=== PATIENT | female | born 1940 | race Caucasian/White ===

== ENCOUNTER 2017-01-09 13:32 | Emergency (ER) | payer OTHER ==
[~2017-01-09] VITALS: Ht 160 cm; Wt 56.5 kg
[~2017-01-09 13:32] MED LIST: BACT400T PO; CEPH500; HUMALOGP; LANTUSP SQ; LEVO50TA51 PO
[2017-01-09 13:43] VITALS: BP 153/86; PULSE 107; RESP 16; TEMP 98.3; O2SAT 96
[2017-01-09] MEDS ORDERED: LANTUS2P SQ (14:16)
[2017-01-09] MEDS ORDERED: NOVORP2 SQ (14:16)
[2017-01-09] MEDS ORDERED: LEVO50TA4 PO (14:16)
[2017-01-09] MEDS ORDERED: LIDOCAINE HCL 1% 50 ML VIAL INFIL ONE (15:00)
--- NOTE | 2017-01-09 15:06 | PD ---
HPI Chief Complaint: Eye Problems/Injury Time Seen by Provider: 14:50 Travel History International Travel<30 days: No Contact w/Intl Traveler<30days: No Traveled to known affect area: No History of Present Illness HPI 76-year-old female presents to the emergency room for evaluation of a stye to her right eye and an abscess to her right buttocks. Both started about the same time 4 days ago. She has been applying warm compresses to both without significant relief in symptoms. She reports the eye is more painful than the buttocks. She denies any spontaneous drainage from either. Denies problems with visual acuity. Denies fever, chills, nausea, and vomiting. PFSH Past Medical History High Cholesterol: Yes Diabetes: Yes Patient Takes Glucophage: No Diminished Hearing: No Gastrointestinal Disorders: Yes (IRRITABLE BOWEL SYNDROME) Hypertension: Yes Thyroid Disease: Yes Influenza Vaccination: No ?: Not Menopausal: Yes Past Surgical History Eye Surgery: Yes (LEFT EYE ANEURYSM;CATARACTS) Gynecologic Surgery: Yes (HYSTERECTOMY) Hysterectomy: Yes Tonsillectomy: Yes Other Surgery: Yes (SINUS) Social History Alcohol Use: No Tobacco Use: No Substance Use: No Allergies-Medications (Allergen,Severity, Reaction): Coded Allergies: procaine (Unverified Allergy, Severe, Anaphylaxis, 01/09/17) Reported Meds & Prescriptions Reported Meds & Active Scripts Active Clindamycin (Clindamycin HCl) 300 Mg Cap 300 Mg PO Q8HR 10 Days Reported Novolin R Inj (Insulin Human Regular) 1,000 Unit/10 Ml Vial 5 Units SQ TIDAC Max dose at bedtime:( )units; sugars less than 70,(0) units; sugars 150-199,(5)unit; sugars 200-249,(10)units; sugars 250-299,(15) units; sugars 300-349,(20)units; sugars greater than 349,(25)units Lantus Inj (Insulin Glargine) 1,000 Unit/10 Ml Vial 19 Units SQ DAILY Levothyroxine (Levothyroxine Sodium) 50 Mcg Tab 50 Mcg PO DAILY Review of Systems Except as stated in HPI: all other systems reviewed are Neg Physical Exam Narrative GENERAL: Well-nourished, well-developed female in no acute distress. Afebrile. Ambulatory. SKIN: Focused skin assessment warm/dry. There is an indurated area in the right upper lid and right buttocks which measure about 1 and 5 cm in diameter, respectively. Both are fluctuant with pointing but without drainage. There is a zone of inflammation around it but no lymphangitis. HEAD: Normocephalic. EYES: No scleral icterus. No injection or drainage. There is a large chalazion in the right upper, medial eyelid with surrounding erythema. NECK: Supple, trachea midline. No JVD or lymphadenopathy. CARDIOVASCULAR: Regular rate and rhythm without murmurs, gallops, or rubs. RESPIRATORY: Breath sounds equal bilaterally. No accessory muscle use. PSYCHIATRIC: No delusional thought processes. No hallucinations. Data Data Last Documented VS Vital Signs Date Time Temp Pulse Resp B/P Pulse Ox O2 Delivery O2 Flow Rate FiO2 01/09/17 13:43 98.3 107 16 153/86 96 Room Air Orders Lidocaine 1% Inj (50 Ml) (Xylocaine 1% I (01/09/17 15:00) MDM Medical Decision Making Medical Screen Exam Complete: Yes Emergency Medical Condition: Yes Medical Record Reviewed: Yes Differential Diagnosis Stye, chalazion, abscess, cellulitis Narrative Course 76-year-old female presents to the emergency room for evaluation of 2 separate complaints. First complaint is a stye to her right upper lid started 4 days ago. Second complaint is abscess to her right buttocks that started 4 days ago. Vital signs stable. Physical exam reveals a stye without spontaneous drainage of the right upper lid. No associated preseptal cellulitis. Patient initially reported that she had changes in visual acuity but when asked to read the eye chart, she refused stating her vision was fine. There is no injection or drainage from the eye. There is also a 5 cm abscess to the right buttocks without lymphangitis. Abscess was drained, see procedure note for details. Patient was encouraged to apply warm compresses to the eye for 20 minutes at a time, 5 times daily and follow-up with an dust control engineer in one week's symptoms persist for incision and drainage. She will be discharged with prescription for clindamycin. Told to return for worsening symptoms. She understands and agrees to plan. Procedures Procedure Narrative INCISION AND DRAINAGE OF ABSCESS: The area was prepped and was sterilely draped. A subcutaneous wheal of 1% lidocaine with a total number 3 mL was used to anesthetize the area properly. A number 11 scalpel was used to make a1 cm incision across the area of the abscess. The abscess was drained, complex loculations were broken down, and irrigated with normal saline. Cultures were obtained. Quarter inch iodoform packing was placed in the wound. Sterile dressing applied. Patient advised to have packing removed in two days. Diagnosis Primary Impression: Hordeolum externum of right upper eyelid Additional Impression: Abscess Referrals: Dehydration Unit Operator Primary Care Physician Patient Instructions: Abscess (ED), General Instructions, Stye (ED) Additional Instructions: Rest and drink plenty of fluids. Clindamycin as directed, until gone. Follow up with a primary care physician. Return to emergency room for worsening symptoms, as discussed. Scripts Clindamycin 300 Mg [id number] Mg PO Q8HR 10 Days Ref 0 Prov:Konrad De Santiago MD 01/09/17 Disposition: 01 DISCHARGE HOME Condition: Stable Kim Sykes Jan 09, 2017 15:06
[2017-01-09] MEDS ORDERED: CLIN1CAP6 PO (15:38)
== END 2017-01-09 16:21 | disposition home or self-care (01) ==
LOC: PHEFT 13:32
DX: H00.011 Hordeolum externum right upper eyelid (principal); L02.31 Cutaneous abscess of buttock; B95.62 Methicillin resistant Staphylococcus aureus infection as the cause of diseases classified elsewhere; E11.9 Type 2 diabetes mellitus without complications; I10 Essential (primary) hypertension; E07.9 Disorder of thyroid, unspecified; E78.00 Pure hypercholesterolemia, unspecified; Z79.4 Long term (current) use of insulin; Z87.19 Personal history of other diseases of the digestive system
CPT/HCPCS: 10060; 86403; 87070; 87186; 87205

== ENCOUNTER 2017-01-13 11:45 | Inpatient (IN) | payer OTHER, MEDICARE ==
[~2017-01-13] VITALS: Ht 162.6 cm; Wt 59.1 kg
[~2017-01-13 11:45] MED LIST changes: -BACT400T PO; -CEPH500; +CLIN1CAP6 PO; -HUMALOGP; +LANTUS2P SQ; -LANTUSP SQ; +LEVO50TA4 PO; -LEVO50TA51 PO; +NOVORP2 SQ
[2017-01-13] MEDS ORDERED: INSULIN NovoLIN REGULAR SUPPLEMENTAL SCALE ONE (13:05)
[2017-01-13 13:26] LABS: AUTOMATED NEUTROPHIL # 11.2 TH/MM3 (1.8-7.7); BASOPHIL % 0.3 % (0.0-2.0); EOSINOPHIL % 0.3 % (0.0-4.0); HEMO FLAGS DIFF FINAL; LYMPH % 5.7 % (9.0-44.0); LYMPHOCYTE # 0.7 TH/MM3 (1.0-4.8); MEAN CELL VOLUME 91.3 FL (80.0-100.0); MEAN CORPUSCULAR HGB CONC 32.9 % (32.0-36.0); MONO % 2.8 % (0.0-8.0); NEUT % 90.9 % (16.0-70.0); PLATELET COUNT 237 TH/MM3 (150-450); RED BLOOD COUNT 4.05 MIL/MM3 (4.00-5.30); RED CELL DISTRIBUTION WIDTH 12.8 % (11.6-17.2); WHITE BLOOD COUNT 12.2 TH/MM3 (4.0-11.0)
[2017-01-13 13:33] LABS: URINE COLOR YELLOW (YELLW/STRAW)
[2017-01-13 13:34] LABS: BLOOD, URINE TRACE (NEG); GLUCOSE,URINE NEG (NEG); KETONE, URINE 40 mg/dL (NEG); NITRITE,URINE NEG (NEG); PH, URINE 5.5 (5.0-8.5); RBC, URINE 0-3 /hpf (0-3); SQUAMOUS EPITHELIAL CELL URINE 0-5 /hpf (0-5); WBC, URINE 0-2 /hpf (0-5)
[2017-01-13 13:35] LABS: COMMENT (UR) CULT NOT INDICATED; CULTURE IF INDICATED CULT NOT INDICATED
[2017-01-13 13:39] LABS: BLOOD UREA NITROGEN 26 MG/DL (7-18); GLOMERULAR FILTRATION RATE 36 ML/MIN (>89)
[2017-01-13 13:40] LABS: ALKALINE PHOSPHATASE 144 U/L (45-117); ALT (GPT) 18 U/L (10-53); ANION GAP 16 MEQ/L (5-15); AST (GOT) 18 U/L (15-37); CHLORIDE 89 MEQ/L (98-107); CREATINE KINASE 115 U/L (26-192); POTASSIUM 5.1 MEQ/L (3.5-5.1); SODIUM (NA) 127 MEQ/L (136-145); TOTAL BILIRUBIN ADULT 0.8 MG/DL (0.2-1.0)
[2017-01-13] MEDS: SODIUM CHLOR 0.9% 1000 ML INJ 1,000 ML IV SCH (14:05)
--- NOTE | 2017-01-13 14:06 | PD ---
HPI Chief Complaint: nausea and diarrhea Time Seen by Provider: 13:55 Travel History International Travel<30 days: No Contact w/Intl Traveler<30days: No Traveled to known affect area: No History of Present Illness HPI 76-year-old female patient with history diabetes, recently seen for buttocks abscess, placed on antibiotics for several days and presents back to the ER today for nausea, multiple episodes of diarrhea daily, and not feeling well, chest pains, headaches, shoulder discomfort. She denies any vomiting, fevers, or other symptoms. She states that her symptoms seem to worsen every time she takes antibiotic. Modifying Factors: None Associated Signs & Symptoms: Nausea, diarrhea, chest discomfort, chills, neck and shoulder discomfort. Risk Factors: On antibiotics for several days PFSH Past Medical History High Cholesterol: Yes Diabetes: Yes Diminished Hearing: No Gastrointestinal Disorders: Yes (IRRITABLE BOWEL SYNDROME) Hypertension: Yes Thyroid Disease: Yes Menopausal: Yes Past Surgical History Eye Surgery: Yes (LEFT EYE ANEURYSM;CATARACTS) Gynecologic Surgery: Yes (HYSTERECTOMY) Hysterectomy: Yes Tonsillectomy: Yes Other Surgery: Yes (SINUS) Social History Alcohol Use: No Tobacco Use: No Substance Use: No Allergies-Medications (Allergen,Severity, Reaction): Coded Allergies: procaine (Unverified Allergy, Severe, Anaphylaxis, 01/09/17) Reported Meds & Prescriptions Reported Meds & Active Scripts Active Clindamycin (Clindamycin HCl) 300 Mg Cap 300 Mg PO Q8HR 10 Days Reported Novolin R Inj (Insulin Human Regular) 1,000 Unit/10 Ml Vial 5 Units SQ TIDAC Max dose at bedtime:( )units; sugars less than 70,(0) units; sugars 150-199,(5)unit; sugars 200-249,(10)units; sugars 250-299,(15) units; sugars 300-349,(20)units; sugars greater than 349,(25)units Lantus Inj (Insulin Glargine) 1,000 Unit/10 Ml Vial 19 Units SQ DAILY Levothyroxine (Levothyroxine Sodium) 50 Mcg Tab 50 Mcg PO DAILY Review of Systems Except as stated in HPI: all other systems reviewed are Neg Physical Exam Narrative GENERAL: Well-developed elderly white female patient currently in moderate distress. Awake and oriented 3. SKIN: Focused skin assessment warm/dry. HEAD: Atraumatic. Normocephalic. EYES: Pupils equal and round. No scleral icterus. No injection or drainage. ENT: No nasal bleeding or discharge. Mucous membranes pink and moist. NECK: Trachea midline. No JVD. CARDIOVASCULAR: Regular rate and rhythm. No murmur appreciated. RESPIRATORY: No accessory muscle use. Clear to auscultation. Breath sounds equal bilaterally. GASTROINTESTINAL: Abdomen soft, non-tender, nondistended. Hepatic and splenic margins not palpable. BACK: No CVA tenderness. No rash. No point tenderness on palpation of the spine. Buttocks abscess area appears to be self draining and the induration is 3 cm with no underlying fluctuance. MUSCULOSKELETAL: No obvious deformities. No clubbing. No cyanosis. No edema. NEUROLOGICAL: Awake and alert. No obvious cranial nerve deficits. Motor grossly within normal limits. Normal speech. PSYCHIATRIC: Appropriate mood and affect; insight and judgment normal. Data Data Orders Orders Insulin Human Reg Supp Scale (Novolin R (01/13/17 13:05) Complete Blood Count With Diff (01/13/17 11:50) Creatine Kinase (Cpk) (01/13/17 11:50) Comprehensive Metabolic Panel (01/13/17 11:50) Troponin I (01/13/17 11:50) Urinalysis - C+S If Indicated (01/13/17 11:50) Lactic Acid (01/13/17 11:50) Blood Culture (01/13/17 11:50) Blood Culture (01/13/17 12:10) Beta Hydroxybutyrate (Acetone) (01/13/17 11:50) Admit Order (Ed Use Only) (01/13/17 13:55) Labs Laboratory Tests Test 01/13/17 11:50 White Blood Count 12.2 TH/MM3 Red Blood Count 4.05 MIL/MM3 Hemoglobin 12.2 GM/DL Hematocrit 37.0 % Mean Corpuscular Volume 91.3 FL Mean Corpuscular Hemoglobin 30.0 PG Mean Corpuscular Hemoglobin Concent 32.9 % Red Cell Distribution Width 12.8 % Platelet Count 237 TH/MM3 Mean Platelet Volume 9.8 FL Neutrophils (%) (Auto) 90.9 % Lymphocytes (%) (Auto) 5.7 % Monocytes (%) (Auto) 2.8 % Eosinophils (%) (Auto) 0.3 % Basophils (%) (Auto) 0.3 % Neutrophils # (Auto) 11.2 TH/MM3 Lymphocytes # (Auto) 0.7 TH/MM3 Monocytes # (Auto) 0.3 TH/MM3 Eosinophils # (Auto) 0.0 TH/MM3 Basophils # (Auto) 0.0 TH/MM3 CBC Comment DIFF FINAL Differential Comment Urine Color YELLOW Urine Turbidity CLEAR Urine pH 5.5 Urine Specific [place] 1.028 Urine Protein NEG mg/dL Urine Glucose (UA) NEG mg/dL Urine Ketones 40 mg/dL Urine Occult Blood TRACE Urine Nitrite NEG Urine Bilirubin NEGATIVE Urine Leukocyte Esterase NEGATIVE Urine RBC 0-3 /hpf Urine WBC 0-2 /hpf Urine Squamous Epithelial Cells 0-5 /hpf Microscopic Urinalysis Comment CULT NOT INDICATED Blood Urea Nitrogen 26 MG/DL Creatinine 1.40 MG/DL Random Glucose 869 MG/DL Total Protein 6.9 GM/DL Albumin 3.5 GM/DL Calcium Level 9.1 MG/DL Alkaline Phosphatase 144 U/L Aspartate Amino Transf (AST/SGOT) 18 U/L Alanine Aminotransferase (ALT/SGPT) 18 U/L Total Bilirubin 0.8 MG/DL Sodium Level 127 MEQ/L Potassium Level 5.1 MEQ/L Chloride Level 89 MEQ/L Carbon Dioxide Level 22.0 MEQ/L Anion Gap 16 MEQ/L Estimat Glomerular Filtration Rate 36 ML/MIN Lactic Acid Level 2.5 mmol/L Total Creatine Kinase 115 U/L Troponin I LESS THAN 0.02 NG/ML B-Hydroxybutyrate 3.21 MMOL/L MDM Medical Decision Making Medical Screen Exam Complete: Yes Emergency Medical Condition: Yes Medical Record Reviewed: Yes Interpretation(s) EKG shows sinus tachycardia of 112 bpm with no signs of acute ST-T changes. Laboratory Tests Test 01/13/17 11:50 White Blood Count 12.2 TH/MM3 (4.0-11.0) Neutrophils (%) (Auto) 90.9 % (16.0-70.0) Lymphocytes (%) (Auto) 5.7 % (9.0-44.0) Neutrophils # (Auto) 11.2 TH/MM3 (1.8-7.7) Lymphocytes # (Auto) 0.7 TH/MM3 (1.0-4.8) Urine Ketones 40 mg/dL (NEG) Urine Occult Blood TRACE (NEG) Blood Urea Nitrogen 26 MG/DL (7-18) Creatinine 1.40 MG/DL (0.50-1.00) Random Glucose 869 MG/DL (74-106) Alkaline Phosphatase 144 U/L (45-117) Sodium Level 127 MEQ/L (136-145) Chloride Level 89 MEQ/L (98-107) Anion Gap 16 MEQ/L (5-15) Estimat Glomerular Filtration Rate 36 ML/MIN (>89) Lactic Acid Level 2.5 mmol/L (0.4-2.0) Troponin I LESS THAN 0.02 NG/ML B-Hydroxybutyrate 3.21 MMOL/L (0.00-0.39) Differential Diagnosis Sepsis versus C. difficile diarrhea versus dehydration versus metabolic issues Narrative Course Lab work shows significant dehydration and severe hyperglycemia and hyponatremia. IV fluids and insulin was given in the ER. Her ketones are also elevated and I think that this signifies underlying dehydration. Patient states she has been trying to drink lots of fluids. My plan at this point would be to admit her for further treatment. Case was discussed with Dr. Ryder for admission. Diagnosis Primary Impression: Diarrhea Additional Impressions: Hyperglycemia due to type 2 diabetes mellitus Hyponatremia Admitting Information Admitting Physician Requests: Admit Brittney Feng MD Jan 13, 2017 14:06
[2017-01-13] MEDS ORDERED: NALOXONE HCL 0.4 MG/ML AMP IV PRN (14:15)
[2017-01-13] MEDS ORDERED: ACETAMINOPHEN 325 MG TAB PO PRN (14:15)
[2017-01-13] MEDS ORDERED: LACTULOSE SYRUP 20 GM/30 ML CUP PO PRN (14:15)
[2017-01-13] MEDS ORDERED: SODIUM CHLORIDE 0.9% FLUSH 10 ML FLUSH IV FLUSH PRN (14:15)
[2017-01-13] MEDS ORDERED: INSULIN DETEMIR 100 UNITS/ML VIAL SQ ONE (14:15)
[2017-01-13] MEDS ORDERED: GLUCAGON 1 MG/ML VIAL OTHER PRN (14:15)
[2017-01-13] MEDS ORDERED: DEXTROSE 50% IN WATER 50 ML VIAL(D50) IV PRN (14:15)
--- NOTE | 2017-01-13 14:29 | RADRPT ---
EXAM DATE/TIME: 01/13/2017 12:25 [facility] COMPARISON: No previous studies available for comparison. INDICATIONS : Short of breath. MEDICAL HISTORY : None. SURGICAL HISTORY : None. ENCOUNTER: Initial ACUITY: 1 day PAIN SCORE: 6/10 LOCATION: Bilateral chest FINDINGS: A single view of the chest demonstrates the lungs to be symmetrically aerated without evidence of mas s, infiltrate or effusion. There is slight interstitial prominence and cardiomegaly. The cardiomedias tinal contours are unremarkable. Osseous structures are intact. CONCLUSION: Cardiomegaly with slight interstitial prominence, could be interstitial edema. Nomi Vargas MD on January 13, 2017 at 12:35 Board Certified Radiologist. This report was verified electronically.
[2017-01-13 14:45] VITALS: BP 136/73
[2017-01-13] MEDS ORDERED: CALCIUM CARBONATE 500 MG CHEWABLE TAB CHEW PRN (14:45)
--- NOTE | 2017-01-13 14:47 | HHI.HP ---
[facility] Service [facility] Primary Care Physician Unknown Admission Diagnosis dehydration/hyperglycemia/hyponatremia/diarrhea Diagnoses: (1) Diabetic ketoacidosis Diagnosis: Principal (2) Hyponatremia Diagnosis: Principal (3) Diarrhea Diagnosis: Principal (4) Lactic acid acidosis Diagnosis: Principal (5) Acute renal failure superimposed on stage 2 chronic kidney disease Diagnosis: Principal Chief Complaint: Distant feel right, tense Travel History International Travel<30 Days: No Contact w/Intl Traveler <30 Da: No Traveled to Known Affected Are: No History of Present Illness Written by Brandyn Young, acting as scribe for Dr. Ryder on 01/13/17 at 14 :35. 76-year-old female with known history of diabetes, hypertension, hyperlipidemia, hypothyroidism, recent history of gluteal abscess who presented to hospital because she just didn't feel well. She cannot explain exactly her symptoms other than she does not feel good. However the patient was here in the ER 4 days ago and had incision and drainage done to a right gluteal abscess and was started on clindamycin. Patient states that she was doing well and the next day she felt fantastic. She states that every time that she took the medication, she got heartburn. She thought that she may have been either given the wrong medication or overmedicated. The patient started having weird sensation in which she described as a tense feeling in her upper body. She has some mild abdominal cramping this morning. She had 3 bowel movements today which were soft in nature. Her bowel movements were normal yesterday. The patient indicates that she did not take her insulin this morning and she went to [facility] and got a smoothie, after that she remembered about her insulin so she went home and took it, by that time she was not feeling that well so she came to the hospital for evaluation. Patient indicates that she has not checked her sugar because she has been out of test strips. After further assessment the patient she appears to be rather noncompliant with her medications. Patient had workup done in emergency department and found to have uncontrolled diabetes with anion gap, lactic acidosis, hyponatremia. For those reasons is recommended that the patient be observed in the hospital Review of Systems Gastrointestinal: COMPLAINS OF: Abdominal pain, Diarrhea Except as stated in HPI: all other systems reviewed are Neg Past Family Social History Past Medical History Hypertension Hyperlipidemia Diabetes Hypothyroidism Past Surgical History Hysterectomy Cataract surgery Tonsillectomy Reported Medications Reported Meds & Active Scripts Active Clindamycin (Clindamycin HCl) 300 Mg Cap 300 Mg PO Q8HR 10 Days Reported Novolin R Inj (Insulin Human Regular) 1,000 Unit/10 Ml Vial 5 Units SQ TIDAC Max dose at bedtime:( )units; sugars less than 70,(0) units; sugars 150-199,(5)unit; sugars 200-249,(10)units; sugars 250-299,(15) units; sugars 300-349,(20)units; sugars greater than 349,(25)units Lantus Inj (Insulin Glargine) 1,000 Unit/10 Ml Vial 19 Units SQ DAILY Levothyroxine (Levothyroxine Sodium) 50 Mcg Tab 50 Mcg PO DAILY Allergies: Coded Allergies: procaine (Unverified Allergy, Severe, Anaphylaxis, 01/13/17) Family History Reviewed and significant for heart disease and diabetes. Mother from myocardial infarction, she did have diabetes. Social History Patient denies any tobacco, alcohol or illicit drugs Physical Exam Physical Exam GENERAL: Well-developed, well-nourished, in no acute distress. alert and orientated HEENT: Head is normocephalic without any lesions or masses noted. Facial features are symmetric. Eyes: Pupils equal round reactive to light. Extraocular muscles are intact. Conjunctivae were clear. Oropharyngeal: Pharynx without any erythema edema. Tongue is midline without deviation. Buccal mucosa is moist without any masses or lesions NECK: Supple without any masses. Trachea midline no deviation. No JVD, no bruits are appreciated CARDIAC: Regular rhythm, regular rate. S1/S2 are heard. No murmurs gallops or rubs. LUNGS: Clear to auscultation bilaterally. No wheeze, rhonchi or rales. No use of accessory muscles on inspiration or expiration. ABDOMEN: Soft, nontender. Nondistended. Bowel sounds heard in all 4 quadrants. No organomegaly or masses. Negative rebound, negative guarding EXTREMITIES: No edema, pulses are equal bilaterally. No cyanosis or clubbing NEUROLOGY: Mood and affect appear appropriate. Cranial nerves II through XII grossly intact. Muscle strength 5/5 in upper and lower extremities bilaterally. Deep tendon reflexes are 2+ in upper and lower extremities bilaterally. RIGHT GLUTEUS: Patient has approximately 5 mm incision with a wet eschar wound noted with erythema. No exudates were able to be expressed. Laboratory Laboratory Tests Test 01/13/17 11:50 01/13/17 14:20 White Blood Count 12.2 Red Blood Count 4.05 Hemoglobin 12.2 Hematocrit 37.0 Mean Corpuscular Volume 91.3 Mean Corpuscular Hemoglobin 30.0 Mean Corpuscular Hemoglobin Concent 32.9 Red Cell Distribution Width 12.8 Platelet Count 237 Mean Platelet Volume 9.8 Neutrophils (%) (Auto) 90.9 Lymphocytes (%) (Auto) 5.7 Monocytes (%) (Auto) 2.8 Eosinophils (%) (Auto) 0.3 Basophils (%) (Auto) 0.3 Neutrophils # (Auto) 11.2 Lymphocytes # (Auto) 0.7 Monocytes # (Auto) 0.3 Eosinophils # (Auto) 0.0 Basophils # (Auto) 0.0 CBC Comment DIFF FINAL Differential Comment Urine Color YELLOW Urine Turbidity CLEAR Urine pH 5.5 Urine Specific [place] 1.028 Urine Protein NEG Urine Glucose (UA) NEG Urine Ketones 40 Urine Occult Blood TRACE Urine Nitrite NEG Urine Bilirubin NEGATIVE Urine Leukocyte Esterase NEGATIVE Urine RBC 0-3 Urine WBC 0-2 Urine Squamous Epithelial Cells 0-5 Microscopic Urinalysis Comment CULT NOT INDICATED Blood Urea Nitrogen 26 Creatinine 1.40 Random Glucose 869 Total Protein 6.9 Albumin 3.5 Calcium Level 9.1 Alkaline Phosphatase 144 Aspartate Amino Transf (AST/SGOT) 18 Alanine Aminotransferase (ALT/SGPT) 18 Total Bilirubin 0.8 Sodium Level 127 Potassium Level 5.1 Chloride Level 89 Carbon Dioxide Level 22.0 Anion Gap 16 Estimat Glomerular Filtration Rate 36 Lactic Acid Level 2.5 Total Creatine Kinase 115 Troponin I LESS THAN 0.02 B-Hydroxybutyrate 3.21 Date/Time Source Procedure Growth Status 01/13/17 12:10 Blood Peripheral Aerobic Blood Culture Pending Received 01/13/17 12:10 Blood Peripheral Anaerobic Blood Culture Pending Received 01/13/17 14:25 Wound Buttock Gram Stain Pending Received 01/13/17 14:25 Wound Buttock Wound Culture Pending Received Result Diagram: 01/13/17 1150 01/13/17 1150 Caprini VTE Risk Assessment Caprini VTE Risk Assessment: Mod/High Risk (score >= 2) Caprini Risk Assessment Model Point Value = 1 Point Value = 2 Point Value = 3 Point Value = 5 Age 41-60 Minor surgery BMI > 25 kg/m2 Swollen legs Varicose veins or History of unexplained or recurrent spontaneous Oral contraceptives or hormone replacement Sepsis (< 1 month) Serious lung disease, including pneumonia (< 1 month) Abnormal pulmonary function Acute myocardial infarction Congestive heart failure (< 1 month) History of inflammatory bowel disease Medical patient at bed rest Age 61-74 Arthroscopic surgery Major open surgery (> 45 min) Laparoscopic surgery (> 45 min) Malignancy Confined to bed (> 72 hours) Immobilizing plaster cast Central venous access Age >= 75 History of VTE Family history of VTE Factor V Leiden Prothrombin [id number] Lupus anticoagulant Anticardiolipin antibodies Elevated serum homocysteine Heparin-induced thrombocytopenia Other congenital or acquired thrombophilia Stroke (< 1 month) Elective arthroplasty Hip, pelvis, or leg fracture Acute spinal cord injury (< 1 month) Prophylaxis Regimen Total Risk Factor Score Risk Level Prophylaxis Regimen 0-1 Low Early ambulation 2 Moderate Order ONE of the following: *Sequential Compression Device (SCD) *Heparin 5000 units SQ BID 3-4 Higher Order ONE of the following medications: *Heparin 5000 units SQ TID *Enoxaparin/Lovenox 40 mg SQ daily (WT < 150 kg, CrCl > 30 mL/min) *Enoxaparin/Lovenox 30 mg SQ daily (WT < 150 kg, CrCl > 10-29 mL/min) *Enoxaparin/Lovenox 30 mg SQ BID (WT < 150 kg, CrCl > 30 mL/min) AND/OR *Sequential Compression Device (SCD) 5 or more Highest Order ONE of the following medications: *Heparin 5000 units SQ TID (Preferred with Epidurals) *Enoxaparin/Lovenox 40 mg SQ daily (WT < 150 kg, CrCl > 30 mL/min) *Enoxaparin/Lovenox 30 mg SQ daily (WT < 150 kg, CrCl > 10-29 mL/min) *Enoxaparin/Lovenox 30 mg SQ BID (WT < 150 kg, CrCl > 30 mL/min) AND *Sequential Compression Device (SCD) Assessment and Plan Assessment and Plan Diabetic ketoacidosis with anion gap Patient did not take her insulin this morning and had a smoothie and has been not that compliant with her medications and monitoring her diabetes Request diabetic/dietary education Start sliding scale insulin every hour and adjust for control of diabetes Obtain hemoglobin A1c Monitor BMP until anion gap has closed Pseudohyponatremia secondary to glucose, corrected sodium 141 Acute renal failure superimposed on chronic kidney disease stage II Likely secondary to diabetic ketoacidosis Continue IV fluids Monitor renal functions Stool/diarrhea with mild lactic acidosis Recent clindamycin use Check stool for C. difficile Right gluteal abscess, healing well Hold clindamycin at this time due to possible C. difficile infection Vancomycin has been started DVT prevention Subcutaneous Lovenox Addendum to Inpatient Note Additional Information This note was transcribed by [email or web address]. I, Dr. Cece Ryder personally performed the history, physical exam, and medical decision making; and confirmed the accuracy of the information in the transcribed note. Authenticated by Dr. Cece Ryder on 01/13/17 at 14:49. Problem Qualifiers (1) Diabetic ketoacidosis: Qualified Codes: E13.10 - Other specified diabetes mellitus with ketoacidosis without coma (2) Diarrhea: Qualified Codes: R19.7 - Diarrhea, unspecified Brandyn Young Jan 13, 2017 14:47 Cece Ryder MD Jan 13, 2017 14:49
[2017-01-13] MEDS ORDERED: NOVOLOGP2 SQ (15:43)
[2017-01-13 16:00] VITALS: BP 142/82; PULSE 105; RESP 16; TEMP 98.1; O2SAT 97
[2017-01-13] MEDS: VANCOMYCIN INJ 1,000 MG in SODIUM CHLOR 0.9% 250 ML INJ 250 ML IV SCH (16:22)
[2017-01-13] MEDS: ENOXAPARIN SODIUM 40 MG/0.4 ML SYRINGE SQ SCH (16:23)
[2017-01-13] MEDS: INSULIN ASPART SUPPLEMENTAL SCALE SQ SCH ×2 (17:17→21:41)
[2017-01-13 17:39] LABS: FREE T3 1.77 PG/ML (2.18-3.98); FREE T4 1.66 NG/DL (0.76-1.46)
[2017-01-13 20:29] VITALS: BP 106/60; PULSE 101; RESP 20; TEMP 98; O2SAT 96
--- NOTE | 2017-01-13 20:29 | EKG ---
Date Performed: 01/13/2017 Time Performed: 11:54:04 PTAGE: 76 years EKG: SINUS TACHYCARDIA MINIMAL NONSPECIFIC ST DEPRESSION ABNORMAL RHYTHM ECG NO PREVIOUS TRACING DOCTOR: Daryl Rivera Interpretating Date/Time 01/13/2017 20:27:07
[2017-01-13] MEDS: SODIUM CHLORIDE 0.9% FLUSH 10 ML FLUSH IV FLUSH SCH (21:20)
[2017-01-14] VITALS (7 sets, daily range): BP systolic 110–155; BP diastolic 68–95; PULSE 80–94; RESP 16–20; TEMP 97.7–99; O2SAT 96–98
[2017-01-14] MEDS: SODIUM CHLOR 0.9% 1000 ML INJ 1,000 ML IV SCH ×4 (01:49→23:30)
[2017-01-14] MEDS: VANCOMYCIN INJ 1,000 MG in SODIUM CHLOR 0.9% 250 ML INJ 250 ML IV SCH ×2 (02:19→15:51)
[2017-01-14 05:32] LABS: POTASSIUM 4.2 MEQ/L (3.5-5.1)
[2017-01-14] MEDS: LEVOTHYROXINE SODIUM 50 MCG TAB PO SCH (05:32)
[2017-01-14 05:37] LABS: BICARBONATE 27.9 MEQ/L (21.0-32.0)
[2017-01-14] MEDS ORDERED: INSULIN DETEMIR 100 UNITS/ML VIAL SQ SCH ×2 (08:00→09:00)
[2017-01-14] MEDS: SODIUM CHLORIDE 0.9% FLUSH 10 ML FLUSH IV FLUSH SCH ×2 (09:00→20:29)
--- NOTE | 2017-01-14 09:12 | HHI.PR ---
Subjective Remarks The patient states that she feels much better. No further episodes of loose stools. Patient denies any chest pain overnight. Patient states that she did not have chest pain yesterday, but she did have what she calls a cramp in her chest and arms yesterday beginning about 10:30 and lasting until she arrived to the emergency department. The patient also states that she had some periorbital eye spasm in the right eye yesterday and she is concerned that the hordeolum is coming back. Overnight the patient's blood sugar dipped into the 30s. The patient is eating well and no longer feels weak. Of note the patient's daughter called the nurse and informed the nurse that the patient is homeless and currently living out of her car, is "stubborn" and refuses to go to an assisting living facility, and that the daughter has concerns about the patient's capacity at times. Objective Vitals Vital Signs Date Time Temp Pulse Resp B/P (MAP) Pulse Ox O2 Delivery O2 Flow Rate FiO2 01/14/17 08:00 97.9 93 20 138/81 (100) 96 01/14/17 04:38 98.3 80 16 142/78 (99) 98 01/14/17 01:35 93 01/14/17 00:13 98.1 90 18 110/68 (82) 98 01/13/17 20:29 98.0 101 20 106/60 (75) 96 01/13/17 16:00 98.1 105 16 142/82 (102) 97 01/13/17 14:45 104 18 136/73 (94) 98 I/O 01/13/17 01/13/17 01/13/17 01/14/17 01/14/17 01/14/17 06:59 14:59 22:59 06:59 14:59 22:59 Intake Total 985 ml 1872 ml Balance 985 ml 1872 ml Intake IV Total 985 ml 1872 ml # Voids 2 1 Result Diagram: 01/13/17 1150 01/14/17 0445 Objective Remarks GENERAL: Well-nourished, well-developed very pleasant female patient. SKIN: Warm and dry. HEAD: Normocephalic. EYES: No scleral icterus. No injection or drainage. No hordeolum noted. No orbital edema. NECK: Supple, trachea midline. No JVD or lymphadenopathy. CARDIOVASCULAR: Regular rate and rhythm without murmurs, gallops, or rubs. RESPIRATORY: Breath sounds equal bilaterally. No accessory muscle use. GASTROINTESTINAL: Abdomen soft, non-tender, nondistended. EXTREMITIES: No cyanosis, or edema. NEUROLOGICAL: Awake, alert, and oriented x 3. Non-focal. Normal insight and judgment. Capacity appears intact. A/P Problem List: (1) Hyponatremia ICD Code: E87.1 - Hypo-osmolality and hyponatremia Status: Acute (2) Diarrhea ICD Code: R19.7 - Diarrhea, unspecified Status: Resolved (3) Lactic acid acidosis ICD Code: E87.2 - Acidosis Status: Resolved (4) Acute renal failure superimposed on stage 2 chronic kidney disease ICD Code: N17.9 - Acute kidney failure, unspecified; N18.2 - Chronic kidney disease, stage 2 (mild) Status: Resolved (5) Abscess of buttock ICD Code: L02.31 - Cutaneous abscess of buttock (6) MRSA infection ICD Code: A49.02 - Methicillin resistant Staphylococcus aureus infection, unspecified site Status: Acute (7) Elevated troponin I level ICD Code: R74.8 - Abnormal levels of other serum enzymes (8) Uncontrolled type 2 diabetes mellitus with hyperosmolar nonketotic hyperglycemia ICD Code: E11.00 - Type 2 diabetes mellitus with hyperosmolarity without nonketotic hyperglycemic-hyperosmolar coma ([facility]) Status: Resolved (9) Hyperglycemia due to type 2 diabetes mellitus ICD Code: E11.65 - Type 2 diabetes mellitus with hyperglycemia Status: Acute Assessment and Plan -Hyperglycemic, hyperosmolar state without coma, resolved. Overnight she had an episode of hypoglycemia Patient did not take her insulin on day of admission and had a smoothie and has been not that compliant with her medications and monitoring her diabetes Request diabetic/dietary education Change sliding scale to low NovoLog insulin including 3 AM insulin Obtain hemoglobin A1c Decrease Levemir to 10 units subcutaneous before meals Monitor BMP until anion gap has closed Pseudohyponatremia secondary to glucose Acute renal failure superimposed on chronic kidney disease stage II - resolved. Continue IV fluids Monitor renal functions Stool/diarrhea with mild lactic acidosis - no further stools since admission Recent clindamycin use Check stool for C. difficile-if she has another loose stool Continue Lactinex Chest pain, "cramping" in nature, resolved -Mild troponin elevation to 0.2, cardiology has been consulted for opinion Right gluteal abscess, healing well, no further drainage, MRSA positive Hold clindamycin at this time due to possible C. difficile infection Continue Vancomycin Hypothyroidism TSH is within normal limits, the patient reports noncompliance with her Synthroid. Synthroid 50 g daily has been resumed. Social situation - daughter reports that the patient is homeless and living out of her car. Patient appears to have capacity at this time. We'll consult case management for assistance. DVT prevention Subcutaneous Lovenox Problem Qualifiers (1) Diarrhea: Qualified Codes: R19.7 - Diarrhea, unspecified Cece Ryder MD Jan 14, 2017 09:12
[2017-01-14] MEDS ORDERED: GLUCAGON 1 MG/ML VIAL OTHER PRN (09:15)
[2017-01-14] MEDS ORDERED: DEXTROSE 50% IN WATER 50 ML VIAL(D50) IV PRN (09:15)
--- NOTE | 2017-01-14 10:52 | MB ---
cc: MILLIE ZIMMERMAN MD DATE OF CONSULTATION: 01/14/2017 REASON FOR CONSULTATION Atypical chest pain and abnormal troponin. HISTORY OF PRESENT ILLNESS The patient is a very pleasant 76-year-old woman with a history of severe diabetes, hypertension, hyperlipidemia, hypothyroidism, who presented with generally vague symptoms of not feeling well but did include some vague chest and bilateral shoulder discomfort. She was really not able to qualify these symptoms any further. As part of her work-up she had two sets of troponins which were mildly abnormal and thus I was consulted. She says her sugars have been quite bad lately, particularly as she missed a dose of insulin, and on admission her sugar was 869. She is feeling somewhat better without that sense of chest discomfort. She does say intermittently she gets what she calls indigestion. No shortness of breath, lightheadedness, dizziness or syncope. PAST MEDICAL HISTORY As above. MEDICATIONS Current medications: 1. Insulin. 2. IV vancomycin. ALLERGIES PROCAINE. PHYSICAL EXAMINATION VITAL SIGNS: Afebrile. Pulse 93, respiratory rate 20, BP 130/81. Satting 96 on room air. GENERAL: A pleasant well-appearing woman in no distress. NECK: No JVD. LUNGS: Clear to auscultation bilaterally. CARDIOVASCULAR: Regular rate and rhythm. No murmurs appreciated. ABDOMEN: Benign. EXTREMITIES: No edema. LABORATORY DATA Sodium 141, potassium 4.2, chloride 106, bicarb 27.9, BUN 19, creatinine 0.82, glucose 246 down from 869. The third troponin is slightly positive at 0.2. White count 12.2, hematocrit 37.0, platelets 237. IMAGING Chest x-ray showed cardiomegaly. EKG EKG showed sinus tachycardia with diffuse ST changes, nonspecific but could indicate ischemia. IMPRESSION/RECOMMENDATIONS Elevated troponin with vague chest discomfort. Given her elevated troponin and abnormal EKG and significant risk factors, I did offer her a cardiac catheterization but she declines at this time and wishes to pursue noninvasive diagnostics first such as a stress test. I will order the nuclear stress test and if there is significant ischemia I would likely again recommend a cardiac catheterization. Further recommendations will be based on the stress test and her clinical course. Thank you again for the opportunity to participate in this patient's care. MD KEVEN Oliver /10:29 AM /10:41 AM
[2017-01-14] MEDS ORDERED: INSULIN ASPART SUPPLEMENTAL SCALE SQ SCH (11:00)
[2017-01-14] MEDS: INSULIN ASPART SUPPLEMENTAL SCALE SQ SCH ×3 (11:52→20:31)
[2017-01-14 14:46] LABS: C. DIFF EPI 027 PRESUMPTIVE NEGATIVE (NEGATIVE)
[2017-01-14] MEDS: ENOXAPARIN SODIUM 40 MG/0.4 ML SYRINGE SQ SCH (15:50)
[2017-01-14 16:08] LABS: HEMOGLOBIN A1a 1.4 %; HEMOGLOBIN A1b 1.3 %; HEMOGLOBIN Ao 73.3 %; HEMOGLOBIN F 1.9 %; HEMOGLOBIN LA1C 4.3 %; HEMOGLOBIN P3 6.2 %
[2017-01-15] VITALS (7 sets, daily range): BP systolic 122–168; BP diastolic 71–97; PULSE 75–103; RESP 16–20; TEMP 95.8–98.5; O2SAT 93–98
[2017-01-15] MEDS: VANCOMYCIN INJ 1,000 MG in SODIUM CHLOR 0.9% 250 ML INJ 250 ML IV SCH ×2 (02:48→16:20)
[2017-01-15] MEDS: LEVOTHYROXINE SODIUM 50 MCG TAB PO SCH (05:47)
[2017-01-15] MEDS: SODIUM CHLOR 0.9% 1000 ML INJ 1,000 ML IV SCH (05:52)
[2017-01-15] MEDS: INSULIN ASPART SUPPLEMENTAL SCALE SQ SCH ×4 (07:00→20:38)
[2017-01-15] MEDS ORDERED: Vancomycin Consult Pharmacy 1 EA OTHER SCH (08:15)
[2017-01-15] MEDS ORDERED: cloNIDine HCL 0.1 MG TAB PO PRN (08:30)
[2017-01-15] MEDS: SODIUM CHLORIDE 0.9% FLUSH 10 ML FLUSH IV FLUSH SCH ×2 (08:47→20:38)
[2017-01-15] MEDS: INSULIN DETEMIR 100 UNITS/ML VIAL SQ SCH (08:50)
--- NOTE | 2017-01-15 10:08 | HHI.PR ---
Subjective Remarks The patient states that she does not want to have a stress test and that she does not feel that anything is wrong with her heart. She feels that the stress test will cause her to have a heart attack as they make her very anxious. Her blood sugar dipped down into the 50s again last night. The patient states that in the past she has had trouble with her blood sugar dipping down at night. The patient also states that her sister told her yesterday that she seemed confused on the phone. The patient does endorse some mild forgetfulness. The patient states that she lives in a house on [address] in [place]. The patient states that she receives Accu-Cheks from her primary care physician's office and she agrees to go there and pick those up right away after discharge from the hospital. No further soft or loose stools. Objective Vitals Vital Signs Date Time Temp Pulse Resp B/P (MAP) Pulse Ox O2 Delivery O2 Flow Rate FiO2 01/15/17 08:00 97.4 98 16 168/96 (120) 97 01/15/17 04:00 97.6 90 16 142/71 (94) 94 01/15/17 00:00 97.5 93 16 150/92 (111) 97 01/14/17 20:00 97.7 88 16 155/95 (115) 97 01/14/17 20:00 87 01/14/17 16:00 99.0 94 20 144/85 (104) 98 01/14/17 12:00 97.8 94 20 153/87 (109) 98 I/O 01/14/17 01/14/17 01/14/17 01/15/17 01/15/17 01/15/17 07:00 15:00 23:00 07:00 15:00 23:00 Intake Total 1872 ml 450 ml 940 ml 3847 ml Balance 1872 ml 450 ml 940 ml 3847 ml Intake Oral 450 ml 240 ml 240 ml IV Total 1872 ml 700 ml 3607 ml # Voids 1 3 2 2 # Bowel Movements 2 0 0 Result Diagram: 01/13/17 1150 01/14/17 5475 Objective Remarks GENERAL: Well-nourished, well-developed very pleasant female patient. SKIN: Warm and dry. HEAD: Normocephalic. EYES: No scleral icterus. No injection or drainage. No hordeolum noted. No orbital edema. NECK: Supple, trachea midline. No JVD or lymphadenopathy. CARDIOVASCULAR: Regular rate and rhythm without murmurs, gallops, or rubs. RESPIRATORY: Breath sounds equal bilaterally. No accessory muscle use. GASTROINTESTINAL: Abdomen soft, non-tender, nondistended. EXTREMITIES: No cyanosis, or edema. NEUROLOGICAL: Awake, alert, and oriented x 3. Non-focal. Normal insight and judgment. Capacity appears intact. A/P Problem List: (1) Hyponatremia ICD Code: E87.1 - Hypo-osmolality and hyponatremia Status: Resolved (2) Diarrhea ICD Code: R19.7 - Diarrhea, unspecified Status: Resolved (3) Lactic acid acidosis ICD Code: E87.2 - Acidosis Status: Resolved (4) Acute renal failure superimposed on stage 2 chronic kidney disease ICD Code: N17.9 - Acute kidney failure, unspecified; N18.2 - Chronic kidney disease, stage 2 (mild) Status: Resolved (5) Abscess of buttock ICD Code: L02.31 - Cutaneous abscess of buttock (6) MRSA infection ICD Code: A49.02 - Methicillin resistant Staphylococcus aureus infection, unspecified site Status: Acute (7) Elevated troponin I level ICD Code: R74.8 - Abnormal levels of other serum enzymes (8) Uncontrolled type 2 diabetes mellitus with hyperosmolar nonketotic hyperglycemia ICD Code: E11.00 - Type 2 diabetes mellitus with hyperosmolarity without nonketotic hyperglycemic-hyperosmolar coma ([facility]) Status: Resolved (9) Hyperglycemia due to type 2 diabetes mellitus ICD Code: E11.65 - Type 2 diabetes mellitus with hyperglycemia Status: Acute Assessment and Plan -Hyperglycemic, hyperosmolar state without coma, resolved. Overnight she had another episode of hypoglycemia, despite being on much lower dose of insulin and on her home regimen. Patient did not take her insulin on day of admission and had a smoothie and has been not that compliant with her medications and monitoring her diabetes Request diabetic/dietary education Due to the hypoglycemia overnight I will decrease Levemir to 8 units subcutaneous a.m., she tends to run high in the morning it dipped down at night , I will add NovoLog 3 units with breakfast and lunch. Continue sliding scale to low NovoLog insulin including 3 AM insulin hemoglobin A1c is 11.5 Acute renal failure superimposed on chronic kidney disease stage II - resolved. Hep-Lock IV Stool/diarrhea with mild lactic acidosis -resolved Recent clindamycin use C. difficile test was negative Continue Lactinex Chest pain, "cramping" in nature, resolved -Mild troponin elevation to 0.2, cardiology has been consulted for opinion and offered catheter, which patient declined. Recommended nuclear stress test, however patient is declining that. I did classification counselor her that she has significant risk factors and with the elevated troponin may have had a small heart attack and that I would strongly recommend she pursue with cardiac workup however the patient declines. Right gluteal abscess, healing well, no further drainage, MRSA positive Hold clindamycin at this time due to possible C. difficile infection Continue Vancomycin Hypothyroidism TSH is within normal limits, the patient reports noncompliance with her Synthroid. Synthroid 50 g daily has been resumed. Social situation - daughter reports that the patient is homeless and living out of her car. Patient appears to have capacity at this time. We'll consult case management for assistance. Patient tells me that she lives in a house on [address] and [place]. She does state that her sister told her yesterday that she seemed confused. The patient does endorse mild forgetfulness. I will obtain an ST cognitive evaluation. DVT prevention Subcutaneous Lovenox Problem Qualifiers (1) Diarrhea: Qualified Codes: R19.7 - Diarrhea, unspecified Cece Ryder MD Jan 15, 2017 10:08
[2017-01-15] MEDS: INSULIN ASPART 1,000 UNITS/10 ML VIAL SQ SCH (12:00)
[2017-01-15] MEDS ORDERED: PHARMACY ORDERED LAB ONE (14:45)
[2017-01-15] MEDS: ENOXAPARIN SODIUM 40 MG/0.4 ML SYRINGE SQ SCH (16:20)
[2017-01-16] VITALS (8 sets, daily range): BP systolic 92–162; BP diastolic 54–92; PULSE 65–95; RESP 16–20; TEMP 95.7–99; O2SAT 96–98
[2017-01-16] MEDS: VANCOMYCIN INJ 1,000 MG in SODIUM CHLOR 0.9% 250 ML INJ 250 ML IV SCH ×2 (04:00→15:53)
[2017-01-16] MEDS: LEVOTHYROXINE SODIUM 50 MCG TAB PO SCH (05:45)
[2017-01-16 06:49] LABS: AUTOMATED NEUTROPHIL # 2.2 TH/MM3 (1.8-7.7); BASOPHIL % 0.3 % (0.0-2.0); EOSINOPHIL # 0.2 TH/MM3 (0-0.4); EOSINOPHIL % 4.3 % (0.0-4.0); HEMATOCRIT 35.2 % (35.0-46.0); HEMO FLAGS DIFF FINAL; LYMPHOCYTE # 1.5 TH/MM3 (1.0-4.8); MEAN CORPUSCULAR HEMOGLOBIN 29.1 PG (27.0-34.0); MEAN CORPUSCULAR HGB CONC 33.1 % (32.0-36.0); MONO % 8.8 % (0.0-8.0); NEUT % 51.6 % (16.0-70.0); PLATELET COUNT 222 TH/MM3 (150-450); RED BLOOD COUNT 4.01 MIL/MM3 (4.00-5.30); RED CELL DISTRIBUTION WIDTH 12.4 % (11.6-17.2); WHITE BLOOD COUNT 4.3 TH/MM3 (4.0-11.0)
[2017-01-16 06:59] LABS: BICARBONATE 29.9 MEQ/L (21.0-32.0)
[2017-01-16] MEDS: INSULIN ASPART SUPPLEMENTAL SCALE SQ SCH ×5 (07:00→20:55)
[2017-01-16] MEDS: SODIUM CHLORIDE 0.9% FLUSH 10 ML FLUSH IV FLUSH SCH ×2 (09:56→21:03)
[2017-01-16] MEDS: INSULIN DETEMIR 100 UNITS/ML VIAL SQ SCH (09:57)
[2017-01-16] MEDS: INSULIN ASPART 1,000 UNITS/10 ML VIAL SQ SCH ×2 (09:58→12:48)
[2017-01-16] MEDS: ENOXAPARIN SODIUM 40 MG/0.4 ML SYRINGE SQ SCH (15:53)
[2017-01-16] MEDS: CLINDAMYCIN INJ 900 MG in SODIUM CHLORIDE 0.9% INJ 100 ML IV SCH (17:53)
--- NOTE | 2017-01-16 23:42 | HHI.PR ---
Subjective Remarks Patient seen this morning. Says she is feeling all right. Denies any chest pain or shortness of breath. Unfortunately patient had T this morning. Will be getting nuclear perfusion scan tomorrow. Objective Vital Signs Date Time Temp Pulse Resp B/P (MAP) Pulse Ox O2 Delivery O2 Flow Rate FiO2 01/16/17 16:00 98.6 88 17 99/56 (70) 97 01/16/17 12:00 99.0 95 17 92/54 (67) 98 01/16/17 10:00 83 01/16/17 08:00 97.8 88 17 162/92 (115) 96 01/16/17 04:00 98.3 85 16 125/78 (94) 97 01/16/17 00:00 98.1 83 16 118/76 (90) 98 I/O 01/16/17 01/16/17 01/16/17 01/17/17 01/17/17 01/17/17 06:59 14:59 22:59 06:59 14:59 22:59 Intake Total 280 ml 476 ml Balance 280 ml 476 ml IV Total 280 ml 476 ml Result Diagram: 01/16/1712 01/16/17 0612 Objective Remarks GENERAL: She is sitting up in bed. Appears comfortable. Alert and oriented 3. SKIN: Warm and dry. Right buttock abscess with slight surrounding erythema, small amount of what appears to be subcutaneous pus versus fibrinous exudate, draining. Improving per patient report. HEAD: Normocephalic. EYES: No scleral icterus. No injection or drainage. NECK: Supple, trachea midline. No JVD. CARDIOVASCULAR: Regular rate and rhythm without murmurs, gallops, or rubs. RESPIRATORY: Breath sounds equal bilaterally. No accessory muscle use. GASTROINTESTINAL: Abdomen soft, non-tender, nondistended. MUSCULOSKELETAL: No cyanosis, or edema. BACK: Nontender without obvious deformity. No CVA tenderness. A/P Assessment and Plan ===01/16/17======== Nuclear perfusion scan delayed secondary to patient drinking tea this morning. Scheduled for tomorrow. Switch antibiotics to clindamycin. //Hyperglycemic, hyperosmolar state without coma, resolved. //Diabetes. Uncontrolled -No further hypoglycemia, however extremely high sugars. This could be secondary to holding insulin due to planned procedure. We'll continue diabetic diet and sliding scale. hemoglobin A1c is 11.5 //Acute renal failure superimposed on chronic kidney disease stage II - resolved. Hep-Lock IV //Stool/diarrhea with mild lactic acidosis -resolved Recent clindamycin use C. difficile test was negative Continue Lactinex //Chest pain, "cramping" in nature, resolved -Mild troponin elevation to 0.2, cardiology has been consulted for opinion and offered catheter, which patient declined. -Patient has agreed to do nuclear stress test, however was delayed secondary to drinking tea. //Right gluteal abscess, healing well, no further drainage, MRSA positive Hold clindamycin at this time due to possible C. difficile infection -01/16. Switch to clindamycin. //Hypothyroidism TSH is within normal limits, the patient reports noncompliance with her Synthroid. Synthroid 50 g daily has been resumed. //Social situation - daughter reports that the patient is homeless and living out of her car. Patient appears to have capacity at this time. We'll consult case management for assistance. Patient tells me that she lives in a house on [email or web address]. She does state that her sister told her yesterday that she seemed confused. The patient does endorse mild forgetfulness. Speech therapy EVALUATION reviewed. DVT prevention Continue Subcutaneous Lovenox Cameron Mendez MD Jan 16, 2017 23:42
[2017-01-17] VITALS: BP 107/59; PULSE 80; RESP 20; TEMP 96.8; O2SAT 98
[2017-01-17] MEDS: CLINDAMYCIN INJ 900 MG in SODIUM CHLORIDE 0.9% INJ 100 ML IV SCH ×2 (02:25→11:27)
[2017-01-17 04:00] VITALS: BP 139/85; PULSE 78; RESP 20; TEMP 98.4; O2SAT 99
[2017-01-17] MEDS: LEVOTHYROXINE SODIUM 50 MCG TAB PO SCH (05:55)
[2017-01-17] MEDS: INSULIN ASPART SUPPLEMENTAL SCALE SQ SCH ×3 (06:19→16:26)
[2017-01-17 08:00] VITALS: BP 143/82; PULSE 84; RESP 17; TEMP 98.5; O2SAT 95
[2017-01-17] MEDS: INSULIN ASPART 1,000 UNITS/10 ML VIAL SQ SCH ×2 (08:00→11:43)
[2017-01-17] MEDS: INSULIN DETEMIR 100 UNITS/ML VIAL SQ SCH (09:00)
[2017-01-17] MEDS ORDERED: REGADENOSON INJ 0.4 MG/5 ML SYR IV ONE (09:02)
[2017-01-17] MEDS: SODIUM CHLORIDE 0.9% FLUSH 10 ML FLUSH IV FLUSH SCH (09:10)
--- NOTE | 2017-01-17 10:59 | RADRPT ---
EXAM DATE/TIME: 01/17/2017 09:08 [facility] COMPARISON: No previous studies available for comparison. INDICATIONS : Chest and bilateral shoulder pain. Angina. Abnormal EKG. DOSE: 27.2 mCi Tc99m Myoview at stress. 8.5 mCi Tc99m Myoview at rest. 0.4 mg Lexiscan STRESS SYMPTOMS: Headache and throat tightness. EJECTION FRACTION: 67% MEDICAL HISTORY : Hypercholesterolemia. Hypertension. Diabetes mellitus type 2. SURGICAL HISTORY : Tonsillectomy. Hysterectomy. ENCOUNTER: Initial ACUITY: 2 days PAIN SCALE: 3/10 LOCATION: Bilateral chest TECHNIQUE: The patient underwent pharmacologic stress with infusion of prescribed dose. Continuous ECG tracing was monitored during stress. Gated SPECT imaging was performed after stress and conventional SPECT i maging was performed at rest. The examination was performed on a SPECT/CT scanner, both attenuation and non-corrected datasets were reviewed. FINDINGS: DISTRIBUTION: The maximum perfused segment at stress is in the anterolateral wall. PERFUSION STUDY: The pattern of perfusion at stress is within normal limits. GATED STUDY: There is intact wall motion and thickening without hypokinetic or dyskinetic segments. CONCLUSION: 1. No reversible perfusion defect to suggest stress-induced myocardial ischemia. RISK CATEGORY: Low (<1% Annual Mortality Rate) Jorge Fuller MD on January 17, 2017 at 10:56 Board Certified Radiologist. This report was verified electronically.
[2017-01-17 11:20] VITALS: PULSE 86
[2017-01-17 12:00] VITALS: BP 139/77; PULSE 78; RESP 18; TEMP 98.2; O2SAT 95
[2017-01-17] MEDS ORDERED: CLIN1CAP6 PO (14:23)
--- NOTE | 2017-01-17 14:24 | HHI.FF ---
Face to Face Verification Diagnosis: (1) Abscess (2) Acute renal failure superimposed on stage 2 chronic kidney disease (3) Abscess of buttock (4) Hyperglycemia due to type 2 diabetes mellitus Physical Therapy Order: Evaluate and Treat Home Health Nursing Order: Medical education Diabetic education Wound care and dressing changes Nursing assessment with vital signs I have seen patient Peggy Cobb on 01/17/17. My clinical findings support the need for the requested home health care services because: Deconditioned w/ increased weakness I certify that my clinical findings support that this patient is homebound because: Unsafe to leave home unassisted Cameron Mendez MD Jan 17, 2017 14:24
[2017-01-17] MEDS ORDERED: ASPI81TA11 PO (14:53)
--- NOTE | 2017-01-17 15:01 | HHI.PR ---
Subjective Remarks Patient seen this morning around 11:30 AM. Patient says she feels all right. Denies any chest pain or shortness of breath. Denies any nausea or vomiting. Objective Vital Signs Date Time Temp Pulse Resp B/P (MAP) Pulse Ox O2 Delivery O2 Flow Rate FiO2 01/17/17 12:00 98.2 78 18 139/77 (97) 95 01/17/17 11:20 86 01/17/17 08:00 98.5 84 17 143/82 (102) 95 01/17/17 04:00 98.4 78 20 139/85 (103) 99 01/17/17 00:00 96.8 80 20 107/59 (75) 98 01/16/17 21:12 81 01/16/17 20:00 98.1 89 20 128/78 (95) 97 01/16/17 16:00 98.6 88 17 99/56 (70) 97 I/O 01/16/17 01/16/17 01/16/17 01/17/17 01/17/17 01/17/17 07:00 15:00 23:00 07:00 15:00 23:00 Intake Total 280 ml 596 ml 170 ml Balance 280 ml 596 ml 170 ml Intake Oral 120 ml 60 ml IV Total 280 ml 476 ml 110 ml # Voids 2 2 # Bowel Movements 0 0 Result Diagram: 01/16/17 0601/16/17 0612 Objective Remarks GENERAL: She is sitting up in bed. Appears comfortable. Alert and oriented 3. SKIN: Warm and dry. Right buttock abscess lanced at bedside, however no pus. Appears to be fibrinous exudate. Discussed with patient the need for keeping pressure off the area. HEAD: Normocephalic. EYES: No scleral icterus. No injection or drainage. NECK: Supple, trachea midline. No JVD. CARDIOVASCULAR: Regular rate and rhythm without murmurs, gallops, or rubs. RESPIRATORY: Breath sounds equal bilaterally. No accessory muscle use. GASTROINTESTINAL: Abdomen soft, non-tender, nondistended. MUSCULOSKELETAL: No cyanosis, or edema. BACK: Nontender without obvious deformity. No CVA tenderness. A/P Assessment and Plan ====01/17/17======= Discussed with cardiology. Nuclear perfusion reviewed and negative. Bedside investigation of abscess without any pus. Continue clindamycin to complete treatment course. Hyperglycemia. Glucose elevated secondary infection on admission. Stressed compliance with insulin regimen and diet.. //Hyperglycemic, hyperosmolar state without coma, resolved. //Diabetes. Uncontrolled -No further hypoglycemia, however extremely high sugars. This could be secondary to holding insulin due to planned procedure. We'll continue diabetic diet and sliding scale. hemoglobin A1c is 11.5 -Stressed compliance with home regimen. Follow-up with primary care. //Acute renal failure superimposed on chronic kidney disease stage II - resolved. Hep-Lock IV //Stool/diarrhea with mild lactic acidosis -resolved Recent clindamycin use C. difficile test was negative Continue Lactinex //Chest pain, "cramping" in nature, resolved -Mild troponin elevation to 0.2, cardiology has been consulted for opinion and offered catheter, which patient declined. -Patient has agreed to do nuclear stress test, however was delayed secondary to drinking tea. -Nuclear stress low risk. Appreciate cardiology assistance. //Right gluteal abscess, healing well, no further drainage, MRSA positive Hold clindamycin at this time due to possible C. difficile infection -01/16. Switch to clindamycin. //Hypothyroidism TSH is within normal limits, the patient reports noncompliance with her Synthroid. Synthroid 50 g daily has been resumed. //Social situation - daughter reports that the patient is homeless and living out of her car. Patient appears to have capacity at this time. We'll consult case management for assistance. Patient tells me that she lives in a house on [address]. She does state that her sister told her yesterday that she seemed confused. The patient does endorse mild forgetfulness. Speech therapy EVALUATION reviewed. DVT prevention Continue Subcutaneous Lovenox Discharge Planning Discharge home. Follow with primary care. Cameron Mendez MD Jan 17, 2017 15:01
--- NOTE | 2017-01-17 15:05 | HHI.DS ---
Discharge Summary Admission Date Jan 13, 2017 at 14:10 Discharge Date: Jan 17, 2017 Admitting Diagnosis dehydration/hyperglycemia/hyponatremia/diarrhea (1) Hyponatremia ICD Code: E87.1 - Hypo-osmolality and hyponatremia Status: Resolved (2) Diarrhea ICD Code: R19.7 - Diarrhea, unspecified Status: Resolved (3) Lactic acid acidosis ICD Code: E87.2 - Acidosis Status: Resolved (4) Acute renal failure superimposed on stage 2 chronic kidney disease ICD Code: N17.9 - Acute kidney failure, unspecified; N18.2 - Chronic kidney disease, stage 2 (mild) Status: Resolved (5) Abscess of buttock ICD Code: L02.31 - Cutaneous abscess of buttock (6) MRSA infection ICD Code: A49.02 - Methicillin resistant Staphylococcus aureus infection, unspecified site Status: Acute (7) Elevated troponin I level ICD Code: R74.8 - Abnormal levels of other serum enzymes (8) Uncontrolled type 2 diabetes mellitus with hyperosmolar nonketotic hyperglycemia ICD Code: E11.00 - Type 2 diabetes mellitus with hyperosmolarity without nonketotic hyperglycemic-hyperosmolar coma ([facility]) Status: Resolved (9) Hyperglycemia due to type 2 diabetes mellitus ICD Code: E11.65 - Type 2 diabetes mellitus with hyperglycemia Status: Acute Procedures Incision and drainage of left buttock abscess on admission. Abscess with repeat incision, without any drainage obtained on 01/17. Brief History - From Admission Written by Brandyn Young, acting as scribe for Dr. Ryder on 01/13/17 at 14 :35. 76-year-old female with known history of diabetes, hypertension, hyperlipidemia, hypothyroidism, recent history of gluteal abscess who presented to hospital because she just didn't feel well. She cannot explain exactly her symptoms other than she does not feel good. However the patient was here in the ER 4 days ago and had incision and drainage done to a right gluteal abscess and was started on clindamycin. Patient states that she was doing well and the next day she felt fantastic. She states that every time that she took the medication, she got heartburn. She thought that she may have been either given the wrong medication or overmedicated. The patient started having weird sensation in which she described as a tense feeling in her upper body. She has some mild abdominal cramping this morning. She had 3 bowel movements today which were soft in nature. Her bowel movements were normal yesterday. The patient indicates that she did not take her insulin this morning and she went to [facility] and got a smoothie, after that she remembered about her insulin so she went home and took it, by that time she was not feeling that well so she came to the hospital for evaluation. Patient indicates that she has not checked her sugar because she has been out of test strips. After further assessment the patient she appears to be rather noncompliant with her medications. Patient had workup done in emergency department and found to have uncontrolled diabetes with anion gap, lactic acidosis, hyponatremia. For those reasons is recommended that the patient be observed in the hospital CBC/BMP: 01/16/17 0612 01/16/17 0612 Significant Findings Laboratory Tests Test 01/15/17 16:00 01/16/17 06:12 Vancomycin Level Trough 10.6 MCG/ML (5.0-10.0) Monocytes (%) (Auto) 8.8 % (0.0-8.0) Eosinophils (%) (Auto) 4.3 % (0.0-4.0) Random Glucose 227 MG/DL (74-106) Anion Gap 4 MEQ/L (5-15) Estimat Glomerular Filtration Rate 87 ML/MIN (>89) Imaging Last Impressions Myocardial Perfusion Scan Nuc Med 01/17/17 0000 Signed Impressions: Service Date/Time: December 09:08 - CONCLUSION: 1. No reversible perfusion defect to suggest stress-induced myocardial ischemia. RISK CATEGORY: Low (<1%% Annual Mortality Rate) Jorge Fuller MD Chest X-Ray 01/13/17 0000 Signed Impressions: Service Date/Time: Friday, January 13, 2017 12:25 - CONCLUSION: Cardiomegaly with slight interstitial prominence, could be interstitial edema. Nomi Vargas MD PE at Discharge GENERAL: Well-nourished, well-developed very pleasant female patient. SKIN: Warm and dry. HEAD: Normocephalic. EYES: No scleral icterus. No injection or drainage. No hordeolum noted. No orbital edema. NECK: Supple, trachea midline. No JVD or lymphadenopathy. CARDIOVASCULAR: Regular rate and rhythm without murmurs, gallops, or rubs. RESPIRATORY: Breath sounds equal bilaterally. No accessory muscle use. GASTROINTESTINAL: Abdomen soft, non-tender, nondistended. EXTREMITIES: No cyanosis, or edema. NEUROLOGICAL: Awake, alert, and oriented x 3. Non-focal. Normal insight and judgment. Capacity appears intact. Hospital Course Patient with sepsis, glucosamine 800s on admission. Improved with insulin, treatment of left buttock abscess. Left buttock As Well As in Size, with Cultures Positive for MRSA Sensitive to Clindamycin. Patient Was Started on Clindamycin with Improvement. As Patient did have an elevation in troponin up to 0.20 cardiology was consulted, recommended myocardial perfusion scan, which the patient initially refused, however later agreed to. This returned low risk. Patient was discharged home with clindamycin to complete treatment course. A1c 11.5. Stressed compliance with home insulin regimen. She will follow-up closely with primary care . ====01/17/17======= Discussed with cardiology. Nuclear perfusion reviewed and negative. Bedside investigation of abscess without any pus. Continue clindamycin to complete treatment course. Hyperglycemia. Glucose elevated secondary infection on admission. Stressed compliance with insulin regimen and diet.. //Hyperglycemic, hyperosmolar state without coma, resolved. //Diabetes. Uncontrolled -No further hypoglycemia, however extremely high sugars. This could be secondary to holding insulin due to planned procedure. We'll continue diabetic diet and sliding scale. hemoglobin A1c is 11.5 -Stressed compliance with home regimen. Follow-up with primary care. //Acute renal failure superimposed on chronic kidney disease stage II - resolved. Hep-Lock IV //Stool/diarrhea with mild lactic acidosis -resolved Recent clindamycin use C. difficile test was negative Continue Lactinex //Chest pain, "cramping" in nature, resolved -Mild troponin elevation to 0.2, cardiology has been consulted for opinion and offered catheter, which patient declined. -Patient has agreed to do nuclear stress test, however was delayed secondary to drinking tea. -Nuclear stress low risk. Appreciate cardiology assistance. //Right gluteal abscess, healing well, no further drainage, MRSA positive Hold clindamycin at this time due to possible C. difficile infection -01/16. Switch to clindamycin. //Hypothyroidism TSH is within normal limits, the patient reports noncompliance with her Synthroid. Synthroid 50 g daily has been resumed. //Social situation - daughter reports that the patient is homeless and living out of her car. Patient appears to have capacity at this time. We'll consult case management for assistance. Patient tells me that she lives in a house on [address] and [address]. She does state that her sister told her yesterday that she seemed confused. The patient does endorse mild forgetfulness. Speech therapy EVALUATION reviewed. DVT prevention Continue Subcutaneous Lovenox Pt Condition on Discharge: Good Discharge Disposition: Disch w/ Home Health Serv Discharge Time: > 30 minutes Discharge Instructions DIET: Follow Instructions for: Diabetic Diet Activities you can perform: Regular-No Restrictions Follow up Referrals: PCP Follow-up - 1 Week New Medications: Aspirin DR (Aspirin EC) 81 Mg Tabdr 81 MG PO DAILY for heart, #30 TAB 0 Refills Clindamycin (Clindamycin) 300 Mg Cap 600 MG PO Q8H for Infection for 10 Days, CAP 0 Refills Continued Medications: Insulin Aspart Inj (Novolog Inj) 1,000 Unit/10 Ml Vial 5 UNITS SQ TID for Blood Sugar Management, #1 INJECTION 0 Refills Insulin Glargine Inj (Lantus Inj) 1,000 Unit/10 Ml Vial 19 UNITS SQ DAILY for Blood Sugar Management, VIAL 0 Refills Levothyroxine (Levothyroxine) 50 Mcg Tab 50 MCG PO DAILY for Thyroid, #30 TAB 0 Refills Discontinued Medications: Clindamycin (Clindamycin) 300 Mg Cap 300 MG PO Q8HR for Infection for 10 Days, CAP 0 Refills Cameron Mendez MD Jan 17, 2017 15:05
[2017-01-17] MEDS ORDERED: INSULIN DETEMIR 100 UNITS/ML VIAL SQ SCH (21:00)
== END 2017-01-17 18:25 | disposition home or self-care (01) | DRG 638 ==
LOC: PHED 11:45 → PHEDA 13:56 → OBSVTOIN 14:10 → PH3B 15:14
PROVIDERS: ADMIT Internal Medicine; ATTEND Internal Medicine
DX: E11.00 Type 2 diabetes mellitus with hyperosmolarity without nonketotic hyperglycemic-hyperosmolar coma (NKHHC) (principal); L02.31 Cutaneous abscess of buttock; N17.9 Acute kidney failure, unspecified; B95.62 Methicillin resistant Staphylococcus aureus infection as the cause of diseases classified elsewhere; E11.22 Type 2 diabetes mellitus with diabetic chronic kidney disease; E87.1 Hypo-osmolality and hyponatremia; E86.0 Dehydration; Z79.4 Long term (current) use of insulin; I12.9 Hypertensive chronic kidney disease with stage 1 through stage 4 chronic kidney disease, or unspecified chronic kidney disease; N18.2 Chronic kidney disease, stage 2 (mild); Z91.14 Patient's other noncompliance with medication regimen; E78.5 Hyperlipidemia, unspecified; E03.9 Hypothyroidism, unspecified; R74.8 Abnormal levels of other serum enzymes
CPT/HCPCS: 71010; 78452; 80048; 80053; 80202; 81001; 82010; 82550; 82948; 83036; 83605; 84439; 84443; 84481; 84484; 85025; 86403; 87040; 87070; 87147; 87186; 87205; 87493; 93005; 93017; A9502; J1650; J1815; J2785; J3370; J7030; J7050

== ENCOUNTER 2018-04-24 19:44 | Inpatient (IN) ==
[2018-04-24] MEDS ORDERED: Sod Chloride 0.9% Inj 1,000 ML IV.SIG SCH (20:15)
[2018-04-24] MEDS ORDERED: Famotidine PF Inj 20 MG/2 ML Vial IV.PUSH ONE (20:15)
--- NOTE | 2018-04-24 20:16 | ED ---
HPI General Chief complaint: Nausea/Vomiting/Diarrhea Stated complaint: v/d/general pain/ high bgm/headache Time Seen by Provider: 04/24/18 19:55 History of Present Illness HPI Narrative: Patient is a 77-year-old female known insulin-dependent diabetic for the last few days is felt nauseous and shaky vomiting abdominal pain pale according to her daughter. Sometimes her sugars are very high sometimes they are low according to the daughter are bedside glucose monitor shows high . daughter says that she had given her soda to help elevate her sugar because she thought she was hypoglycemic, however they did not fingerstick her all day today. She takes 19 units of Lantus in the a.m. and then covers her self with 5 -10 units of regular insulin , during the day regardless of her intake. She says she did not eat anything today and the only thing she is had is a little bit of soda from the daughter. Denies diarrhea she has not taken anything to improve her symptoms she denies taking Pepto-Bismol or Imodium and she has not checked her fingerstick either. pt is living out of her car as per daughter , currently without a home. Pt labs return and pt is in DKA and also EKG has rate dependent depression in V4-6. Pt is very ill. Related Data Home Medications Medication Instructions Recorded Confirmed Novolog U-100 Insulin aspart 2 unit ONCE HS 04/24/18 04/25/18 insulin glargine [Lantus U-100 19 units SUBCUT DAILY 04/24/18 04/24/18 Insulin] levothyroxine 88 mcg PO DAILY 04/24/18 04/24/18 Previous Rx's Medication Instructions Recorded atorvastatin 40 mg PO HS 30 Days #30 tab 04/28/18 carvedilol [Coreg] 3.125 mg PO BID 30 Days #60 tab 04/28/18 pantoprazole 40 mg PO DAILY #30 tab 04/29/18 Allergies Allergy/AdvReac Type Severity Reaction Status Date / Time procaine Allergy Severe Anaphylaxis Verified 04/25/18 00:26 Review of Systems ROS: all other systems reviewed are negative PMFSH History History Provided By: Patient and Family Member Medical History Medical History Diabetes mellitus (Acute) History of hysterectomy (Acute) Hypothyroid (Acute) Surgical History Surgical History History of tonsillectomy (Acute) Family History Family History Other Family history non-contributory Social History Social History Substance History: No History of Abuse Second Hand Smoke Exposure: No Smoking Status: Never smoker How Often Do You Have a Drink Containing Alcohol: Never Recent Travel in [facility] within the Last 8 Weeks: No Recent Out of Country Travel within the Last 8 Weeks: No Exam Narrative Exam Narrative: GENERAL: Patient seems mildly shaky but no obvious tremor she seems slightly pale and apprehensive.. Bedside glucose fingerstick is high off of the meter SKIN: Warm and dry. Patient has vitiligo of her skin her back is hypopigmented areas diffuse HEAD: Atraumatic. Normocephalic. EYES: Pupils equal and round. No scleral icterus. No injection or drainage. ENT: No nasal bleeding or discharge. Mucous membranes pink and moist. NECK: Trachea midline. No JVD. CARDIOVASCULAR: Regular rate and rhythm. RESPIRATORY: No accessory muscle use. Clear to auscultation. Breath sounds equal bilaterally. GASTROINTESTINAL: Abdomen soft, non-tender, nondistended. Hepatic and splenic margins not palpable. MUSCULOSKELETAL: Extremities without clubbing, cyanosis, or edema. No obvious deformities. NEUROLOGICAL: Awake and alert. No obvious cranial nerve deficits. Motor grossly within normal limits. Five out of 5 muscle strength in the arms and legs. Normal speech. PSYCHIATRIC: Appropriate mood and affect; insight and judgment normal. Course Initial Documented Vital Signs Temperature 98.1 F 04/24/18 19:48 Pulse Rate 133 H 04/24/18 19:48 Respiratory Rate 16 04/24/18 19:48 Blood Pressure 125/68 04/24/18 19:48 Pulse Oximetry 99 04/24/18 19:48 Last Documented Vital Signs Temperature 97.4 F L 04/29/18 16:00 Pulse Rate 98 H 04/29/18 16:00 Respiratory Rate 20 04/29/18 16:00 Blood Pressure 130/70 04/29/18 16:00 Pulse Oximetry 98 04/29/18 16:00 Medical Decision Making MDM Narrative Medical decision making narrative: Patient is is in DKA and anion gap of 28. Her CO2 on her chemistry is 9. ABG is ordered for checking her pH she is started on insulin drip at 7 units an hour she is bolused 6 units to start and given 2 NS liters aspirin 1 6 2 grams nitroglycerin paste and Lopressor 2.5 mg to slow her heart rate. She has EKG that shows V4-6 depression. Possibly rate dependent admit to the ICU for DKA. Pt in the ER for 4 hrs I managed the patient critical care time 60 minutes of Insulin drip potassium management , IV hydration , BGM and adjustment of IV fluids and reassessment of her electrolytes and anion GAP CC time 60 mins Medical Screen Exam Complete: Yes Emergency Medical Condition: Yes Differential Diagnosis Differential Diagnosis: Frontal diagnosis includes hyperglycemia versus DKA and acidotic state versus cardiac ischemia versus UTI versus pneumonia versus other systemic illness sepsis Medical Records Medical records reviewed: Yes I reviewed the patient's medical records. Lab Data Lab results reviewed: Yes I reviewed the patient's lab results. Lab results narrative: critical acid state and anion gap IN DKA Result diagrams: 04/28/18 05:35 04/29/18 08:30 Lab Results 04/24/18 04/24/18 04/24/18 Range/Units 19:59 20:05 20:05 CBC w Diff Auto diff final WBC 17.4 H (4.0-11.0) th/mm3 RBC 3.81 L (4.00-5.30) mil/mm3 Hgb 11.5 L (11.6-15.3) gm/dL Hct 35.3 (35.0-46.0) % MCV 92.8 (80.0-100.0) fL MCH 30.2 (27.0-34.0) pg MCHC 32.5 (32.0-36.0) % RDW 13.3 (11.6-17.2) % Plt Count 233 (150-450) th/mm3 MPV 9.6 (7.0-11.0) fL Neut % (Auto) 87.3 H (16.0-70.0) % Lymph % (Auto) 2.9 L (9.0-44.0) % [place] % (Auto) 5.6 (0.0-8.0) % Eos % (Auto) 0.1 (0.0-4.0) % Baso % (Auto) 4.1 H (0.0-2.0) % Neut # (Auto) 15.2 H (1.8-7.7) th/mm3 Lymph # (Auto) 0.5 L (1.0-4.8) th/mm3 [place] # (Auto) 1.0 H (0.0-0.9) th/mm3 Eos # (Auto) 0.0 (0.0-0.4) th/mm3 Baso # (Auto) 0.7 H (0.0-0.2) th/mm3 WBC Differential . Differential Comment . PT (9.8-11.6) sec INR Ratio APTT (23.4-31.7) sec Puncture Site Patient Temperature VBG pH (7.360-7.400) VBG pCO2 (44-48) mmHG VBG pO2 (35-40) mmHG VBG HCO3 (22-26) mmol/L VBG O2 Saturation (70-76) % VBG O2 Content (9.0-17.0) Vol % VBG Base Excess (-2-2) mmol/L VBG Carboxyhemoglobin (0-4) % VBG Methemoglobin (0-2) % Hemoglobin (12.0-16.0) G/DL Inspired O2 % Critical Value Sodium 131 L (136-145) meq/L Potassium 4.4 (3.5-5.1) meq/L Chloride 93 L (98-107) meq/L Carbon Dioxide 9.8 L (21.0-32.0) meq/L Anion Gap 28 H (5-15) meq/L BUN 40 H (7-18) mg/dL Creatinine 2.00 H (0.50-1.00) mg/dL Estimated GFR 24 L (>89) mL/min POC Glucose Greater than 600 H* (68-110) mg/dl Random Glucose 611 H* (74-106) mg/dL Calcium 8.3 L (8.5-10.1) mg/dL Calcium Adj for Albumin (8.5-10.1) mg/dL Phosphorus (2.5-4.9) mg/dL Magnesium (1.5-2.5) mg/dL Total Bilirubin 0.5 (0.2-1.0) mg/dL AST 20 (15-37) U/L ALT 19 (10-53) U/L Alkaline Phosphatase 108 (45-117) U/L Troponin I (0.02-0.05) ng/mL Total Protein 6.3 L (6.4-8.2) g/dL Albumin 3.5 (3.4-5.0) g/dL Beta-Hydroxybutyric Acd 8.25 H (0.00-0.39) mmol/L TSH (0.358-3.740) uIU/mL Urine Color (Yellw/Straw) Urine Clarity (Clear) Urine pH (5.0-8.5) Ur Specific [place] (1.002-1.035) Urine Protein (Neg-Trace) mg/dL Urine Glucose (UA) (Negative) mg/dL Urine Ketones (Negative) mg/dL Urine Occult Blood (Negative) Urine Nitrate (Negative) Urine Bilirubin (Negative) Urine Urobilinogen (Less than 2) mg/dL Ur Leukocyte Esterase (Negative) Urine RBC (0-3) /hpf Urine WBC (0-5) /hpf Ur Squamous Epith Cells (0-5) /hpf Amorphous Sediment (None) /hpf Hyaline Casts (0-3) /lpf Urine Mucus (Occasional) /lpf Micro UA Comment Ur Microscopic Review Urine Culture Comments Nasal Screen MRSA (PCR) (Negative) Urine Opiates Screen (Neg) Ur Barbiturates Screen (Neg) Ur Amphetamines Screen (Neg) U Benzodiazepines Scrn (Neg) Urine Cocaine Screen (Neg) U Cannabinoids Screen (Neg) 04/24/18 04/24/18 04/24/18 Range/Units 20:05 20:05 20:48 CBC w Diff WBC (4.0-11.0) th/mm3 RBC (4.00-5.30) mil/mm3 Hgb (11.6-15.3) gm/dL Hct (35.0-46.0) % MCV (80.0-100.0) fL MCH (27.0-34.0) pg MCHC (32.0-36.0) % RDW (11.6-17.2) % Plt Count (150-450) th/mm3 MPV (7.0-11.0) fL Neut % (Auto) (16.0-70.0) % Lymph % (Auto) (9.0-44.0) % [place] % (Auto) (0.0-8.0) % Eos % (Auto) (0.0-4.0) % Baso % (Auto) (0.0-2.0) % Neut # (Auto) (1.8-7.7) th/mm3 Lymph # (Auto) (1.0-4.8) th/mm3 [place] # (Auto) (0.0-0.9) th/mm3 Eos # (Auto) (0.0-0.4) th/mm3 Baso # (Auto) (0.0-0.2) th/mm3 WBC Differential Differential Comment PT (9.8-11.6) sec INR Ratio APTT (23.4-31.7) sec Puncture Site Patient Temperature VBG pH (7.360-7.400) VBG pCO2 (44-48) mmHG VBG pO2 (35-40) mmHG VBG HCO3 (22-26) mmol/L VBG O2 Saturation (70-76) % VBG O2 Content (9.0-17.0) Vol % VBG Base Excess (-2-2) mmol/L VBG Carboxyhemoglobin (0-4) % VBG Methemoglobin (0-2) % Hemoglobin (12.0-16.0) G/DL Inspired O2 % Critical Value Sodium (136-145) meq/L Potassium (3.5-5.1) meq/L Chloride (98-107) meq/L Carbon Dioxide (21.0-32.0) meq/L Anion Gap (5-15) meq/L BUN (7-18) mg/dL Creatinine (0.50-1.00) mg/dL Estimated GFR (>89) mL/min POC Glucose 536 H* (68-110) mg/dl Random Glucose (74-106) mg/dL Calcium (8.5-10.1) mg/dL Calcium Adj for Albumin (8.5-10.1) mg/dL Phosphorus (2.5-4.9) mg/dL Magnesium (1.5-2.5) mg/dL Total Bilirubin (0.2-1.0) mg/dL AST (15-37) U/L ALT (10-53) U/L Alkaline Phosphatase (45-117) U/L Troponin I 0.10 H (0.02-0.05) ng/mL Total Protein (6.4-8.2) g/dL Albumin (3.4-5.0) g/dL Beta-Hydroxybutyric Acd (0.00-0.39) mmol/L TSH 1.260 (0.358-3.740) uIU/mL Urine Color (Yellw/Straw) Urine Clarity (Clear) Urine pH (5.0-8.5) Ur Specific [place] (1.002-1.035) Urine Protein (Neg-Trace) mg/dL Urine Glucose (UA) (Negative) mg/dL Urine Ketones (Negative) mg/dL Urine Occult Blood (Negative) Urine Nitrate (Negative) Urine Bilirubin (Negative) Urine Urobilinogen (Less than 2) mg/dL Ur Leukocyte Esterase (Negative) Urine RBC (0-3) /hpf Urine WBC (0-5) /hpf Ur Squamous Epith Cells (0-5) /hpf Amorphous Sediment (None) /hpf Hyaline Casts (0-3) /lpf Urine Mucus (Occasional) /lpf Micro UA Comment Ur Microscopic Review Urine Culture Comments Nasal Screen MRSA (PCR) (Negative) Urine Opiates Screen (Neg) Ur Barbiturates Screen (Neg) Ur Amphetamines Screen (Neg) U Benzodiazepines Scrn (Neg) Urine Cocaine Screen (Neg) U Cannabinoids Screen (Neg) 04/24/18 04/24/18 04/24/18 Range/Units 21:28 22:08 22:40 CBC w Diff WBC (4.0-11.0) th/mm3 RBC (4.00-5.30) mil/mm3 Hgb (11.6-15.3) gm/dL Hct (35.0-46.0) % MCV (80.0-100.0) fL MCH (27.0-34.0) pg MCHC (32.0-36.0) % RDW (11.6-17.2) % Plt Count (150-450) th/mm3 MPV (7.0-11.0) fL Neut % (Auto) (16.0-70.0) % Lymph % (Auto) (9.0-44.0) % [place] % (Auto) (0.0-8.0) % Eos % (Auto) (0.0-4.0) % Baso % (Auto) (0.0-2.0) % Neut # (Auto) (1.8-7.7) th/mm3 Lymph # (Auto) (1.0-4.8) th/mm3 [place] # (Auto) (0.0-0.9) th/mm3 Eos # (Auto) (0.0-0.4) th/mm3 Baso # (Auto) (0.0-0.2) th/mm3 WBC Differential Differential Comment PT (9.8-11.6) sec INR Ratio APTT (23.4-31.7) sec Puncture Site Larm Patient Temperature 98.6 VBG pH 7.21 L* (7.360-7.400) VBG pCO2 33 L (44-48) mmHG VBG pO2 46 H (35-40) mmHG VBG HCO3 13 L* (22-26) mmol/L VBG O2 Saturation 74 (70-76) % VBG O2 Content 10.2 (9.0-17.0) Vol % VBG Base Excess -13.3 L (-2-2) mmol/L VBG Carboxyhemoglobin 1.2 (0-4) % VBG Methemoglobin 1.3 (0-2) % Hemoglobin 9.9 L (12.0-16.0) G/DL Inspired O2 21 % Critical Value Yes Sodium (136-145) meq/L Potassium (3.5-5.1) meq/L Chloride (98-107) meq/L Carbon Dioxide (21.0-32.0) meq/L Anion Gap (5-15) meq/L BUN (7-18) mg/dL Creatinine (0.50-1.00) mg/dL Estimated GFR (>89) mL/min POC Glucose 492 H* (68-110) mg/dl Random Glucose (74-106) mg/dL Calcium (8.5-10.1) mg/dL Calcium Adj for Albumin (8.5-10.1) mg/dL Phosphorus (2.5-4.9) mg/dL Magnesium (1.5-2.5) mg/dL Total Bilirubin (0.2-1.0) mg/dL AST (15-37) U/L ALT (10-53) U/L Alkaline Phosphatase (45-117) U/L Troponin I (0.02-0.05) ng/mL Total Protein (6.4-8.2) g/dL Albumin (3.4-5.0) g/dL Beta-Hydroxybutyric Acd (0.00-0.39) mmol/L TSH (0.358-3.740) uIU/mL Urine Color Yellow (Yellw/Straw) Urine Clarity Clear (Clear) Urine pH 5.0 (5.0-8.5) Ur Specific [place] Greater/equal 1.030 (1.002-1.035) Urine Protein Negative (Neg-Trace) mg/dL Urine Glucose (UA) 1000 or greater H (Negative) mg/dL Urine Ketones 15 H (Negative) mg/dL Urine Occult Blood Trace (Negative) Urine Nitrate Negative (Negative) Urine Bilirubin Negative (Negative) Urine Urobilinogen 0.2 (Less than 2) mg/dL Ur Leukocyte Esterase Negative (Negative) Urine RBC 0-3 (0-3) /hpf Urine WBC 6-8 H (0-5) /hpf Ur Squamous Epith Cells 0-5 (0-5) /hpf Amorphous Sediment Few H (None) /hpf Hyaline Casts 11-30 H (0-3) /lpf Urine Mucus Few H (Occasional) /lpf Micro UA Comment Culture not ind Ur Microscopic Review Microscopic reviewed Urine Culture Comments Culture not ind Nasal Screen MRSA (PCR) (Negative) Urine Opiates Screen (Neg) Ur Barbiturates Screen (Neg) Ur Amphetamines Screen (Neg) U Benzodiazepines Scrn (Neg) Urine Cocaine Screen (Neg) U Cannabinoids Screen (Neg) 04/24/18 04/24/18 04/25/18 Range/Units 22:40 23:18 00:07 CBC w Diff WBC (4.0-11.0) th/mm3 RBC (4.00-5.30) mil/mm3 Hgb (11.6-15.3) gm/dL Hct (35.0-46.0) % MCV (80.0-100.0) fL MCH (27.0-34.0) pg MCHC (32.0-36.0) % RDW (11.6-17.2) % Plt Count (150-450) th/mm3 MPV (7.0-11.0) fL Neut % (Auto) (16.0-70.0) % Lymph % (Auto) (9.0-44.0) % [place] % (Auto) (0.0-8.0) % Eos % (Auto) (0.0-4.0) % Baso % (Auto) (0.0-2.0) % Neut # (Auto) (1.8-7.7) th/mm3 Lymph # (Auto) (1.0-4.8) th/mm3 [place] # (Auto) (0.0-0.9) th/mm3 Eos # (Auto) (0.0-0.4) th/mm3 Baso # (Auto) (0.0-0.2) th/mm3 WBC Differential Differential Comment PT (9.8-11.6) sec INR Ratio APTT (23.4-31.7) sec Puncture Site Patient Temperature VBG pH (7.360-7.400) VBG pCO2 (44-48) mmHG VBG pO2 (35-40) mmHG VBG HCO3 (22-26) mmol/L VBG O2 Saturation (70-76) % VBG O2 Content (9.0-17.0) Vol % VBG Base Excess (-2-2) mmol/L VBG Carboxyhemoglobin (0-4) % VBG Methemoglobin (0-2) % Hemoglobin (12.0-16.0) G/DL Inspired O2 % Critical Value Sodium (136-145) meq/L Potassium (3.5-5.1) meq/L Chloride (98-107) meq/L Carbon Dioxide (21.0-32.0) meq/L Anion Gap (5-15) meq/L BUN (7-18) mg/dL Creatinine (0.50-1.00) mg/dL Estimated GFR (>89) mL/min POC Glucose 385 H 324 H (68-110) mg/dl Random Glucose (74-106) mg/dL Calcium (8.5-10.1) mg/dL Calcium Adj for Albumin (8.5-10.1) mg/dL Phosphorus (2.5-4.9) mg/dL Magnesium (1.5-2.5) mg/dL Total Bilirubin (0.2-1.0) mg/dL AST (15-37) U/L ALT (10-53) U/L Alkaline Phosphatase (45-117) U/L Troponin I (0.02-0.05) ng/mL Total Protein (6.4-8.2) g/dL Albumin (3.4-5.0) g/dL Beta-Hydroxybutyric Acd (0.00-0.39) mmol/L TSH (0.358-3.740) uIU/mL Urine Color (Yellw/Straw) Urine Clarity (Clear) Urine pH (5.0-8.5) Ur Specific [place] (1.002-1.035) Urine Protein (Neg-Trace) mg/dL Urine Glucose (UA) (Negative) mg/dL Urine Ketones (Negative) mg/dL Urine Occult Blood (Negative) Urine Nitrate (Negative) Urine Bilirubin (Negative) Urine Urobilinogen (Less than 2) mg/dL Ur Leukocyte Esterase (Negative) Urine RBC (0-3) /hpf Urine WBC (0-5) /hpf Ur Squamous Epith Cells (0-5) /hpf Amorphous Sediment (None) /hpf Hyaline Casts (0-3) /lpf Urine Mucus (Occasional) /lpf Micro UA Comment Ur Microscopic Review Urine Culture Comments Nasal Screen MRSA (PCR) (Negative) Urine Opiates Screen Neg (Neg) Ur Barbiturates Screen Neg (Neg) Ur Amphetamines Screen Neg (Neg) U Benzodiazepines Scrn Neg (Neg) Urine Cocaine Screen Neg (Neg) U Cannabinoids Screen Neg (Neg) 04/25/18 04/25/18 04/25/18 Range/Units 00:55 01:55 01:55 CBC w Diff WBC (4.0-11.0) th/mm3 RBC (4.00-5.30) mil/mm3 Hgb (11.6-15.3) gm/dL Hct (35.0-46.0) % MCV (80.0-100.0) fL MCH (27.0-34.0) pg MCHC (32.0-36.0) % RDW (11.6-17.2) % Plt Count (150-450) th/mm3 MPV (7.0-11.0) fL Neut % (Auto) (16.0-70.0) % Lymph % (Auto) (9.0-44.0) % [place] % (Auto) (0.0-8.0) % Eos % (Auto) (0.0-4.0) % Baso % (Auto) (0.0-2.0) % Neut # (Auto) (1.8-7.7) th/mm3 Lymph # (Auto) (1.0-4.8) th/mm3 [place] # (Auto) (0.0-0.9) th/mm3 Eos # (Auto) (0.0-0.4) th/mm3 Baso # (Auto) (0.0-0.2) th/mm3 WBC Differential Differential Comment PT (9.8-11.6) sec INR Ratio APTT (23.4-31.7) sec Puncture Site Patient Temperature VBG pH (7.360-7.400) VBG pCO2 (44-48) mmHG VBG pO2 (35-40) mmHG VBG HCO3 (22-26) mmol/L VBG O2 Saturation (70-76) % VBG O2 Content (9.0-17.0) Vol % VBG Base Excess (-2-2) mmol/L VBG Carboxyhemoglobin (0-4) % VBG Methemoglobin (0-2) % Hemoglobin (12.0-16.0) G/DL Inspired O2 % Critical Value Sodium 139 (136-145) meq/L Potassium 4.1 (3.5-5.1) meq/L Chloride 109 H D (98-107) meq/L Carbon Dioxide 22.0 D (21.0-32.0) meq/L Anion Gap 8 (5-15) meq/L BUN 40 H (7-18) mg/dL Creatinine 1.50 H (0.50-1.00) mg/dL Estimated GFR 33 L (>89) mL/min POC Glucose 270 H 232 H (68-110) mg/dl Random Glucose 224 H D (74-106) mg/dL Calcium 7.2 L* D (8.5-10.1) mg/dL Calcium Adj for Albumin 8.4 L (8.5-10.1) mg/dL Phosphorus 1.2 L (2.5-4.9) mg/dL Magnesium 1.6 (1.5-2.5) mg/dL Total Bilirubin (0.2-1.0) mg/dL AST (15-37) U/L ALT (10-53) U/L Alkaline Phosphatase (45-117) U/L Troponin I 1.39 H* D (0.02-0.05) ng/mL Total Protein (6.4-8.2) g/dL Albumin 2.5 L D (3.4-5.0) g/dL Beta-Hydroxybutyric Acd (0.00-0.39) mmol/L TSH (0.358-3.740) uIU/mL Urine Color (Yellw/Straw) Urine Clarity (Clear) Urine pH (5.0-8.5) Ur Specific [place] (1.002-1.035) Urine Protein (Neg-Trace) mg/dL Urine Glucose (UA) (Negative) mg/dL Urine Ketones (Negative) mg/dL Urine Occult Blood (Negative) Urine Nitrate (Negative) Urine Bilirubin (Negative) Urine Urobilinogen (Less than 2) mg/dL Ur Leukocyte Esterase (Negative) Urine RBC (0-3) /hpf Urine WBC (0-5) /hpf Ur Squamous Epith Cells (0-5) /hpf Amorphous Sediment (None) /hpf Hyaline Casts (0-3) /lpf Urine Mucus (Occasional) /lpf Micro UA Comment Ur Microscopic Review Urine Culture Comments Nasal Screen MRSA (PCR) (Negative) Urine Opiates Screen (Neg) Ur Barbiturates Screen (Neg) Ur Amphetamines Screen (Neg) U Benzodiazepines Scrn (Neg) Urine Cocaine Screen (Neg) U Cannabinoids Screen (Neg) 04/25/18 04/25/18 04/25/18 Range/Units 03:07 04:00 04:10 CBC w Diff WBC (4.0-11.0) th/mm3 RBC (4.00-5.30) mil/mm3 Hgb (11.6-15.3) gm/dL Hct (35.0-46.0) % MCV (80.0-100.0) fL MCH (27.0-34.0) pg MCHC (32.0-36.0) % RDW (11.6-17.2) % Plt Count (150-450) th/mm3 MPV (7.0-11.0) fL Neut % (Auto) (16.0-70.0) % Lymph % (Auto) (9.0-44.0) % [place] % (Auto) (0.0-8.0) % Eos % (Auto) (0.0-4.0) % Baso % (Auto) (0.0-2.0) % Neut # (Auto) (1.8-7.7) th/mm3 Lymph # (Auto) (1.0-4.8) th/mm3 [place] # (Auto) (0.0-0.9) th/mm3 Eos # (Auto) (0.0-0.4) th/mm3 Baso # (Auto) (0.0-0.2) th/mm3 WBC Differential Differential Comment PT 11.1 (9.8-11.6) sec INR 1.1 Ratio APTT 20.5 L (23.4-31.7) sec Puncture Site Patient Temperature VBG pH (7.360-7.400) VBG pCO2 (44-48) mmHG VBG pO2 (35-40) mmHG VBG HCO3 (22-26) mmol/L VBG O2 Saturation (70-76) % VBG O2 Content (9.0-17.0) Vol % VBG Base Excess (-2-2) mmol/L VBG Carboxyhemoglobin (0-4) % VBG Methemoglobin (0-2) % Hemoglobin (12.0-16.0) G/DL Inspired O2 % Critical Value Sodium (136-145) meq/L Potassium (3.5-5.1) meq/L Chloride (98-107) meq/L Carbon Dioxide (21.0-32.0) meq/L Anion Gap (5-15) meq/L BUN (7-18) mg/dL Creatinine (0.50-1.00) mg/dL Estimated GFR (>89) mL/min POC Glucose 192 H 169 H (68-110) mg/dl Random Glucose (74-106) mg/dL Calcium (8.5-10.1) mg/dL Calcium Adj for Albumin (8.5-10.1) mg/dL Phosphorus (2.5-4.9) mg/dL Magnesium (1.5-2.5) mg/dL Total Bilirubin (0.2-1.0) mg/dL AST (15-37) U/L ALT (10-53) U/L Alkaline Phosphatase (45-117) U/L Troponin I (0.02-0.05) ng/mL Total Protein (6.4-8.2) g/dL Albumin (3.4-5.0) g/dL Beta-Hydroxybutyric Acd (0.00-0.39) mmol/L TSH (0.358-3.740) uIU/mL Urine Color (Yellw/Straw) Urine Clarity (Clear) Urine pH (5.0-8.5) Ur Specific [place] (1.002-1.035) Urine Protein (Neg-Trace) mg/dL Urine Glucose (UA) (Negative) mg/dL Urine Ketones (Negative) mg/dL Urine Occult Blood (Negative) Urine Nitrate (Negative) Urine Bilirubin (Negative) Urine Urobilinogen (Less than 2) mg/dL Ur Leukocyte Esterase (Negative) Urine RBC (0-3) /hpf Urine WBC (0-5) /hpf Ur Squamous Epith Cells (0-5) /hpf Amorphous Sediment (None) /hpf Hyaline Casts (0-3) /lpf Urine Mucus (Occasional) /lpf Micro UA Comment Ur Microscopic Review Urine Culture Comments Nasal Screen MRSA (PCR) (Negative) Urine Opiates Screen (Neg) Ur Barbiturates Screen (Neg) Ur Amphetamines Screen (Neg) U Benzodiazepines Scrn (Neg) Urine Cocaine Screen (Neg) U Cannabinoids Screen (Neg) 04/25/18 04/25/18 04/25/18 Range/Units 05:10 05:40 06:00 CBC w Diff WBC (4.0-11.0) th/mm3 RBC (4.00-5.30) mil/mm3 Hgb (11.6-15.3) gm/dL Hct (35.0-46.0) % MCV (80.0-100.0) fL MCH (27.0-34.0) pg MCHC (32.0-36.0) % RDW (11.6-17.2) % Plt Count (150-450) th/mm3 MPV (7.0-11.0) fL Neut % (Auto) (16.0-70.0) % Lymph % (Auto) (9.0-44.0) % [place] % (Auto) (0.0-8.0) % Eos % (Auto) (0.0-4.0) % Baso % (Auto) (0.0-2.0) % Neut # (Auto) (1.8-7.7) th/mm3 Lymph # (Auto) (1.0-4.8) th/mm3 [place] # (Auto) (0.0-0.9) th/mm3 Eos # (Auto) (0.0-0.4) th/mm3 Baso # (Auto) (0.0-0.2) th/mm3 WBC Differential Differential Comment PT (9.8-11.6) sec INR Ratio APTT (23.4-31.7) sec Puncture Site Patient Temperature VBG pH (7.360-7.400) VBG pCO2 (44-48) mmHG VBG pO2 (35-40) mmHG VBG HCO3 (22-26) mmol/L VBG O2 Saturation (70-76) % VBG O2 Content (9.0-17.0) Vol % VBG Base Excess (-2-2) mmol/L VBG Carboxyhemoglobin (0-4) % VBG Methemoglobin (0-2) % Hemoglobin (12.0-16.0) G/DL Inspired O2 % Critical Value Sodium (136-145) meq/L Potassium (3.5-5.1) meq/L Chloride (98-107) meq/L Carbon Dioxide (21.0-32.0) meq/L Anion Gap (5-15) meq/L BUN (7-18) mg/dL Creatinine (0.50-1.00) mg/dL Estimated GFR (>89) mL/min POC Glucose 135 H 133 H (68-110) mg/dl Random Glucose (74-106) mg/dL Calcium (8.5-10.1) mg/dL Calcium Adj for Albumin (8.5-10.1) mg/dL Phosphorus (2.5-4.9) mg/dL Magnesium (1.5-2.5) mg/dL Total Bilirubin (0.2-1.0) mg/dL AST (15-37) U/L ALT (10-53) U/L Alkaline Phosphatase (45-117) U/L Troponin I 2.42 H* D (0.02-0.05) ng/mL Total Protein (6.4-8.2) g/dL Albumin (3.4-5.0) g/dL Beta-Hydroxybutyric Acd (0.00-0.39) mmol/L TSH (0.358-3.740) uIU/mL Urine Color (Yellw/Straw) Urine Clarity (Clear) Urine pH (5.0-8.5) Ur Specific [place] (1.002-1.035) Urine Protein (Neg-Trace) mg/dL Urine Glucose (UA) (Negative) mg/dL Urine Ketones (Negative) mg/dL Urine Occult Blood (Negative) Urine Nitrate (Negative) Urine Bilirubin (Negative) Urine Urobilinogen (Less than 2) mg/dL Ur Leukocyte Esterase (Negative) Urine RBC (0-3) /hpf Urine WBC (0-5) /hpf Ur Squamous Epith Cells (0-5) /hpf Amorphous Sediment (None) /hpf Hyaline Casts (0-3) /lpf Urine Mucus (Occasional) /lpf Micro UA Comment Ur Microscopic Review Urine Culture Comments Nasal Screen MRSA (PCR) (Negative) Urine Opiates Screen (Neg) Ur Barbiturates Screen (Neg) Ur Amphetamines Screen (Neg) U Benzodiazepines Scrn (Neg) Urine Cocaine Screen (Neg) U Cannabinoids Screen (Neg) 04/25/18 04/25/18 04/25/18 Range/Units 06:19 07:37 09:07 CBC w Diff WBC (4.0-11.0) th/mm3 RBC (4.00-5.30) mil/mm3 Hgb (11.6-15.3) gm/dL Hct (35.0-46.0) % MCV (80.0-100.0) fL MCH (27.0-34.0) pg MCHC (32.0-36.0) % RDW (11.6-17.2) % Plt Count (150-450) th/mm3 MPV (7.0-11.0) fL Neut % (Auto) (16.0-70.0) % Lymph % (Auto) (9.0-44.0) % [place] % (Auto) (0.0-8.0) % Eos % (Auto) (0.0-4.0) % Baso % (Auto) (0.0-2.0) % Neut # (Auto) (1.8-7.7) th/mm3 Lymph # (Auto) (1.0-4.8) th/mm3 [place] # (Auto) (0.0-0.9) th/mm3 Eos # (Auto) (0.0-0.4) th/mm3 Baso # (Auto) (0.0-0.2) th/mm3 WBC Differential Differential Comment PT (9.8-11.6) sec INR Ratio APTT (23.4-31.7) sec Puncture Site Patient Temperature VBG pH (7.360-7.400) VBG pCO2 (44-48) mmHG VBG pO2 (35-40) mmHG VBG HCO3 (22-26) mmol/L VBG O2 Saturation (70-76) % VBG O2 Content (9.0-17.0) Vol % VBG Base Excess (-2-2) mmol/L VBG Carboxyhemoglobin (0-4) % VBG Methemoglobin (0-2) % Hemoglobin (12.0-16.0) G/DL Inspired O2 % Critical Value Sodium (136-145) meq/L Potassium (3.5-5.1) meq/L Chloride (98-107) meq/L Carbon Dioxide (21.0-32.0) meq/L Anion Gap (5-15) meq/L BUN (7-18) mg/dL Creatinine (0.50-1.00) mg/dL Estimated GFR (>89) mL/min POC Glucose 114 H 152 H (68-110) mg/dl Random Glucose (74-106) mg/dL Calcium (8.5-10.1) mg/dL Calcium Adj for Albumin (8.5-10.1) mg/dL Phosphorus (2.5-4.9) mg/dL Magnesium (1.5-2.5) mg/dL Total Bilirubin (0.2-1.0) mg/dL AST (15-37) U/L ALT (10-53) U/L Alkaline Phosphatase (45-117) U/L Troponin I (0.02-0.05) ng/mL Total Protein (6.4-8.2) g/dL Albumin (3.4-5.0) g/dL Beta-Hydroxybutyric Acd (0.00-0.39) mmol/L TSH (0.358-3.740) uIU/mL Urine Color (Yellw/Straw) Urine Clarity (Clear) Urine pH (5.0-8.5) Ur Specific [place] (1.002-1.035) Urine Protein (Neg-Trace) mg/dL Urine Glucose (UA) (Negative) mg/dL Urine Ketones (Negative) mg/dL Urine Occult Blood (Negative) Urine Nitrate (Negative) Urine Bilirubin (Negative) Urine Urobilinogen (Less than 2) mg/dL Ur Leukocyte Esterase (Negative) Urine RBC (0-3) /hpf Urine WBC (0-5) /hpf Ur Squamous Epith Cells (0-5) /hpf Amorphous Sediment (None) /hpf Hyaline Casts (0-3) /lpf Urine Mucus (Occasional) /lpf Micro UA Comment Ur Microscopic Review Urine Culture Comments Nasal Screen MRSA (PCR) Not detected (Negative) Urine Opiates Screen (Neg) Ur Barbiturates Screen (Neg) Ur Amphetamines Screen (Neg) U Benzodiazepines Scrn (Neg) Urine Cocaine Screen (Neg) U Cannabinoids Screen (Neg) 04/25/18 04/25/18 04/25/18 Range/Units 10:30 10:30 11:52 CBC w Diff WBC (4.0-11.0) th/mm3 RBC (4.00-5.30) mil/mm3 Hgb (11.6-15.3) gm/dL Hct (35.0-46.0) % MCV (80.0-100.0) fL MCH (27.0-34.0) pg MCHC (32.0-36.0) % RDW (11.6-17.2) % Plt Count (150-450) th/mm3 MPV (7.0-11.0) fL Neut % (Auto) (16.0-70.0) % Lymph % (Auto) (9.0-44.0) % [place] % (Auto) (0.0-8.0) % Eos % (Auto) (0.0-4.0) % Baso % (Auto) (0.0-2.0) % Neut # (Auto) (1.8-7.7) th/mm3 Lymph # (Auto) (1.0-4.8) th/mm3 [place] # (Auto) (0.0-0.9) th/mm3 Eos # (Auto) (0.0-0.4) th/mm3 Baso # (Auto) (0.0-0.2) th/mm3 WBC Differential Differential Comment PT (9.8-11.6) sec INR Ratio APTT 58.1 H D (23.4-31.7) sec Puncture Site Patient Temperature VBG pH (7.360-7.400) VBG pCO2 (44-48) mmHG VBG pO2 (35-40) mmHG VBG HCO3 (22-26) mmol/L VBG O2 Saturation (70-76) % VBG O2 Content (9.0-17.0) Vol % VBG Base Excess (-2-2) mmol/L VBG Carboxyhemoglobin (0-4) % VBG Methemoglobin (0-2) % Hemoglobin (12.0-16.0) G/DL Inspired O2 % Critical Value Sodium (136-145) meq/L Potassium (3.5-5.1) meq/L Chloride (98-107) meq/L Carbon Dioxide (21.0-32.0) meq/L Anion Gap (5-15) meq/L BUN (7-18) mg/dL Creatinine (0.50-1.00) mg/dL Estimated GFR (>89) mL/min POC Glucose 118 H (68-110) mg/dl Random Glucose (74-106) mg/dL Calcium (8.5-10.1) mg/dL Calcium Adj for Albumin (8.5-10.1) mg/dL Phosphorus (2.5-4.9) mg/dL Magnesium (1.5-2.5) mg/dL Total Bilirubin (0.2-1.0) mg/dL AST (15-37) U/L ALT (10-53) U/L Alkaline Phosphatase (45-117) U/L Troponin I 2.65 H* D (0.02-0.05) ng/mL Total Protein (6.4-8.2) g/dL Albumin (3.4-5.0) g/dL Beta-Hydroxybutyric Acd (0.00-0.39) mmol/L TSH (0.358-3.740) uIU/mL Urine Color (Yellw/Straw) Urine Clarity (Clear) Urine pH (5.0-8.5) Ur Specific [place] (1.002-1.035) Urine Protein (Neg-Trace) mg/dL Urine Glucose (UA) (Negative) mg/dL Urine Ketones (Negative) mg/dL Urine Occult Blood (Negative) Urine Nitrate (Negative) Urine Bilirubin (Negative) Urine Urobilinogen (Less than 2) mg/dL Ur Leukocyte Esterase (Negative) Urine RBC (0-3) /hpf Urine WBC (0-5) /hpf Ur Squamous Epith Cells (0-5) /hpf Amorphous Sediment (None) /hpf Hyaline Casts (0-3) /lpf Urine Mucus (Occasional) /lpf Micro UA Comment Ur Microscopic Review Urine Culture Comments Nasal Screen MRSA (PCR) (Negative) Urine Opiates Screen (Neg) Ur Barbiturates Screen (Neg) Ur Amphetamines Screen (Neg) U Benzodiazepines Scrn (Neg) Urine Cocaine Screen (Neg) U Cannabinoids Screen (Neg) 04/25/18 04/25/18 04/25/18 Range/Units 16:49 17:05 17:05 CBC w Diff WBC (4.0-11.0) th/mm3 RBC (4.00-5.30) mil/mm3 Hgb (11.6-15.3) gm/dL Hct (35.0-46.0) % MCV (80.0-100.0) fL MCH (27.0-34.0) pg MCHC (32.0-36.0) % RDW (11.6-17.2) % Plt Count (150-450) th/mm3 MPV (7.0-11.0) fL Neut % (Auto) (16.0-70.0) % Lymph % (Auto) (9.0-44.0) % [place] % (Auto) (0.0-8.0) % Eos % (Auto) (0.0-4.0) % Baso % (Auto) (0.0-2.0) % Neut # (Auto) (1.8-7.7) th/mm3 Lymph # (Auto) (1.0-4.8) th/mm3 [place] # (Auto) (0.0-0.9) th/mm3 Eos # (Auto) (0.0-0.4) th/mm3 Baso # (Auto) (0.0-0.2) th/mm3 WBC Differential Differential Comment PT (9.8-11.6) sec INR Ratio APTT (23.4-31.7) sec Puncture Site Patient Temperature VBG pH (7.360-7.400) VBG pCO2 (44-48) mmHG VBG pO2 (35-40) mmHG VBG HCO3 (22-26) mmol/L VBG O2 Saturation (70-76) % VBG O2 Content (9.0-17.0) Vol % VBG Base Excess (-2-2) mmol/L VBG Carboxyhemoglobin (0-4) % VBG Methemoglobin (0-2) % Hemoglobin (12.0-16.0) G/DL Inspired O2 % Critical Value Sodium 141 (136-145) meq/L Potassium 4.0 (3.5-5.1) meq/L Chloride 111 H (98-107) meq/L Carbon Dioxide 21.9 (21.0-32.0) meq/L Anion Gap 8 (5-15) meq/L BUN 31 H (7-18) mg/dL Creatinine 1.10 H (0.50-1.00) mg/dL Estimated GFR 48 L (>89) mL/min POC Glucose 265 H (68-110) mg/dl Random Glucose 218 H (74-106) mg/dL Calcium 7.4 L* (8.5-10.1) mg/dL Calcium Adj for Albumin 8.9 (8.5-10.1) mg/dL Phosphorus 2.5 D (2.5-4.9) mg/dL Magnesium 2.0 (1.5-2.5) mg/dL Total Bilirubin 0.2 (0.2-1.0) mg/dL AST 21 (15-37) U/L ALT 13 (10-53) U/L Alkaline Phosphatase 72 (45-117) U/L Troponin I 1.94 H* D (0.02-0.05) ng/mL Total Protein 4.5 L D (6.4-8.2) g/dL Albumin 2.3 L (3.4-5.0) g/dL Beta-Hydroxybutyric Acd (0.00-0.39) mmol/L TSH (0.358-3.740) uIU/mL Urine Color (Yellw/Straw) Urine Clarity (Clear) Urine pH (5.0-8.5) Ur Specific [place] (1.002-1.035) Urine Protein (Neg-Trace) mg/dL Urine Glucose (UA) (Negative) mg/dL Urine Ketones (Negative) mg/dL Urine Occult Blood (Negative) Urine Nitrate (Negative) Urine Bilirubin (Negative) Urine Urobilinogen (Less than 2) mg/dL Ur Leukocyte Esterase (Negative) Urine RBC (0-3) /hpf Urine WBC (0-5) /hpf Ur Squamous Epith Cells (0-5) /hpf Amorphous Sediment (None) /hpf Hyaline Casts (0-3) /lpf Urine Mucus (Occasional) /lpf Micro UA Comment Ur Microscopic Review Urine Culture Comments Nasal Screen MRSA (PCR) (Negative) Urine Opiates Screen (Neg) Ur Barbiturates Screen (Neg) Ur Amphetamines Screen (Neg) U Benzodiazepines Scrn (Neg) Urine Cocaine Screen (Neg) U Cannabinoids Screen (Neg) 04/25/18 04/26/18 04/26/18 Range/Units 21:29 05:50 05:50 CBC w Diff WBC 9.0 (4.0-11.0) th/mm3 RBC 3.49 L (4.00-5.30) mil/mm3 Hgb 10.4 L (11.6-15.3) gm/dL Hct 31.3 L (35.0-46.0) % MCV 89.9 (80.0-100.0) fL MCH 29.9 (27.0-34.0) pg MCHC 33.2 (32.0-36.0) % RDW 12.8 (11.6-17.2) % Plt Count 177 (150-450) th/mm3 MPV 8.2 (7.0-11.0) fL Neut % (Auto) (16.0-70.0) % Lymph % (Auto) (9.0-44.0) % [place] % (Auto) (0.0-8.0) % Eos % (Auto) (0.0-4.0) % Baso % (Auto) (0.0-2.0) % Neut # (Auto) (1.8-7.7) th/mm3 Lymph # (Auto) (1.0-4.8) th/mm3 [place] # (Auto) (0.0-0.9) th/mm3 Eos # (Auto) (0.0-0.4) th/mm3 Baso # (Auto) (0.0-0.2) th/mm3 WBC Differential Differential Comment PT (9.8-11.6) sec INR Ratio APTT (23.4-31.7) sec Puncture Site Patient Temperature VBG pH (7.360-7.400) VBG pCO2 (44-48) mmHG VBG pO2 (35-40) mmHG VBG HCO3 (22-26) mmol/L VBG O2 Saturation (70-76) % VBG O2 Content (9.0-17.0) Vol % VBG Base Excess (-2-2) mmol/L VBG Carboxyhemoglobin (0-4) % VBG Methemoglobin (0-2) % Hemoglobin (12.0-16.0) G/DL Inspired O2 % Critical Value Sodium 145 (136-145) meq/L Potassium 3.8 (3.5-5.1) meq/L Chloride 114 H (98-107) meq/L Carbon Dioxide 25.2 (21.0-32.0) meq/L Anion Gap 6 (5-15) meq/L BUN 26 H (7-18) mg/dL Creatinine 0.88 (0.50-1.00) mg/dL Estimated GFR 62 L (>89) mL/min POC Glucose 86 (68-110) mg/dl Random Glucose 88 D (74-106) mg/dL Calcium 7.8 L (8.5-10.1) mg/dL Calcium Adj for Albumin (8.5-10.1) mg/dL Phosphorus 2.8 (2.5-4.9) mg/dL Magnesium 2.0 (1.5-2.5) mg/dL Total Bilirubin (0.2-1.0) mg/dL AST (15-37) U/L ALT (10-53) U/L Alkaline Phosphatase (45-117) U/L Troponin I (0.02-0.05) ng/mL Total Protein (6.4-8.2) g/dL Albumin (3.4-5.0) g/dL Beta-Hydroxybutyric Acd (0.00-0.39) mmol/L TSH (0.358-3.740) uIU/mL Urine Color (Yellw/Straw) Urine Clarity (Clear) Urine pH (5.0-8.5) Ur Specific [place] (1.002-1.035) Urine Protein (Neg-Trace) mg/dL Urine Glucose (UA) (Negative) mg/dL Urine Ketones (Negative) mg/dL Urine Occult Blood (Negative) Urine Nitrate (Negative) Urine Bilirubin (Negative) Urine Urobilinogen (Less than 2) mg/dL Ur Leukocyte Esterase (Negative) Urine RBC (0-3) /hpf Urine WBC (0-5) /hpf Ur Squamous Epith Cells (0-5) /hpf Amorphous Sediment (None) /hpf Hyaline Casts (0-3) /lpf Urine Mucus (Occasional) /lpf Micro UA Comment Ur Microscopic Review Urine Culture Comments Nasal Screen MRSA (PCR) (Negative) Urine Opiates Screen (Neg) Ur Barbiturates Screen (Neg) Ur Amphetamines Screen (Neg) U Benzodiazepines Scrn (Neg) Urine Cocaine Screen (Neg) U Cannabinoids Screen (Neg) 04/26/18 04/26/18 04/26/18 Range/Units 07:51 12:03 17:12 CBC w Diff WBC (4.0-11.0) th/mm3 RBC (4.00-5.30) mil/mm3 Hgb (11.6-15.3) gm/dL Hct (35.0-46.0) % MCV (80.0-100.0) fL MCH (27.0-34.0) pg MCHC (32.0-36.0) % RDW (11.6-17.2) % Plt Count (150-450) th/mm3 MPV (7.0-11.0) fL Neut % (Auto) (16.0-70.0) % Lymph % (Auto) (9.0-44.0) % [place] % (Auto) (0.0-8.0) % Eos % (Auto) (0.0-4.0) % Baso % (Auto) (0.0-2.0) % Neut # (Auto) (1.8-7.7) th/mm3 Lymph # (Auto) (1.0-4.8) th/mm3 [place] # (Auto) (0.0-0.9) th/mm3 Eos # (Auto) (0.0-0.4) th/mm3 Baso # (Auto) (0.0-0.2) th/mm3 WBC Differential Differential Comment PT (9.8-11.6) sec INR Ratio APTT (23.4-31.7) sec Puncture Site Patient Temperature VBG pH (7.360-7.400) VBG pCO2 (44-48) mmHG VBG pO2 (35-40) mmHG VBG HCO3 (22-26) mmol/L VBG O2 Saturation (70-76) % VBG O2 Content (9.0-17.0) Vol % VBG Base Excess (-2-2) mmol/L VBG Carboxyhemoglobin (0-4) % VBG Methemoglobin (0-2) % Hemoglobin (12.0-16.0) G/DL Inspired O2 % Critical Value Sodium (136-145) meq/L Potassium (3.5-5.1) meq/L Chloride (98-107) meq/L Carbon Dioxide (21.0-32.0) meq/L Anion Gap (5-15) meq/L BUN (7-18) mg/dL Creatinine (0.50-1.00) mg/dL Estimated GFR (>89) mL/min POC Glucose 131 H 228 H 153 H (68-110) mg/dl Random Glucose (74-106) mg/dL Calcium (8.5-10.1) mg/dL Calcium Adj for Albumin (8.5-10.1) mg/dL Phosphorus (2.5-4.9) mg/dL Magnesium (1.5-2.5) mg/dL Total Bilirubin (0.2-1.0) mg/dL AST (15-37) U/L ALT (10-53) U/L Alkaline Phosphatase (45-117) U/L Troponin I (0.02-0.05) ng/mL Total Protein (6.4-8.2) g/dL Albumin (3.4-5.0) g/dL Beta-Hydroxybutyric Acd (0.00-0.39) mmol/L TSH (0.358-3.740) uIU/mL Urine Color (Yellw/Straw) Urine Clarity (Clear) Urine pH (5.0-8.5) Ur Specific [place] (1.002-1.035) Urine Protein (Neg-Trace) mg/dL Urine Glucose (UA) (Negative) mg/dL Urine Ketones (Negative) mg/dL Urine Occult Blood (Negative) Urine Nitrate (Negative) Urine Bilirubin (Negative) Urine Urobilinogen (Less than 2) mg/dL Ur Leukocyte Esterase (Negative) Urine RBC (0-3) /hpf Urine WBC (0-5) /hpf Ur Squamous Epith Cells (0-5) /hpf Amorphous Sediment (None) /hpf Hyaline Casts (0-3) /lpf Urine Mucus (Occasional) /lpf Micro UA Comment Ur Microscopic Review Urine Culture Comments Nasal Screen MRSA (PCR) (Negative) Urine Opiates Screen (Neg) Ur Barbiturates Screen (Neg) Ur Amphetamines Screen (Neg) U Benzodiazepines Scrn (Neg) Urine Cocaine Screen (Neg) U Cannabinoids Screen (Neg) 04/26/18 04/27/18 04/27/18 Range/Units 20:45 05:44 05:44 CBC w Diff WBC 6.9 (4.0-11.0) th/mm3 RBC 3.59 L (4.00-5.30) mil/mm3 Hgb 10.7 L (11.6-15.3) gm/dL Hct 32.3 L (35.0-46.0) % MCV 89.8 (80.0-100.0) fL MCH 29.9 (27.0-34.0) pg MCHC 33.3 (32.0-36.0) % RDW 12.9 (11.6-17.2) % Plt Count 167 (150-450) th/mm3 MPV 8.4 (7.0-11.0) fL Neut % (Auto) (16.0-70.0) % Lymph % (Auto) (9.0-44.0) % [place] % (Auto) (0.0-8.0) % Eos % (Auto) (0.0-4.0) % Baso % (Auto) (0.0-2.0) % Neut # (Auto) (1.8-7.7) th/mm3 Lymph # (Auto) (1.0-4.8) th/mm3 [place] # (Auto) (0.0-0.9) th/mm3 Eos # (Auto) (0.0-0.4) th/mm3 Baso # (Auto) (0.0-0.2) th/mm3 WBC Differential Differential Comment PT (9.8-11.6) sec INR Ratio APTT (23.4-31.7) sec Puncture Site Patient Temperature VBG pH (7.360-7.400) VBG pCO2 (44-48) mmHG VBG pO2 (35-40) mmHG VBG HCO3 (22-26) mmol/L VBG O2 Saturation (70-76) % VBG O2 Content (9.0-17.0) Vol % VBG Base Excess (-2-2) mmol/L VBG Carboxyhemoglobin (0-4) % VBG Methemoglobin (0-2) % Hemoglobin (12.0-16.0) G/DL Inspired O2 % Critical Value Sodium 137 (136-145) meq/L Potassium 4.4 (3.5-5.1) meq/L Chloride 102 D (98-107) meq/L Carbon Dioxide 28.1 (21.0-32.0) meq/L Anion Gap 7 (5-15) meq/L BUN 14 (7-18) mg/dL Creatinine 0.73 (0.50-1.00) mg/dL Estimated GFR 77 L (>89) mL/min POC Glucose 135 H (68-110) mg/dl Random Glucose 372 H D (74-106) mg/dL Calcium 7.9 L (8.5-10.1) mg/dL Calcium Adj for Albumin (8.5-10.1) mg/dL Phosphorus 2.5 (2.5-4.9) mg/dL Magnesium 1.8 (1.5-2.5) mg/dL Total Bilirubin (0.2-1.0) mg/dL AST (15-37) U/L ALT (10-53) U/L Alkaline Phosphatase (45-117) U/L Troponin I (0.02-0.05) ng/mL Total Protein (6.4-8.2) g/dL Albumin (3.4-5.0) g/dL Beta-Hydroxybutyric Acd (0.00-0.39) mmol/L TSH (0.358-3.740) uIU/mL Urine Color (Yellw/Straw) Urine Clarity (Clear) Urine pH (5.0-8.5) Ur Specific [place] (1.002-1.035) Urine Protein (Neg-Trace) mg/dL Urine Glucose (UA) (Negative) mg/dL Urine Ketones (Negative) mg/dL Urine Occult Blood (Negative) Urine Nitrate (Negative) Urine Bilirubin (Negative) Urine Urobilinogen (Less than 2) mg/dL Ur Leukocyte Esterase (Negative) Urine RBC (0-3) /hpf Urine WBC (0-5) /hpf Ur Squamous Epith Cells (0-5) /hpf Amorphous Sediment (None) /hpf Hyaline Casts (0-3) /lpf Urine Mucus (Occasional) /lpf Micro UA Comment Ur Microscopic Review Urine Culture Comments Nasal Screen MRSA (PCR) (Negative) Urine Opiates Screen (Neg) Ur Barbiturates Screen (Neg) Ur Amphetamines Screen (Neg) U Benzodiazepines Scrn (Neg) Urine Cocaine Screen (Neg) U Cannabinoids Screen (Neg) 04/27/18 04/27/18 04/27/18 Range/Units 07:59 12:04 16:25 CBC w Diff WBC (4.0-11.0) th/mm3 RBC (4.00-5.30) mil/mm3 Hgb (11.6-15.3) gm/dL Hct (35.0-46.0) % MCV (80.0-100.0) fL MCH (27.0-34.0) pg MCHC (32.0-36.0) % RDW (11.6-17.2) % Plt Count (150-450) th/mm3 MPV (7.0-11.0) fL Neut % (Auto) (16.0-70.0) % Lymph % (Auto) (9.0-44.0) % [place] % (Auto) (0.0-8.0) % Eos % (Auto) (0.0-4.0) % Baso % (Auto) (0.0-2.0) % Neut # (Auto) (1.8-7.7) th/mm3 Lymph # (Auto) (1.0-4.8) th/mm3 [place] # (Auto) (0.0-0.9) th/mm3 Eos # (Auto) (0.0-0.4) th/mm3 Baso # (Auto) (0.0-0.2) th/mm3 WBC Differential Differential Comment PT (9.8-11.6) sec INR Ratio APTT (23.4-31.7) sec Puncture Site Patient Temperature VBG pH (7.360-7.400) VBG pCO2 (44-48) mmHG VBG pO2 (35-40) mmHG VBG HCO3 (22-26) mmol/L VBG O2 Saturation (70-76) % VBG O2 Content (9.0-17.0) Vol % VBG Base Excess (-2-2) mmol/L VBG Carboxyhemoglobin (0-4) % VBG Methemoglobin (0-2) % Hemoglobin (12.0-16.0) G/DL Inspired O2 % Critical Value Sodium (136-145) meq/L Potassium (3.5-5.1) meq/L Chloride (98-107) meq/L Carbon Dioxide (21.0-32.0) meq/L Anion Gap (5-15) meq/L BUN (7-18) mg/dL Creatinine (0.50-1.00) mg/dL Estimated GFR (>89) mL/min POC Glucose 456 H* 269 H 112 H (68-110) mg/dl Random Glucose (74-106) mg/dL Calcium (8.5-10.1) mg/dL Calcium Adj for Albumin (8.5-10.1) mg/dL Phosphorus (2.5-4.9) mg/dL Magnesium (1.5-2.5) mg/dL Total Bilirubin (0.2-1.0) mg/dL AST (15-37) U/L ALT (10-53) U/L Alkaline Phosphatase (45-117) U/L Troponin I (0.02-0.05) ng/mL Total Protein (6.4-8.2) g/dL Albumin (3.4-5.0) g/dL Beta-Hydroxybutyric Acd (0.00-0.39) mmol/L TSH (0.358-3.740) uIU/mL Urine Color (Yellw/Straw) Urine Clarity (Clear) Urine pH (5.0-8.5) Ur Specific [place] (1.002-1.035) Urine Protein (Neg-Trace) mg/dL Urine Glucose (UA) (Negative) mg/dL Urine Ketones (Negative) mg/dL Urine Occult Blood (Negative) Urine Nitrate (Negative) Urine Bilirubin (Negative) Urine Urobilinogen (Less than 2) mg/dL Ur Leukocyte Esterase (Negative) Urine RBC (0-3) /hpf Urine WBC (0-5) /hpf Ur Squamous Epith Cells (0-5) /hpf Amorphous Sediment (None) /hpf Hyaline Casts (0-3) /lpf Urine Mucus (Occasional) /lpf Micro UA Comment Ur Microscopic Review Urine Culture Comments Nasal Screen MRSA (PCR) (Negative) Urine Opiates Screen (Neg) Ur Barbiturates Screen (Neg) Ur Amphetamines Screen (Neg) U Benzodiazepines Scrn (Neg) Urine Cocaine Screen (Neg) U Cannabinoids Screen (Neg) 04/27/18 04/28/18 04/28/18 Range/Units 21:29 05:35 05:35 CBC w Diff WBC 5.4 (4.0-11.0) th/mm3 RBC 3.74 L (4.00-5.30) mil/mm3 Hgb 11.2 L (11.6-15.3) gm/dL Hct 33.5 L (35.0-46.0) % MCV 89.7 (80.0-100.0) fL MCH 29.9 (27.0-34.0) pg MCHC 33.3 (32.0-36.0) % RDW 12.4 (11.6-17.2) % Plt Count 186 (150-450) th/mm3 MPV 8.8 (7.0-11.0) fL Neut % (Auto) (16.0-70.0) % Lymph % (Auto) (9.0-44.0) % [place] % (Auto) (0.0-8.0) % Eos % (Auto) (0.0-4.0) % Baso % (Auto) (0.0-2.0) % Neut # (Auto) (1.8-7.7) th/mm3 Lymph # (Auto) (1.0-4.8) th/mm3 [place] # (Auto) (0.0-0.9) th/mm3 Eos # (Auto) (0.0-0.4) th/mm3 Baso # (Auto) (0.0-0.2) th/mm3 WBC Differential Differential Comment PT (9.8-11.6) sec INR Ratio APTT (23.4-31.7) sec Puncture Site Patient Temperature VBG pH (7.360-7.400) VBG pCO2 (44-48) mmHG VBG pO2 (35-40) mmHG VBG HCO3 (22-26) mmol/L VBG O2 Saturation (70-76) % VBG O2 Content (9.0-17.0) Vol % VBG Base Excess (-2-2) mmol/L VBG Carboxyhemoglobin (0-4) % VBG Methemoglobin (0-2) % Hemoglobin (12.0-16.0) G/DL Inspired O2 % Critical Value Sodium 140 (136-145) meq/L Potassium 3.9 (3.5-5.1) meq/L Chloride 102 (98-107) meq/L Carbon Dioxide 31.4 (21.0-32.0) meq/L Anion Gap 7 (5-15) meq/L BUN 14 (7-18) mg/dL Creatinine 0.61 (0.50-1.00) mg/dL Estimated GFR Greater than 89 (>89) mL/min POC Glucose 79 (68-110) mg/dl Random Glucose 145 H D (74-106) mg/dL Calcium 8.2 L (8.5-10.1) mg/dL Calcium Adj for Albumin (8.5-10.1) mg/dL Phosphorus 2.8 (2.5-4.9) mg/dL Magnesium 1.8 (1.5-2.5) mg/dL Total Bilirubin (0.2-1.0) mg/dL AST (15-37) U/L ALT (10-53) U/L Alkaline Phosphatase (45-117) U/L Troponin I (0.02-0.05) ng/mL Total Protein (6.4-8.2) g/dL Albumin (3.4-5.0) g/dL Beta-Hydroxybutyric Acd (0.00-0.39) mmol/L TSH (0.358-3.740) uIU/mL Urine Color (Yellw/Straw) Urine Clarity (Clear) Urine pH (5.0-8.5) Ur Specific [place] (1.002-1.035) Urine Protein (Neg-Trace) mg/dL Urine Glucose (UA) (Negative) mg/dL Urine Ketones (Negative) mg/dL Urine Occult Blood (Negative) Urine Nitrate (Negative) Urine Bilirubin (Negative) Urine Urobilinogen (Less than 2) mg/dL Ur Leukocyte Esterase (Negative) Urine RBC (0-3) /hpf Urine WBC (0-5) /hpf Ur Squamous Epith Cells (0-5) /hpf Amorphous Sediment (None) /hpf Hyaline Casts (0-3) /lpf Urine Mucus (Occasional) /lpf Micro UA Comment Ur Microscopic Review Urine Culture Comments Nasal Screen MRSA (PCR) (Negative) Urine Opiates Screen (Neg) Ur Barbiturates Screen (Neg) Ur Amphetamines Screen (Neg) U Benzodiazepines Scrn (Neg) Urine Cocaine Screen (Neg) U Cannabinoids Screen (Neg) 04/28/18 04/28/18 04/28/18 Range/Units 05:35 06:37 09:21 CBC w Diff WBC (4.0-11.0) th/mm3 RBC (4.00-5.30) mil/mm3 Hgb (11.6-15.3) gm/dL Hct (35.0-46.0) % MCV (80.0-100.0) fL MCH (27.0-34.0) pg MCHC (32.0-36.0) % RDW (11.6-17.2) % Plt Count (150-450) th/mm3 MPV (7.0-11.0) fL Neut % (Auto) (16.0-70.0) % Lymph % (Auto) (9.0-44.0) % [place] % (Auto) (0.0-8.0) % Eos % (Auto) (0.0-4.0) % Baso % (Auto) (0.0-2.0) % Neut # (Auto) (1.8-7.7) th/mm3 Lymph # (Auto) (1.0-4.8) th/mm3 [place] # (Auto) (0.0-0.9) th/mm3 Eos # (Auto) (0.0-0.4) th/mm3 Baso # (Auto) (0.0-0.2) th/mm3 WBC Differential Differential Comment PT 9.8 (9.8-11.6) sec INR 1.0 Ratio APTT (23.4-31.7) sec Puncture Site Patient Temperature VBG pH (7.360-7.400) VBG pCO2 (44-48) mmHG VBG pO2 (35-40) mmHG VBG HCO3 (22-26) mmol/L VBG O2 Saturation (70-76) % VBG O2 Content (9.0-17.0) Vol % VBG Base Excess (-2-2) mmol/L VBG Carboxyhemoglobin (0-4) % VBG Methemoglobin (0-2) % Hemoglobin (12.0-16.0) G/DL Inspired O2 % Critical Value Sodium (136-145) meq/L Potassium (3.5-5.1) meq/L Chloride (98-107) meq/L Carbon Dioxide (21.0-32.0) meq/L Anion Gap (5-15) meq/L BUN (7-18) mg/dL Creatinine (0.50-1.00) mg/dL Estimated GFR (>89) mL/min POC Glucose 167 H 241 H (68-110) mg/dl Random Glucose (74-106) mg/dL Calcium (8.5-10.1) mg/dL Calcium Adj for Albumin (8.5-10.1) mg/dL Phosphorus (2.5-4.9) mg/dL Magnesium (1.5-2.5) mg/dL Total Bilirubin (0.2-1.0) mg/dL AST (15-37) U/L ALT (10-53) U/L Alkaline Phosphatase (45-117) U/L Troponin I (0.02-0.05) ng/mL Total Protein (6.4-8.2) g/dL Albumin (3.4-5.0) g/dL Beta-Hydroxybutyric Acd (0.00-0.39) mmol/L TSH (0.358-3.740) uIU/mL Urine Color (Yellw/Straw) Urine Clarity (Clear) Urine pH (5.0-8.5) Ur Specific [place] (1.002-1.035) Urine Protein (Neg-Trace) mg/dL Urine Glucose (UA) (Negative) mg/dL Urine Ketones (Negative) mg/dL Urine Occult Blood (Negative) Urine Nitrate (Negative) Urine Bilirubin (Negative) Urine Urobilinogen (Less than 2) mg/dL Ur Leukocyte Esterase (Negative) Urine RBC (0-3) /hpf Urine WBC (0-5) /hpf Ur Squamous Epith Cells (0-5) /hpf Amorphous Sediment (None) /hpf Hyaline Casts (0-3) /lpf Urine Mucus (Occasional) /lpf Micro UA Comment Ur Microscopic Review Urine Culture Comments Nasal Screen MRSA (PCR) (Negative) Urine Opiates Screen (Neg) Ur Barbiturates Screen (Neg) Ur Amphetamines Screen (Neg) U Benzodiazepines Scrn (Neg) Urine Cocaine Screen (Neg) U Cannabinoids Screen (Neg) 04/28/18 04/28/18 04/28/18 Range/Units 11:42 16:16 21:50 CBC w Diff WBC (4.0-11.0) th/mm3 RBC (4.00-5.30) mil/mm3 Hgb (11.6-15.3) gm/dL Hct (35.0-46.0) % MCV (80.0-100.0) fL MCH (27.0-34.0) pg MCHC (32.0-36.0) % RDW (11.6-17.2) % Plt Count (150-450) th/mm3 MPV (7.0-11.0) fL Neut % (Auto) (16.0-70.0) % Lymph % (Auto) (9.0-44.0) % [place] % (Auto) (0.0-8.0) % Eos % (Auto) (0.0-4.0) % Baso % (Auto) (0.0-2.0) % Neut # (Auto) (1.8-7.7) th/mm3 Lymph # (Auto) (1.0-4.8) th/mm3 [place] # (Auto) (0.0-0.9) th/mm3 Eos # (Auto) (0.0-0.4) th/mm3 Baso # (Auto) (0.0-0.2) th/mm3 WBC Differential Differential Comment PT (9.8-11.6) sec INR Ratio APTT (23.4-31.7) sec Puncture Site Patient Temperature VBG pH (7.360-7.400) VBG pCO2 (44-48) mmHG VBG pO2 (35-40) mmHG VBG HCO3 (22-26) mmol/L VBG O2 Saturation (70-76) % VBG O2 Content (9.0-17.0) Vol % VBG Base Excess (-2-2) mmol/L VBG Carboxyhemoglobin (0-4) % VBG Methemoglobin (0-2) % Hemoglobin (12.0-16.0) G/DL Inspired O2 % Critical Value Sodium (136-145) meq/L Potassium (3.5-5.1) meq/L Chloride (98-107) meq/L Carbon Dioxide (21.0-32.0) meq/L Anion Gap (5-15) meq/L BUN (7-18) mg/dL Creatinine (0.50-1.00) mg/dL Estimated GFR (>89) mL/min POC Glucose 244 H 206 H 286 H (68-110) mg/dl Random Glucose (74-106) mg/dL Calcium (8.5-10.1) mg/dL Calcium Adj for Albumin (8.5-10.1) mg/dL Phosphorus (2.5-4.9) mg/dL Magnesium (1.5-2.5) mg/dL Total Bilirubin (0.2-1.0) mg/dL AST (15-37) U/L ALT (10-53) U/L Alkaline Phosphatase (45-117) U/L Troponin I (0.02-0.05) ng/mL Total Protein (6.4-8.2) g/dL Albumin (3.4-5.0) g/dL Beta-Hydroxybutyric Acd (0.00-0.39) mmol/L TSH (0.358-3.740) uIU/mL Urine Color (Yellw/Straw) Urine Clarity (Clear) Urine pH (5.0-8.5) Ur Specific [place] (1.002-1.035) Urine Protein (Neg-Trace) mg/dL Urine Glucose (UA) (Negative) mg/dL Urine Ketones (Negative) mg/dL Urine Occult Blood (Negative) Urine Nitrate (Negative) Urine Bilirubin (Negative) Urine Urobilinogen (Less than 2) mg/dL Ur Leukocyte Esterase (Negative) Urine RBC (0-3) /hpf Urine WBC (0-5) /hpf Ur Squamous Epith Cells (0-5) /hpf Amorphous Sediment (None) /hpf Hyaline Casts (0-3) /lpf Urine Mucus (Occasional) /lpf Micro UA Comment Ur Microscopic Review Urine Culture Comments Nasal Screen MRSA (PCR) (Negative) Urine Opiates Screen (Neg) Ur Barbiturates Screen (Neg) Ur Amphetamines Screen (Neg) U Benzodiazepines Scrn (Neg) Urine Cocaine Screen (Neg) U Cannabinoids Screen (Neg) 04/29/18 04/29/18 04/29/18 Range/Units 08:17 08:30 12:03 CBC w Diff WBC (4.0-11.0) th/mm3 RBC (4.00-5.30) mil/mm3 Hgb (11.6-15.3) gm/dL Hct (35.0-46.0) % MCV (80.0-100.0) fL MCH (27.0-34.0) pg MCHC (32.0-36.0) % RDW (11.6-17.2) % Plt Count (150-450) th/mm3 MPV (7.0-11.0) fL Neut % (Auto) (16.0-70.0) % Lymph % (Auto) (9.0-44.0) % [place] % (Auto) (0.0-8.0) % Eos % (Auto) (0.0-4.0) % Baso % (Auto) (0.0-2.0) % Neut # (Auto) (1.8-7.7) th/mm3 Lymph # (Auto) (1.0-4.8) th/mm3 [place] # (Auto) (0.0-0.9) th/mm3 Eos # (Auto) (0.0-0.4) th/mm3 Baso # (Auto) (0.0-0.2) th/mm3 WBC Differential Differential Comment PT (9.8-11.6) sec INR Ratio APTT (23.4-31.7) sec Puncture Site Patient Temperature VBG pH (7.360-7.400) VBG pCO2 (44-48) mmHG VBG pO2 (35-40) mmHG VBG HCO3 (22-26) mmol/L VBG O2 Saturation (70-76) % VBG O2 Content (9.0-17.0) Vol % VBG Base Excess (-2-2) mmol/L VBG Carboxyhemoglobin (0-4) % VBG Methemoglobin (0-2) % Hemoglobin (12.0-16.0) G/DL Inspired O2 % Critical Value Sodium 139 (136-145) meq/L Potassium 4.2 (3.5-5.1) meq/L Chloride 100 (98-107) meq/L Carbon Dioxide 33.6 H (21.0-32.0) meq/L Anion Gap 5 (5-15) meq/L BUN 16 (7-18) mg/dL Creatinine 0.74 (0.50-1.00) mg/dL Estimated GFR 76 L (>89) mL/min POC Glucose 181 H 516 H* (68-110) mg/dl Random Glucose 200 H (74-106) mg/dL Calcium 8.7 (8.5-10.1) mg/dL Calcium Adj for Albumin (8.5-10.1) mg/dL Phosphorus 3.9 D (2.5-4.9) mg/dL Magnesium 2.0 (1.5-2.5) mg/dL Total Bilirubin (0.2-1.0) mg/dL AST (15-37) U/L ALT (10-53) U/L Alkaline Phosphatase (45-117) U/L Troponin I (0.02-0.05) ng/mL Total Protein (6.4-8.2) g/dL Albumin (3.4-5.0) g/dL Beta-Hydroxybutyric Acd (0.00-0.39) mmol/L TSH (0.358-3.740) uIU/mL Urine Color (Yellw/Straw) Urine Clarity (Clear) Urine pH (5.0-8.5) Ur Specific [place] (1.002-1.035) Urine Protein (Neg-Trace) mg/dL Urine Glucose (UA) (Negative) mg/dL Urine Ketones (Negative) mg/dL Urine Occult Blood (Negative) Urine Nitrate (Negative) Urine Bilirubin (Negative) Urine Urobilinogen (Less than 2) mg/dL Ur Leukocyte Esterase (Negative) Urine RBC (0-3) /hpf Urine WBC (0-5) /hpf Ur Squamous Epith Cells (0-5) /hpf Amorphous Sediment (None) /hpf Hyaline Casts (0-3) /lpf Urine Mucus (Occasional) /lpf Micro UA Comment Ur Microscopic Review Urine Culture Comments Nasal Screen MRSA (PCR) (Negative) Urine Opiates Screen (Neg) Ur Barbiturates Screen (Neg) Ur Amphetamines Screen (Neg) U Benzodiazepines Scrn (Neg) Urine Cocaine Screen (Neg) U Cannabinoids Screen (Neg) 04/29/18 04/29/18 Range/Units 15:43 16:47 CBC w Diff WBC (4.0-11.0) th/mm3 RBC (4.00-5.30) mil/mm3 Hgb (11.6-15.3) gm/dL Hct (35.0-46.0) % MCV (80.0-100.0) fL MCH (27.0-34.0) pg MCHC (32.0-36.0) % RDW (11.6-17.2) % Plt Count (150-450) th/mm3 MPV (7.0-11.0) fL Neut % (Auto) (16.0-70.0) % Lymph % (Auto) (9.0-44.0) % [place] % (Auto) (0.0-8.0) % Eos % (Auto) (0.0-4.0) % Baso % (Auto) (0.0-2.0) % Neut # (Auto) (1.8-7.7) th/mm3 Lymph # (Auto) (1.0-4.8) th/mm3 [place] # (Auto) (0.0-0.9) th/mm3 Eos # (Auto) (0.0-0.4) th/mm3 Baso # (Auto) (0.0-0.2) th/mm3 WBC Differential Differential Comment PT (9.8-11.6) sec INR Ratio APTT (23.4-31.7) sec Puncture Site Patient Temperature VBG pH (7.360-7.400) VBG pCO2 (44-48) mmHG VBG pO2 (35-40) mmHG VBG HCO3 (22-26) mmol/L VBG O2 Saturation (70-76) % VBG O2 Content (9.0-17.0) Vol % VBG Base Excess (-2-2) mmol/L VBG Carboxyhemoglobin (0-4) % VBG Methemoglobin (0-2) % Hemoglobin (12.0-16.0) G/DL Inspired O2 % Critical Value Sodium (136-145) meq/L Potassium (3.5-5.1) meq/L Chloride (98-107) meq/L Carbon Dioxide (21.0-32.0) meq/L Anion Gap (5-15) meq/L BUN (7-18) mg/dL Creatinine (0.50-1.00) mg/dL Estimated GFR (>89) mL/min POC Glucose 127 H 57 L (68-110) mg/dl Random Glucose (74-106) mg/dL Calcium (8.5-10.1) mg/dL Calcium Adj for Albumin (8.5-10.1) mg/dL Phosphorus (2.5-4.9) mg/dL Magnesium (1.5-2.5) mg/dL Total Bilirubin (0.2-1.0) mg/dL AST (15-37) U/L ALT (10-53) U/L Alkaline Phosphatase (45-117) U/L Troponin I (0.02-0.05) ng/mL Total Protein (6.4-8.2) g/dL Albumin (3.4-5.0) g/dL Beta-Hydroxybutyric Acd (0.00-0.39) mmol/L TSH (0.358-3.740) uIU/mL Urine Color (Yellw/Straw) Urine Clarity (Clear) Urine pH (5.0-8.5) Ur Specific [place] (1.002-1.035) Urine Protein (Neg-Trace) mg/dL Urine Glucose (UA) (Negative) mg/dL Urine Ketones (Negative) mg/dL Urine Occult Blood (Negative) Urine Nitrate (Negative) Urine Bilirubin (Negative) Urine Urobilinogen (Less than 2) mg/dL Ur Leukocyte Esterase (Negative) Urine RBC (0-3) /hpf Urine WBC (0-5) /hpf Ur Squamous Epith Cells (0-5) /hpf Amorphous Sediment (None) /hpf Hyaline Casts (0-3) /lpf Urine Mucus (Occasional) /lpf Micro UA Comment Ur Microscopic Review Urine Culture Comments Nasal Screen MRSA (PCR) (Negative) Urine Opiates Screen (Neg) Ur Barbiturates Screen (Neg) Ur Amphetamines Screen (Neg) U Benzodiazepines Scrn (Neg) Urine Cocaine Screen (Neg) U Cannabinoids Screen (Neg) Imaging Data Radiologist's impression: Chest X-Ray 04/24/18 21:41 CONCLUSION: No acute cardiopulmonary disease. Abdomen/Pelvis CT 04/28/18 00:00 CONCLUSION: 1. A 6-7 mm nodule right lower lobe. Follow-up CT chest in 3 months recommended for stability. 2. No acute inflammatory process. 3. Scattered diverticulosis without diverticulitis. i reviewed reading ECG Data Attestation: I personally reviewed and interpreted this ECG as follows: (EKG rate 120 tachycardia with Depressions in V4-6 possible rate dependent depressions) Discharge Plan Discharge Disposition Patient Disposition: 30 Still Patient Discharge Condition Condition: Stable Discharge Order Discharge Orders: Discharge Order (Routine); Ordered 04/29/18 Ordered By: Minoo Griffiths ED Use Only Admit Order (Routine); Ordered 04/24/18 Ordered By: Octavio Moore Physicians Team ED Provider: Octavio Moore Primary Care Provider: UNKNOWN, Attending Provider: Minoo Griffiths Other Providers: Sarmad Velásquez ; [employer] Status ED Status: Left Department Discharge Information Discharge Date/Time: 04/25/18 07:32
[2018-04-24 20:20] LABS: Baso # (Auto) 0.7 th/mm3 (0.0-0.2); Baso % (Auto) 4.1 % (0.0-2.0); Eos % (Auto) 0.1 % (0.0-4.0); Hematocrit 35.3 % (35.0-46.0); Hemoglobin 11.5 gm/dL (11.6-15.3); Lymph # (Auto) 0.5 th/mm3 (1.0-4.8); Lymph % (Auto) 2.9 % (9.0-44.0); Mean Corpuscular HGB Conc 32.5 % (32.0-36.0); Mean Corpuscular Hemoglobin 30.2 pg (27.0-34.0); Mean Corpuscular Volume 92.8 fL (80.0-100.0); Mean Platelet Volume 9.6 fL (7.0-11.0); Mono % (Auto) 5.6 % (0.0-8.0); Neut # (Auto) 15.2 th/mm3 (1.8-7.7); Neut % (Auto) 87.3 % (16.0-70.0); Platelet Count 233 th/mm3 (150-450); Red Blood Count 3.81 mil/mm3 (4.00-5.30); Red Cell Distribution Width 13.3 % (11.6-17.2); White Blood Count 17.4 th/mm3 (4.0-11.0)
[2018-04-24 20:29] LABS: Chloride 93 meq/L (98-107); Potassium 4.4 meq/L (3.5-5.1); Sodium 131 meq/L (136-145)
[2018-04-24 20:32] LABS: Albumin 3.5 g/dL (3.4-5.0); Anion Gap 28 meq/L (5-15); Calcium 8.3 mg/dL (8.5-10.1); Carbon Dioxide 9.8 meq/L (21.0-32.0)
[2018-04-24 20:33] LABS: Blood Urea Nitrogen 40 mg/dL (7-18)
[2018-04-24 20:35] LABS: Alanine Aminotransferase 19 U/L (10-53)
[2018-04-24 20:36] LABS: Aspartate Aminotransferase 20 U/L (15-37); Glomerular Filtration Rate 24 mL/min (>89)
[2018-04-24 20:37] LABS: Total Protein 6.3 g/dL (6.4-8.2)
[2018-04-24] MEDS ORDERED: Metoprolol Inj 5 MG/5 ML Vial IV.PUSH ONE (20:43)
[2018-04-24 20:57] LABS: Alkaline Phosphatase 108 U/L (45-117); Beta Hydroxybutyric Acid 8.25 mmol/L (0.00-0.39)
[2018-04-24 20:58] LABS: Glucose,Random 611 mg/dL (74-106)
[2018-04-24] MEDS ORDERED: Dextrose 50% in Water 50 ML Vial IV.PUSH PRN (21:10)
[2018-04-24] MEDS ORDERED: Sod Chloride 0.9% Inj 1,000 ML IV.SIG ONE (21:13)
[2018-04-24] MEDS: Insulin Human-R 100 UNIT/100ML 100 UNIT/100 ML BAG IV.CONT ONE ×2 (21:22→21:40)
[2018-04-24] MEDS ORDERED: Potassium Chlor 20 mEq Premix 20 MEQ/100 ML PIGGYBACK IV.SIG ONE ×2 (21:28→21:30)
[2018-04-24 21:37] LABS: VBG Base Excess -13.3 mmol/L (-2-2); VBG Blood Gas Oxygen Content 10.2 Vol % (9.0-17.0); VBG PCO2 33 mmHG (44-48); VBG PH 7.21 (7.360-7.400); VBG PO2 46 mmHG (35-40)
[2018-04-24] MEDS ORDERED: Sodium Phosphate Inj 15 MMOL in Sodium Chlor 0.9% Inj 100 ML IV.SIG PRN (21:51)
[2018-04-24] MEDS ORDERED: Potassium Chlor 20 mEq Premix 20 MEQ/100 ML PIGGYBACK IV.SIG PRN ×4 (21:51)
[2018-04-24] MEDS ORDERED: Insulin Regular (For Infusion) 100 UNIT in Sodium Chlor 0.9% Inj 99 ML IV.CONT PRN (21:51)
--- NOTE | 2018-04-24 21:55 | XR ---
EXAM DATE: 04/24/2018 9:50 PM EST AGE/SEX: 77 years / Female INDICATIONS: General weakness. CLINICAL DATA: This is the patient's initial encounter. Patient reports that signs and symptoms have been present for 1 day and indicates a pain score of 0/10. MEDICAL/SURGICAL HISTORY: Diabetes. None. COMPARISON: [facility], XR CHEST PA AND LAT, 04/11/2018. . FINDINGS: A single AP view of the chest demonstrates the lungs to be symmetrically aerated without evidence of mass, infiltrate or effusion. The cardiomediastinal contours are unremarkable. Osseous structures a re intact. CONCLUSION: No acute cardiopulmonary disease. Electronically signed by: Bony Johnson MD 04/24/2018 9:54 PM EST
[2018-04-24] MEDS ORDERED: Dextrose 5%/NaCl 0.9% Inj 1,000 ML IV.CONT SCH (22:00)
[2018-04-24] MEDS ORDERED: Sod Chloride 0.9% Inj 1,000 ML IV.CONT SCH (22:00)
[2018-04-24 22:50] LABS: Clarity,Urine Clear (Clear); Color,Urine Yellow (Yellw/Straw); Leukocyte Esterase,Urine Negative (Negative); Nitrite,Urine Negative (Negative); Specific Gravity,Urine Greater/Equal 1.030 (1.002-1.035); Urobilinogen,Urine 0.2 mg/dL (Less than 2)
[2018-04-24 22:57] LABS: Bilirubin,Urine Negative (Negative)
[2018-04-24 22:58] LABS: Amphetamine Screen,Urine Neg (Neg); Barbiturate Screen,Urine Neg (Neg)
[2018-04-24 22:59] LABS: Cannabinoid Screen,Urine Neg (Neg); Cocaine Screen,Urine Neg (Neg)
[2018-04-24 23:07] LABS: Amorphous Sediment,Urine Few /hpf; Mucus,Urine Few /lpf (Occasional); RBC,Urine 0-3 /hpf (0-3); Squamous Epithelial Cell,Urine 0-5 /hpf (0-5)
[2018-04-24 23:51] LABS: Opiate Screen,Urine Neg (Neg)
[2018-04-25] MEDS ORDERED: Dextrose 5%/NaCl 0.9% Inj 1,000 ML IV.CONT SCH (01:45)
[2018-04-25 02:41] LABS: Calcium 7.2 mg/dL (8.5-10.1); Magnesium 1.6 mg/dL (1.5-2.5); Phosphorus 1.2 mg/dL (2.5-4.9); Potassium 4.1 meq/L (3.5-5.1)
[2018-04-25 02:45] LABS: Troponin I 1.39 ng/mL (0.02-0.05)
[2018-04-25] MEDS ORDERED: Heparin Drip 25,000 UNIT/250 ML BAG IV.CONT PRN (02:57)
[2018-04-25] MEDS ORDERED: Heparin 10,000 UNITS/10 ML Vial (for IV use) IV.PUSH STA (02:57)
[2018-04-25 03:06] LABS: Albumin 2.5 g/dL (3.4-5.0); Calcium-Albumin Corrected 8.4 mg/dL (8.5-10.1)
[2018-04-25] MEDS ORDERED: Chlorhexidine Gluconate 2% 1 Pack (2 Cloths) TOPICAL PRN (04:00)
[2018-04-25 04:39] LABS: Activated Partial Thrombo Time 20.5 sec (23.4-31.7); INR 1.1 Ratio; Prothrombin Time 11.1 sec (9.8-11.6)
[2018-04-25] MEDS ORDERED: Metoprolol Inj 5 MG/5 ML Vial IV.PUSH ONE (06:05)
[2018-04-25] MEDS ORDERED: Metoprolol Inj 5 MG/5 ML Vial IV.PUSH PRN (06:15)
[2018-04-25] MEDS ORDERED: Dextrose 50% in Water 50 ML Vial IV.PUSH PRN (06:15)
[2018-04-25] MEDS ORDERED: Bisacodyl 10 MG Supp RECTAL PRN (06:15)
[2018-04-25] MEDS ORDERED: Insulin Detemir Inj 1,000 UNIT/10 ML Vial SQ SCH (06:15)
--- NOTE | 2018-04-25 06:22 | P.HPCC ---
History of Present Illness Service: Critical care medicine Primary Care Physician: UNKNOWN Chief Complaint: nausea History of Present Illness: 77yF IDDM who presents with 1 day of nausea. states she didn't eat anything yesterday or take any insulin and her sugars were "very high". in the ER, she had keturia, elevated anion gap, consistent with DKA. started on insulin drip. associated elevated Cr > 2 initially which has improved now to 1.5. Initially, she had lateral ST depressions and slight troponin elevation to 0.1 which trended up to 1.3 this morning. repeat EKG this morning shows resolution of the ST-twave changes. the patient denies chest pain or shortness of breath. denies jaw, neck or shoulder pain. last year, was worked up for similar EKG findings and trop leak and was found to have negative stress test and patient declined cath or further interventions. with regard to nausea, it came with one episode of NBNB emesis. no abdominal pain, constipation, diarrhea. remainder ROS negative. Inpatient Certification: I certify that the inpatient services were ordered in accordance with Medicare regulations governing the order. This includes certification that hospital inpatient services are reasonable and necessary and in the case of services not specified as inpatient-only under 42 CFR 419.22(n), that they are appropriately provided as inpatient services in accordance to with the 2-midnight benchmark under 43 CFR 412.3(e) Estimated Total Length of Stay (Days): 5 Plans for Post Hospital Care: Not yet determined Review of Systems All other systems reviewed negative except as stated in HPI [facility] - History History Provided By: Patient - Medical History Medical History: Medical History (Last Reviewed 04/25/18 @ 06:31 by Juan Loja MD) Diabetes mellitus History of hysterectomy Hypothyroid - Surgical History Surgical History: Surgical History (Last Reviewed 04/25/18 @ 06:31 by Juan Loja MD) History of tonsillectomy - Family History Family History: Family History (Last Updated 04/25/18 @ 06:31 by Juan Loja MD) Other Family history non-contributory - Social History I have reviewed the patient's Social History: Yes - Tobacco History Second Hand Smoke Exposure: No Tobacco Use In Past 30 Days: No Smoking Status: Never smoker - Alcohol History How Often Do You Have a Drink Containing Alcohol: Never - Substance Use History Substance History: No History of Abuse - Travel History Recent Travel in the [place] Within the Last 8 Weeks: No Recent Travel Out of the Country Within the Last 8 Weeks: No - Immunization History Tetanus Immunization: Unsure Medications and Allergies Active Medications: Active Medications Chlorhexidine Gluconate (Chlorhexidine 2% Cloth) 3 pack TOPICAL DAILY@0400 MANAN Stop: 04/30/18 03:59 Chlorhexidine Gluconate (Chlorhexidine 2% Cloth) 3 pack TOPICAL DAILY@0400 PRN PRN Reason: Extra cloth needed Stop: 04/30/18 03:59 Dextrose (D50w Vial) 50 ml IV.PUSH UNSCH PRN PRN Reason: PER HYPOGLYCEMIA PROTOCOL Dextrose/Sodium Chloride (D5w/Normal Saline Inj) 1,000 mls @ 200 mls/hr IV.CONT .Q5H [facility] Last Admin: 04/25/18 02:04 Dose: 200 mls/hr Potassium Chloride (Kcl 20 Meq Premix Inj) 20 meq in 100 mls @ 50 mls/hr IV.SIG Q2H PRN PRN Reason: for Subsequent K+ < 3.5 Potassium Chloride (Kcl 20 Meq Premix Inj) 20 meq in 100 mls @ 50 mls/hr IV.SIG Q2H PRN PRN Reason: for K+ 3.5 to 4.4 Potassium Chloride (Kcl 20 Meq Premix Inj) 20 meq in 100 mls @ 50 mls/hr IV.SIG Q2H PRN PRN Reason: for K+ 4.5 to 5 Sodium Phosphate 15 mmol/ (Sodium Chloride) 105 mls @ 25 mls/hr IV.SIG UNSCH PRN PRN Reason: for Phosphate Level < 1.0 Last Admin: 04/25/18 03:14 Dose: 25 mls/hr Potassium Chloride (Kcl 20 Meq Premix Inj) 20 meq in 100 mls @ 50 mls/hr IV.SIG Q2H PRN PRN Reason: for Initial K+ ONLY < 3.5 Dextrose/Sodium Chloride (D5w/Normal Saline Inj) 1,000 mls @ 200 mls/hr IV.CONT .Q5H MANAN Heparin Sodium/Dextrose (Heparin/D5w 25,000 U/250 Ml) 25,000 unit in 250 mls @ 0 mls/hr IV.CONT TITRATE PRN; Protocol PRN Reason: Per Protocol Last Admin: 04/25/18 05:03 Dose: 700 units/hr, 7 mls/hr Insulin Detemir (Levemir Inj) 5 unit SQ DAILY MANAN Sodium Chloride (Ns Flush) 2 ml IV.FLUSH PRN PRN PRN Reason: FLUSH AFTER USING IV ACCESS Last Admin: 04/25/18 06:15 Dose: 2 ml Allergies Allergy/AdvReac Type Severity Reaction Status Date / Time procaine Allergy Severe Anaphylaxis Verified 04/25/18 00:26 Home Medications Medication Instructions Recorded Confirmed Type Novolog Flexpen U-100 Insulin 5 units SUBCUT TID 04/24/18 04/24/18 History insulin glargine [Lantus U-100 19 units SUBCUT DAILY 04/24/18 04/24/18 History Insulin] levothyroxine 88 mcg PO DAILY 04/24/18 04/24/18 History Results - Labs CBC & Chem 7: 04/24/18 20:05 04/25/18 01:55 Labs: Short CBC 04/24/18 Range/Units 20:05 WBC 17.4 H (4.0-11.0) th/mm3 Hgb 11.5 L (11.6-15.3) gm/dL Hct 35.3 (35.0-46.0) % Plt Count 233 (150-450) th/mm3 BMP 04/24/18 04/25/18 20:05 01:55 Sodium 131 L 139 Potassium 4.4 4.1 Chloride 93 L 109 H D Carbon Dioxide 9.8 L 22.0 D BUN 40 H 40 H Creatinine 2.00 H 1.50 H Calcium 8.3 L 7.2 L* D Cardiac Enzymes 04/24/18 04/25/18 Range/Units 20:05 01:55 Troponin I 0.10 H 1.39 H* D (0.02-0.05) ng/mL Liver Function 04/24/18 04/25/18 Range/Units 20:05 01:55 Total Bilirubin 0.5 (0.2-1.0) mg/dL AST 20 (15-37) U/L ALT 19 (10-53) U/L Alkaline Phosphatase 108 (45-117) U/L Albumin 3.5 2.5 L D (3.4-5.0) g/dL Urine 04/24/18 Range/Units 22:40 Urine Color Yellow (Yellw/Straw) Urine Clarity Clear (Clear) Urine pH 5.0 (5.0-8.5) Ur Specific [place] Greater/equal 1.030 (1.002-1.035) Urine Protein Negative (Neg-Trace) mg/dL Urine Glucose (UA) 1000 or greater H (Negative) mg/dL - Imaging Impressions Chest X-Ray 04/24/18 21:41 CONCLUSION: No acute cardiopulmonary disease. Exam Vital signs: Vital Signs 04/24/18 19:48 04/24/18 20:38 04/24/18 20:55 Temperature 36.7 C Pulse Rate 133 H 116 H Respiratory Rate 16 20 Blood Pressure 125/68 120/45 L Pulse Oximetry 99 99 100 04/24/18 21:31 04/24/18 22:02 04/24/18 22:43 Temperature Pulse Rate 104 H 105 H 106 H Respiratory Rate 20 18 18 Blood Pressure 96/46 L 100/43 L Pulse Oximetry 99 99 99 04/25/18 00:50 04/25/18 02:09 04/25/18 03:59 Temperature Pulse Rate 109 H 107 H 105 H Respiratory Rate 18 18 Blood Pressure 106/49 L 104/47 L Pulse Oximetry 97 97 04/25/18 04:00 04/25/18 06:00 Temperature Pulse Rate 105 H 108 H Respiratory Rate 18 18 Blood Pressure 107/51 L 110/54 L Pulse Oximetry 97 97 Intake & Output 04/24/18 04/24/18 04/25/18 06:59 18:59 06:59 Intake Total 3050 / 3050 Output Total 300 / 300 Balance 2750 / 2750 Weight 55 kg Intake: IV 3050 / 3050 NS Inj 1,000 ML @ 250 mls/hr IV 750 / 750 .CONT .Q4H MANAN Rx#:[id number] KCl 20 mEq Premix Inj 20 meq In 200 / 200 100 ml @ 50 mls/hr IV.SIG ONCE ONE Rx#:[id number] NS Inj 1,000 ML @ Wide Open IV. 1999 SIG BOLUS ONE Rx#:[id number] Rocephin Inj 1,000 MG In NS Inj 100 / 100 100 ML @ 200 mls/hr IV.SIG ONCE ONE Rx#:[id number] Output: Urine 300 / 300 Narrative: GENERAL: elderly female, lying in bed, no acute distress. HEENT: Normocephalic. Atraumatic. Pupils equal, round, reactive, conjugate. Mucous membranes are moist NECK: Trachea is midline. There is no JVD. CHEST: equal chest rise. nc o2. CARDIOVASCULAR: slightly tachycardic rate in the 100s, regular rhythm. sinus. ABDOMEN: Soft, nontender, nondistended. No guarding. MUSCULOSKELETAL: Pulses 2+. No peripheral edema. NEUROLOGICAL: RASS 0. follows commands. no focal deficits. Septic Shock Reassessment Septic shock perfusion: reassessment completed Caprini VTE Risk Assessment Caprini VTE Risk Assessment: Moderate/High Risk (score >= 2) Caprini Risk Assessment Model: Point Value = 1 Point Value = 2 Point Value = 3 Point Value = 5 Age 41-60 Minor surgery BMI > 25 kg/m2 Swollen legs Varicose veins or History of unexplained or recurrent spontaneous Oral contraceptives or hormone replacement Sepsis (< 1 month) Serious lung disease, including pneumonia (< 1 month) Abnormal pulmonary function Acute myocardial infarction Congestive heart failure (< 1 month) History of inflammatory bowel disease Medical patient at bed rest Age 61-74 Arthroscopic surgery Major open surgery (> 45 min) Laparoscopic surgery (> 45 min) Malignancy Confined to bed (> 72 hours) Immobilizing plaster cast Central venous access Age >= 75 History of VTE Family history of VTE Factor V Leiden Prothrombin [id number] Lupus anticoagulant Anticardiolipin antibodies Elevated serum homocysteine Heparin-induced thrombocytopenia Other congenital or acquired thrombophilia Stroke (< 1 month) Elective arthroplasty Hip, pelvis, or leg fracture Acute spinal cord injury (< 1 month) Prophylaxis Regimen: Total Risk Factor Score Risk Level Prophylaxis Regimen 0-1 Low Early ambulation 2 Moderate Order ONE of the following: *Sequential Compression Device (SCD) *Heparin 5000 units SQ BID 3-4 Higher Order ONE of the following medications: *Heparin 5000 units SQ TID *Enoxaparin/Lovenox 40 mg SQ daily (WT < 150 kg, CrCl > 30 mL/min) *Enoxaparin/Lovenox 30 mg SQ daily (WT < 150 kg, CrCl > 10-29 mL/min) *Enoxaparin/Lovenox 30 mg SQ BID (WT < 150 kg, CrCl > 30 mL/min) AND/OR *Sequential Compression Device (SCD) 5 or more Highest Order ONE of the following medications: *Heparin 5000 units SQ TID (Preferred with Epidurals) *Enoxaparin/Lovenox 40 mg SQ daily (WT < 150 kg, CrCl > 30 mL/min) *Enoxaparin/Lovenox 30 mg SQ daily (WT < 150 kg, CrCl > 10-29 mL/min) *Enoxaparin/Lovenox 30 mg SQ BID (WT < 150 kg, CrCl > 30 mL/min) AND *Sequential Compression Device (SCD) Assessment and Plan - Assessment and Plan Plan: Assessment: 77yF with IDDM and presents with DKA and Type II NSTEMI secondary to demand ischemia. admit to ICU. trend troponins. clinically stable. likely troponins will downtrend with correction of organ dysfunction and buddhism of normal circulating intravascular volume. DKA Type II IDDM - gap has closed. - start levemir 5mg SQ daily - d/c insulin drip - start high dose q4h SSI - advance diet Type II NSTEMI secondary to demand ischemia elevated troponin - on heparin drip - cardiology consultation - trend troponins - unlikely to be ACS: no symptoms and negative cath a year ago Sinus Tachycardia - secondary to dehydration - d5NS @ 200cc/hr - lopressor 5mg iv prn for HR > 100 in the setting of NSTEMI - start carvedilol 3.125 mg po BID Acute intravascular volume depletion Acute severe dehydration - continue d5NS @ 200cc/hr - encourage PO intake Acute kidney injury - secondary to dehydration - improving - trend on daily bmp Hypokalemia - secondary to DKA - aggressive replacement SCDs pepcid heparin admit to step-down unit.
--- NOTE | 2018-04-25 07:40 | MB ---
cc: Tyrell Portillo MD, Alan S MD Marrero, Luis MD DATE: 04/25/2018 I have reviewed hospital records. HISTORY OF PRESENT ILLNESS: The patient is a 77-year-old white woman seen by my prior associates, Dr. Ngo and Dr. Barger. The patient has a history of diabetes and has had DKA before. Approximately a year ago, she presented with DKA. Her troponin was elevated and she had mild ST depressions. She refused catheterization and underwent SPECT nuclear, which is normal. The patient has mild stable dyspnea, but no other cardiac symptomatology. She noted that over the last few days, sugars have been high and she has had diarrhea along with nausea and vomiting and inability to keep things down. She has not taken her medication over the last 1 or 2 days. She was found on admission to be in DKA. EKG showed sinus tachycardia with mild diffuse ST depressions. Again, she had no cardiac symptomatology. MEDICATIONS PRIOR TO ADMISSION: Include: 1. Levothyroxine. 2. Insulin. PAST MEDICAL HISTORY: Apparently diabetes, hysterectomy, hypothyroidism, tonsillectomy. ALLERGIES: PROCAINE. SOCIAL HISTORY: She is and does not smoke or drink. FAMILY HISTORY: Noncontributory. REVIEW OF SYSTEMS: Remarkable for the above along with balance issues, some visual and hearing issues and joint pain. DIAGNOSTIC DATA: Chest x-ray showed no active disease. EKG is as above. LABORATORY DATA: Hematocrit 35.3 with hemoglobin of 11.5. White count 17.4. She was acidemic on blood gas. Creatinine 2.0, which has decreased to 1.5. Sodium 131, which has increased to 139. Initial glucose 611. Troponin 0.1 and 2.42. TSH normal. Liver transaminases normal. PHYSICAL EXAMINATION: GENERAL: She is alert and oriented x3. She is mildly tachycardic, but afebrile. VITAL SIGNS: Vital signs stable, otherwise. HEENT: There were no xanthelasma and oropharyngeal mucosa normal. CHEST: Clear. JVD flat. HEART: S1, S2. No murmurs or gallops. ABDOMEN: Benign. EXTREMITIES: Show no cyanosis, clubbing, or edema. Pulses: Carotids without bruits. Radials 1+. Femorals not felt through pants. Pedals trace to 1+. She has not ambulated. PROBLEMS: 1. Non-ST elevation [place] - The patient had a similar presentation a year ago and refused catheterization. SPECT nuclear was normal. She has no cardiac symptomatology. 2. Diabetes. 3. Hypothyroidism. 4. Dehydration with acute renal insufficiency. RECOMMENDATIONS: 1. I have discussed the situation with the critical care physician, Dr. Ferreira. At this point in time, given her lack of chest pain, I would discontinue heparin and just do DVT prophylaxis. 2. Hydration and DKA management per critical care. 3. The patient again does not want catheterization and given her lack of chest pain only wants medical management given her negative nuclear stress test a year ago. 4. Ideally, the patient should be on statin therapy with her diabetes and I would leave that to the primary service. At this point in time, I have nothing more to add. She will follow up with her PCP. We will be available if needed. All questions have been answered. Tyrell Portillo MD ASG/sv , 06:42 AM , 06:50 AM
[2018-04-25] MEDS ORDERED: Insulin NovoLIN Regular Correctional Sugar Inj SQ SCH (08:00)
[2018-04-25] MEDS ORDERED: Famotidine 20 MG Tablet PO SCH (09:00)
[2018-04-25] MEDS: Polyethylene Glycol 3350 17 GM Packet PO SCH ×2 (09:40→20:31)
[2018-04-25] MEDS: Chlorhexidine Gluconate 2% 1 Pack (2 Cloths) TOPICAL SCH (09:41)
[2018-04-25] MEDS: Aspirin 325 MG Tablet PO SCH (09:42)
[2018-04-25] MEDS: Senna/Docusate Sodium 8.6/50 MG Tablet PO SCH ×2 (09:44→22:24)
--- NOTE | 2018-04-25 10:52 | P.PNIM ---
Subjective Interval history: Patient seen and evaluated this morning at bedside. Patient reports that she been sick previously before she came into the hospital with symptoms of some nausea and coughing. Patient feels like she may have had some fever as well. At this moment patient was able to tolerate p.o. diet this morning and has been given Levemir 5 units along with pre-meal coverage of 5 units. Patient otherwise at this time without acute complaints such as vomiting , diarrhea, abdominal cramping. Afebrile. Blood pressure systolically mid 80s for which copy lathe tender has ordered a fluid bolus for the patient. Patient currently mentating well. Physical Exam Vital signs: Last Vital Signs Temp 98.1 F 04/24/18 19:48 Pulse 98 H 04/25/18 09:06 Resp 23 04/25/18 09:06 BP 86/47 L 04/25/18 09:15 Pulse Ox 100 04/25/18 09:06 Intake & Output 04/23/18 04/24/18 04/25/18 04/26/18 06:59 06:59 06:59 06:59 Intake Total 3050 / 3050 105 / 105 Output Total 300 / 300 Balance 2750 / 2750 105 / 105 Weight 55 kg General: No acute distress, conversational. HEENT: EOMI, no tender submandibular or sublingual glands Cardia vascular: S1/S2. Respiratory: Clear to auscultation anteriorly posteriorly. No expiratory crackle. No intercostal muscle use. Gastro-intestinal: Soft, nontender, nondistended, no guarding or rebound appreciated. Positive bowel sounds Extremity: No lower extremity edema Results Labs CBC & Chem 7: 04/24/18 20:05 04/25/18 01:55 Imaging Imaging: Impressions Chest X-Ray 04/24/18 21:41 CONCLUSION: No acute cardiopulmonary disease. Assessment and Plan (1) Diabetes: Code(s): E11.9 - Type 2 diabetes mellitus without complications Status: Acute (2) NSTEMI (non-ST elevated myocardial infarction): Code(s): I21.4 - Non-ST elevation (NSTEMI) myocardial infarction Status: Acute (3) Nausea & vomiting: Code(s): R11.2 - Nausea with vomiting, unspecified Status: Acute (4) DKA (diabetic ketoacidoses): Code(s): E13.10 - Other specified diabetes mellitus with ketoacidosis without coma Status: Acute Endocrine: DKA, DM2, hypothyrodism - source of DKA i suspect is infection patient reports being ill prior to development of nausea/vomiting and reduced PO intake concerning for infection. CXR negative + UA not concerning however - Viral swab for infection. No influenza vaccination as per patient - levemir 15 units ( qAM) and 5 units pre-meal. - medium dose correction scale - zofran prn nausea - continue levothyroxine 88mcg Cardiology: NSTEMI - suspect troponemia secondary to cardiac stress while in DKA. - EKG reviewed - Cardiology consultation appreciated. Patient does NOT want any intervention whatsoever. - Trend troponin level until peaking - coreg 3.25mg BID, Add atorvastatin 40mg qHS Nephrology: MORGAN - due to dehydration from DKA. Fluid hydration provided. - BMP in am DVT ppx: SCDs Code: FC Dispo: step down medicine Plan reviewed with patient at the bedside.
[2018-04-25] MEDS ORDERED: Potassium Phosphate 500 MG Soluble Tablet PO ONE (11:00)
[2018-04-25] MEDS ORDERED: Mag Sulf 1 gm/100 ml Premix 100 ML IV.SIG ONE (12:00)
[2018-04-25] MEDS ORDERED: Insulin Detemir Inj 1,000 UNIT/10 ML Vial SQ ONE (13:00)
--- NOTE | 2018-04-25 13:33 | ECHRPT ---
Indication: Shortness of Breath CONCLUSIONS Normal left ventricular size. Wall thickness is measured at the upper limits of normal. The left ventricular systolic function is low normal with an estimated ejection fraction in the rang e of 50- 55%. [id number] mitral valve regurgitation. There is trace tricuspid valve regurgitation. The estimated pulmonary arterial pressure is 31 mmHg. BP: 109 / 65 HR: 94 Rhythm: MEASUREMENTS (Male / Female) Normal Values Technical Quality:Fair 2D ECHO LV Diastolic Diameter PLAX 3.9 cm 4.2 - 5.9 / 3.9 - 5.3 cm LV Systolic Diameter PLAX 2.7 cm IVS Diastolic Thickness 0.9 cm 0.6 - 1.0 / 0.6 - 0.9 cm LVPW Diastolic Thickness 0.9 cm 0.6 - 1.0 / 0.6 - 0.9 cm LV Relative Wall Thickness 0.5 RV Internal Dim ED PLAX 2.4 cm LVOT Diameter 1.9 cm Aortic Root Diameter 2.6 cm LA Systolic Diameter LX 3.3 cm 3.0 - 4.0 / 2.7 - 3.8 cm DOPPLER AV Peak Velocity 115.0 cm/s AV Peak Gradient 5.3 mmHg LVOT Peak Velocity 67.6 cm/s LVOT Peak Gradient 1.8 mmHg AV Area Cont Eq pk 1.7 cm Mitral E Point Velocity 96.3 cm/s Mitral A Point Velocity 104.0 cm/s Mitral E to A Ratio 0.9 LV E' Lateral Velocity 7.3 cm/s Mitral E to LV E' Lateral Ratio 13.2 LV E' Septal Velocity 7.4 cm/s Mitral E to LV E' Septal Ratio 13.0 TR Peak Velocity 231.0 cm/s TR Peak Gradient 21.3 mmHg Right Atrial Pressure 10.0 mmHg Pulmonary Artery Systolic Pressu 31.3 mmHg Right Ventricular Systolic Press 31.3 mmHg PV Peak Velocity 73.3 cm/s PV Peak Gradient 2.1 mmHg FINDINGS LEFT VENTRICLE Normal left ventricular size. Wall thickness is measured at the upper limits of normal. The left ventricular systolic function is low normal with an estimated ejection fraction in the rang e of 50- 55%. RIGHT VENTRICLE Normal right ventricular size and systolic function. LEFT ATRIUM The left atrial size is normal. RIGHT ATRIUM The right atrial size is normal. ATRIAL SEPTUM Normal atrial septal thickness without atrial level shunting by limited color doppler interrogation. AORTA The aortic root and proximal ascending aorta are normal in size on limited imaging. MITRAL VALVE [id number] mitral valve regurgitation. AORTIC VALVE Trileaflet aortic valve. No aortic valve stenosis or regurgitation. TRICUSPID VALVE There is trace tricuspid valve regurgitation. The estimated pulmonary arterial pressure is 31 mmHg. PULMONARY VALVE No pulmonary valve regurgitation or stenosis. VESSELS The inferior vena cava is normal in size. PERICARDIUM No pericardial effusion. Karan Holloway MD, FACC, [facility] [place] (Electronically Signed) Final Date:25 April 2018 13:33
--- NOTE | 2018-04-25 13:57 | ECG ---
Date Performed: 04/25/2018 Time Performed: 03:14:02 PTAGE: 77 years EKG: SINUS TACHYCARDIA NONSPECIFIC ST & T-WAVE ABNORMALITY ABNORMAL RHYTHM ECG Since the PREVIOUS TRACING , no significant change noted PREVIOUS TRACIN04/24/2018 20.18 DOCTOR: Mykel Davis Interpretating Date/Time 04/25/2018 13:51:40
--- NOTE | 2018-04-25 13:59 | ECG ---
Date Performed: 04/24/2018 Time Performed: 20:18:10 PTAGE: 77 years EKG: SINUS TACHYCARDIA NONSPECIFIC ST & T-WAVE ABNORMALITY ABNORMAL RHYTHM ECG Since the PREVIOUS TRACING , no significant change noted PREVIOUS TRACIN01/13/2017 11.54 DOCTOR: Mykel Davis Interpretating Date/Time 04/25/2018 13:53:20
[2018-04-25] MEDS: Insulin NovoLIN Regular Correctional Sugar Inj SQ SCH ×2 (16:58→22:21)
[2018-04-25 17:44] LABS: Albumin 2.3 g/dL (3.4-5.0); Calcium 7.4 mg/dL (8.5-10.1); Carbon Dioxide 21.9 meq/L (21.0-32.0); Phosphorus 2.5 mg/dL (2.5-4.9); Total Protein 4.5 g/dL (6.4-8.2)
[2018-04-25] MEDS: Famotidine 20 MG Tablet PO SCH (22:24)
[2018-04-26] MEDS ORDERED: Chlorhexidine Gluconate 2% 1 Pack (2 Cloths) TOPICAL PRN (04:00)
[2018-04-26 06:11] LABS: Hematocrit 31.3 % (35.0-46.0); Hemoglobin 10.4 gm/dL (11.6-15.3); Mean Corpuscular HGB Conc 33.2 % (32.0-36.0); Mean Corpuscular Hemoglobin 29.9 pg (27.0-34.0); Mean Corpuscular Volume 89.9 fL (80.0-100.0); Mean Platelet Volume 8.2 fL (7.0-11.0); Platelet Count 177 th/mm3 (150-450); Red Blood Count 3.49 mil/mm3 (4.00-5.30); Red Cell Distribution Width 12.8 % (11.6-17.2)
[2018-04-26 06:22] LABS: Potassium 3.8 meq/L (3.5-5.1)
[2018-04-26 06:25] LABS: Calcium 7.8 mg/dL (8.5-10.1)
[2018-04-26] MEDS: Chlorhexidine Gluconate 2% 1 Pack (2 Cloths) TOPICAL SCH ×2 (07:11)
[2018-04-26 07:35] LABS: Carbon Dioxide 25.2 meq/L (21.0-32.0); Phosphorus 2.8 mg/dL (2.5-4.9)
[2018-04-26] MEDS: Insulin NovoLIN Regular Correctional Sugar Inj SQ SCH ×4 (08:22→21:00)
[2018-04-26] MEDS: Aspirin 325 MG Tablet PO SCH (08:40)
[2018-04-26] MEDS: Famotidine 20 MG Tablet PO SCH ×2 (08:40→20:19)
[2018-04-26] MEDS: Insulin Detemir Inj 1,000 UNIT/10 ML Vial SQ SCH (08:40)
[2018-04-26] MEDS: Polyethylene Glycol 3350 17 GM Packet PO SCH ×2 (08:41→20:20)
[2018-04-26] MEDS: Senna/Docusate Sodium 8.6/50 MG Tablet PO SCH ×2 (08:42→20:20)
--- NOTE | 2018-04-26 12:58 | ECG ---
Date Performed: 04/25/2018 Time Performed: 10:33:05 PTAGE: 77 years EKG: Sinus rhythm MINIMAL ST DEPRESSION BORDERLINE ECG Since the PREVIOUS TRACING , no significant change noted PREVIOUS TRACIN04/25/2018 03.14 DOCTOR: Mykel Davis Interpretating Date/Time 04/26/2018 12:56:41
--- NOTE | 2018-04-26 20:29 | P.PNIM ---
Subjective Interval history: Acute events overnight. Patient is tolerating p.o. diet says she is feeling fine Patient found to be guaiac positive on stool studies. Patient denies noticing stool has been darker. Nursing present at bedside corroborates that story. Patient reports that in the past she has had endoscopy and colonoscopy but does not know the results of those studies. Patient denied significant NSAID or alcohol use. Patient denies palpitations, dizziness, shortness of breath, or chest pain actively. Physical Exam Vital signs: Last Vital Signs Temp 98.2 F 04/26/18 16:00 Pulse 80 04/26/18 16:00 Resp 20 04/26/18 16:00 BP 143/72 H 04/26/18 16:00 Pulse Ox 95 04/26/18 20:00 Intake & Output 04/24/18 04/25/18 04/26/18 04/27/18 06:59 06:59 06:59 06:59 Intake Total 3050 / 3050 2805 / 2805 720 / 720 Output Total 300 / 300 450 / 450 600 / 600 Balance 2750 / 2750 2355 / 2355 120 / 120 Weight 55 kg 59.1 kg General: No acute distress, conversational Cardia vascular: S1/S2 Gastrointestinal: Soft, nontender, nontender, no guarding or rebound appreciated. Rectal exam performed at bedside with nursing for supervision and no blood noted on gloved finger or evidence of external hemorrhoid Respiratory: Clear to auscultation anteriorly and posteriorly Extremity: 2+ radial and dorsalis pedis pulse. Results Labs CBC & Chem 7: 04/26/18 05:50 04/26/18 05:50 Labs: Microbiology 04/24/18 22:15 Blood - Peripheral Aerobic Blood Culture - Preliminary No growth in 2 days 04/24/18 22:15 Blood - Peripheral Anaerobic Blood Culture - Preliminary No growth in 2 days 04/24/18 22:00 Blood - Peripheral Aerobic Blood Culture - Preliminary No growth in 2 days 04/24/18 22:00 Blood - Peripheral Anaerobic Blood Culture - Preliminary No growth in 2 days 04/25/18 14:28 Stool Stool Occult Blood (MESSI) - Final Hemoccult positive Assessment and Plan (1) Diabetes: Code(s): E11.9 - Type 2 diabetes mellitus without complications Status: Acute (2) NSTEMI (non-ST elevated myocardial infarction): Code(s): I21.4 - Non-ST elevation (NSTEMI) myocardial infarction Status: Acute (3) Nausea & vomiting: Code(s): R11.2 - Nausea with vomiting, unspecified Status: Acute (4) DKA (diabetic ketoacidoses): Code(s): E13.10 - Other specified diabetes mellitus with ketoacidosis without coma Status: Acute Endocrine: DKA (resolved), DM2, hypothyrodism - source of DKA i suspect is infection patient reports being ill prior to development of nausea/vomiting and reduced PO intake concerning for infection. CXR negative. Suspect patient may have had a viral infection and is doing well. - levemir 19 units ( qAM) and 5 units pre-meal. - medium dose correction scale - zofran prn nausea - continue levothyroxine 88mcg Gastroenterology: White positive stool Patient hemodynamically stable with hemoglobin stable. Patient may follow-up outpatient GI for consideration of colonoscopy/EGD Cardiology: NSTEMI - suspect troponemia secondary to cardiac stress while in DKA. - EKG reviewed - Cardiology consultation appreciated. Patient does NOT want any intervention and prefers to follow-up with her primary doctor for referral if needed. - Trend troponin level until peaking - coreg 3.25mg BID, atorvastatin 40mg qd Nephrology: MORGAN -Resolved. DVT ppx: SCDs Code: FC Dispo: step down medicine Progress Note: Quality VTE Deep Vein Thrombosis/Pulmonary Embolism Present on Admission: No
[2018-04-27] MEDS: Chlorhexidine Gluconate 2% 1 Pack (2 Cloths) TOPICAL SCH ×2 (04:12)
[2018-04-27 06:18] LABS: Hematocrit 32.3 % (35.0-46.0); Hemoglobin 10.7 gm/dL (11.6-15.3); Mean Corpuscular HGB Conc 33.3 % (32.0-36.0); Mean Corpuscular Hemoglobin 29.9 pg (27.0-34.0); Mean Corpuscular Volume 89.8 fL (80.0-100.0); Mean Platelet Volume 8.4 fL (7.0-11.0); Platelet Count 167 th/mm3 (150-450); Red Blood Count 3.59 mil/mm3 (4.00-5.30); Red Cell Distribution Width 12.9 % (11.6-17.2); White Blood Count 6.9 th/mm3 (4.0-11.0)
[2018-04-27 07:06] LABS: Calcium 7.9 mg/dL (8.5-10.1); Carbon Dioxide 28.1 meq/L (21.0-32.0); Magnesium 1.8 mg/dL (1.5-2.5); Phosphorus 2.5 mg/dL (2.5-4.9); Potassium 4.4 meq/L (3.5-5.1)
[2018-04-27] MEDS: Aspirin 325 MG Tablet PO SCH (08:25)
[2018-04-27] MEDS: Famotidine 20 MG Tablet PO SCH ×2 (08:25→21:24)
[2018-04-27] MEDS: Insulin NovoLIN Regular Correctional Sugar Inj SQ SCH ×4 (08:26→21:31)
[2018-04-27] MEDS: Insulin Detemir Inj 1,000 UNIT/10 ML Vial SQ SCH (08:26)
[2018-04-27] MEDS: Senna/Docusate Sodium 8.6/50 MG Tablet PO SCH ×2 (08:27→21:26)
[2018-04-27] MEDS: Polyethylene Glycol 3350 17 GM Packet PO SCH ×2 (08:27→21:26)
--- NOTE | 2018-04-27 09:28 | P.PNIM ---
Subjective Interval history: Patient seen and examined Patient reports that she had nausea overnight overnight patient given meal which increased BG > 400. No emesis. Patient reports that she norticed a darker stool overnight ( green/dark brown) No active chest pain Physical Exam Vital signs: Last Vital Signs Temp 98.7 F 04/27/18 04:00 Pulse 88 04/27/18 04:00 Resp 18 04/27/18 04:00 BP 119/57 L 04/27/18 00:00 Pulse Ox 92 L 04/27/18 04:00 Intake & Output 04/25/18 04/26/18 04/27/18 04/28/18 06:59 06:59 06:59 06:59 Intake Total 3050 / 3050 2805 / 2805 960 / 960 Output Total 300 / 300 450 / 450 1601 / 1601 Balance 2750 / 2750 2355 / 2355 -641 / -641 Weight 55 kg 59.1 kg 57.6 kg gen: nad heent: eomi, no pale conjunctiva cvs: s1/s2 resp: CTA bilaterally gi: soft, minimal tenderness, + bowel sounds, no guarding or rebound skin: + vitiligo ext: no edema, no calf tenderness Results Labs CBC & Chem 7: 04/27/18 05:44 04/27/18 05:44 Labs: Microbiology 04/24/18 22:15 Blood - Peripheral Aerobic Blood Culture - Preliminary No growth in 2 days 04/24/18 22:15 Blood - Peripheral Anaerobic Blood Culture - Preliminary No growth in 2 days 04/24/18 22:00 Blood - Peripheral Aerobic Blood Culture - Preliminary No growth in 2 days 04/24/18 22:00 Blood - Peripheral Anaerobic Blood Culture - Preliminary No growth in 2 days Assessment and Plan (1) Diabetes: Code(s): E11.9 - Type 2 diabetes mellitus without complications Status: Acute (2) NSTEMI (non-ST elevated myocardial infarction): Code(s): I21.4 - Non-ST elevation (NSTEMI) myocardial infarction Status: Acute (3) Nausea & vomiting: Code(s): R11.2 - Nausea with vomiting, unspecified Status: Acute (4) DKA (diabetic ketoacidoses): Code(s): E13.10 - Other specified diabetes mellitus with ketoacidosis without coma Status: Acute Endocrine: DKA (resolved), DM2, hypothyrodism - source of DKA i suspect is infection patient reports being ill prior to development of nausea/vomiting and reduced PO intake concerning for infection. CXR negative. Suspect patient may have had a viral infection and is doing well. - levemir 19 units ( qAM) and 5 units pre-meal. - medium dose correction scale - zofran prn nausea - continue levothyroxine 88mcg - A1c as per patient outpatient was > 11. explained that nausea may be areflective of likely gastroparesis which will need to be managed with tighter glucose control. Gastroenterology: White positive stool Patient hemodynamically stable with hemoglobin stable. Patient may follow-up outpatient GI for consideration of colonoscopy/EGD Cardiology: NSTEMI - suspect troponemia secondary to cardiac stress while in DKA. - EKG reviewed - Cardiology consultation appreciated. Patient does NOT want any intervention and prefers to follow-up with her primary doctor for referral if needed. - Trend troponin level until peaking - coreg 3.25mg BID, atorvastatin 40mg qd Nephrology: MORGAN -Resolved. DVT ppx: SCDs Code: FC Dispo: step down medicine Progress Note: Quality VTE Deep Vein Thrombosis/Pulmonary Embolism Present on Admission: No
[2018-04-27] MEDS ORDERED: PEG 3350/E-Lyte Soln 4000 ML Bottle PO ONE (17:00)
--- NOTE | 2018-04-27 19:13 | MB ---
cc: Zakia Louie MD DATE: 04/27/2018 REFERRING PHYSICIAN: Dr. Smith REASON FOR REFERRAL: Anemia, heme-positive stool, diarrhea, dysphagia. Thank you for the consultation. HISTORY OF PRESENT ILLNESS: The patient is a pleasant 77-year-old lady who has long history of diabetes. The patient had also infection. She came in with DKA elevated creatinine more than 2, and found to have heme positive stool, she dropped her hemoglobin because of that. The patient stated that she had nausea, vomiting and occasional dysphagia, but she also has significant diarrhea, according to her, that has been going on for a while on and off also. Last endoscopy and colonoscopy was at least 5 years ago years ago. She denies any other complaints such as constipation or weight loss. PAST MEDICAL HISTORY: Significant for: 1. Diabetes. 2. Hysterectomy. 3. Hypothyroidism. 4. Renal insufficiency. PAST SURGICAL HISTORY: Tonsillectomy. FAMILY HISTORY: Noncontributory. SOCIAL HISTORY: Negative for tobacco, drug or alcohol. No travel in the recent past. MEDICATIONS: Reviewed in the chart. ALLERGIES: PROCAINE. PHYSICAL EXAMINATION: GENERAL: Alert, oriented, in no acute distress. VITAL SIGNS: Stable. HEENT: Pupils are normal reactive to light. NECK: Supple. CHEST: Clear to auscultation and percussion. CARDIAC: Regular rate and rhythm. No murmur or gallops. ABDOMEN: Soft, nondistended. Mild discomfort in the midepigastric area. Positive bowel sounds. EXTREMITIES: No edema, clubbing or cyanosis. NEUROLOGIC: Intact. PSYCHOLOGIC: Appropriate. LABORATORY DATA: White count on admission was 17.4, now 6.9, hemoglobin 10.7, platelet 167. INR 1.1. Blood gas on admission was significant for pH of 7.21. Kidney function resolved with creatinine of 0.73 at this time. Liver function tests are normal. ASSESSMENT AND PLAN: A 77-year-old lady with diabetic ketoacidosis, nausea, vomiting. The patient has heme positive stool, which could be related to the vomiting, but she also has dysphagia and chronic diarrhea with mild anemia. I recommend an upper endoscopy and a colonoscopy. Discussed with the patient the procedure and complications. She is agreeable to have it done. This will be done tomorrow by Dr. De La Torre, who is covering the service for us. MD Brandi Saunders , 03:35 PM , 03:44 PM
[2018-04-28] MEDS: Chlorhexidine Gluconate 2% 1 Pack (2 Cloths) TOPICAL SCH ×2 (06:05)
[2018-04-28 06:15] LABS: Hematocrit 33.5 % (35.0-46.0); Hemoglobin 11.2 gm/dL (11.6-15.3); Mean Corpuscular HGB Conc 33.3 % (32.0-36.0); Mean Corpuscular Hemoglobin 29.9 pg (27.0-34.0); Mean Corpuscular Volume 89.7 fL (80.0-100.0); Mean Platelet Volume 8.8 fL (7.0-11.0); Platelet Count 186 th/mm3 (150-450); Red Blood Count 3.74 mil/mm3 (4.00-5.30); Red Cell Distribution Width 12.4 % (11.6-17.2); White Blood Count 5.4 th/mm3 (4.0-11.0)
[2018-04-28 06:19] LABS: Chloride 102 meq/L (98-107); Potassium 3.9 meq/L (3.5-5.1); Sodium 140 meq/L (136-145)
[2018-04-28 06:22] LABS: Calcium 8.2 mg/dL (8.5-10.1)
[2018-04-28 06:25] LABS: Prothrombin Time 9.8 sec (9.8-11.6)
[2018-04-28 06:39] LABS: Anion Gap 7 meq/L (5-15); Blood Urea Nitrogen 14 mg/dL (7-18); Carbon Dioxide 31.4 meq/L (21.0-32.0); Glomerular Filtration Rate Greater Than 89 mL/min (>89); Glucose,Random 145 mg/dL (74-106); Magnesium 1.8 mg/dL (1.5-2.5); Phosphorus 2.8 mg/dL (2.5-4.9)
[2018-04-28] MEDS ORDERED: Chlorhexidine Gluconate 2% 1 Pack (2 Cloths) TOPICAL ONE (06:39)
[2018-04-28] MEDS ORDERED: Sodium Chlor 0.9% Inj 500 ML IV.SIG SCH (07:00)
--- NOTE | 2018-04-28 07:55 | GIPROC ---
[facility] [address] [place] [address], [id number] EGD PROCEDURE REPORT EXAM DATE: 04/28/2018 PATIENT NAME: Peggy Cobb MR #: [id number] BIRTHDATE: 1940 ATTENDING: Paris Webster MD ORDER #: [id number] STENOCAPTIONER: Tammi Bajwa and Nay Burnett STATUS: inpatient INDICATIONS: The patient is a 77 yr old female here for an EGD due to gi bleeding PROCEDURE PERFORMED: EGD w/ biopsy MEDICATIONS: None and Per Anesthesia. TOPICAL ANESTHETIC: none CONSENT: The patient understands the risks and benefits of the procedure and understands that these risks include, but are not limited to: sedation, allergic reaction, infection, perforation and/or bleeding. Alternative means of evaluation and treatment include, among others: physical exam, x-rays, and/or surgical intervention. The patient elects to proceed with this endoscopic procedure. medical equipment was checked for proper function. Hand hygiene and appropriate measures for infection prevention was taken. After the risks, benefits and alternatives of the procedure were thoroughly explained, Informed consent was verified, confirmed and timeout was successfully executed by the treatment team. The patient was anesthetized with topical anesthesia and the EC-[id number] (Pedi C) endoscope was introduced through the mouth and advanced to the second portion of the duodenum. Retroflexed views revealed a hiatal hernia The gastroscope was then slowly withdrawn and removed. Duodenitis second portion-biopsy gastritis antrum-biopsy hiatal hernia Schatzki's ring. ADVERSE EVENTS: There were no complications. IMPRESSIONS: 1. Duodenitis second portion-biopsy gastritis antrum-biopsy 2. Retroflexed views revealed a hiatal hernia RECOMMENDATIONS: 1. Await biopsy results. Biopsy results will not be ready for 7-10 days. If you don't hear from us in two weeks, call our office for biopsy results. 2. Anti-reflux regimen 3. Continue PPI 4. Avoid NSAIDS 5. Ok to dc home from gi point ok for anticoagulation if nedded if dc fu gi in 8 weeks avoid nsaids PATIENT CONDITION: stable DISPOSITION: Inpatient REPEAT EXAM: Return 3 years EGD Paris Webster MD eSigned: Paris Webster MD 04/28/2018 7:55 AM cc: PATIENT NAME: Peggy Cobb MR#: [id number]
--- NOTE | 2018-04-28 07:57 | GIPROC ---
[facility] [address] [place] [address], [id number] COLONOSCOPY PROCEDURE REPORT EXAM DATE: 04/28/2018 PATIENT NAME: Peggy Cobb MR #: [id number] BIRTHDATE: 1940 ENDOSCOPIST: Paris Webster MD ORDER #: [id number] NETWORK STRATEGIST: Tammi Bajwa and Nay Burnett STATUS: inpatient INDICATIONS: The patient is a 77 yr old female here for a colonoscopy due to gi bleeding PROCEDURE PERFORMED: Colonoscopy, diagnostic MEDICATIONS: None and Per Anesthesia. PREP QUALITY: fair PREP TYPE:Other: ESTIMATED BLOOD LOSS: None CONSENT: The patient understands the risks and benefits of the procedure and understands that these risks include, but are not limited to: sedation, allergic reaction, infection, perforation and/or bleeding. Alternative means of evaluation and treatment include, among others: physical exam, x-rays, and/or surgical intervention. The patient elects to proceed with this endoscopic procedure. medical equipment was checked for proper function. Hand hygiene and appropriate measures for infection prevention was taken. After the risks, benefits and alternatives of the procedure were thoroughly explained, Informed consent was verified, confirmed and timeout was successfully executed by the treatment team. A digital exam revealed external hemorrhoids The Pentax EC-3490Li endoscope was introduced through the anus and advanced to the cecum, which was identified by both the appendix and ileocecal valve. The instrument was then slowly withdrawn as the colon was fully examined. COLON FINDINGS: Diverticulosis internal hemorrhoids. Retroflexed views revealed internal hemorrhoids and Retroflexed views revealed small internal hemorrhoids The scope was then completely withdrawn from the patient and the procedure terminated. PROCEDURE WITHDRAWAL TIME:6minutes ADVERSE EVENTS: There were no complications. IMPRESSIONS: 1. Diverticulosis internal hemorrhoids 2. Retroflexed views revealed internal hemorrhoids 3. Retroflexed views revealed small internal hemorrhoids 4. Revealed external hemorrhoids RECOMMENDATIONS: 1. Benefiber 2 tsp daily 2. Probiotics from any [employer] or health food store 3. Benefiber 2 tsp daily RECALL: Return 10 years Colonoscopy Paris Webster MD eSigned: Paris Webster MD 04/28/2018 7:56 AM cc:
[2018-04-28] MEDS ORDERED: Diatrizoate Meglum/Diatrizoate Sod Liq 9 ML UDC PO ONE ×2 (08:01→17:15)
[2018-04-28] MEDS: Famotidine 20 MG Tablet PO SCH (09:47)
[2018-04-28] MEDS: Insulin Detemir Inj 1,000 UNIT/10 ML Vial SQ SCH (09:49)
[2018-04-28] MEDS: Aspirin 325 MG Tablet PO SCH (09:49)
[2018-04-28] MEDS: Insulin NovoLIN Regular Correctional Sugar Inj SQ SCH ×4 (09:51→22:06)
[2018-04-28] MEDS: Senna/Docusate Sodium 8.6/50 MG Tablet PO SCH ×2 (09:52→21:53)
[2018-04-28] MEDS: Polyethylene Glycol 3350 17 GM Packet PO SCH ×2 (09:52→21:53)
--- NOTE | 2018-04-28 10:33 | P.PNIM ---
Subjective Interval history: Patient seen and evaluated this morning at the bedside shortly after having EGD/colonoscopy. Patient a symptomatically at this time. Patient was found to have evidence of internal hemorrhoids and diverticulosis which may explain the guaiac positive stool noted. The patient that generally diverticulosis tends to bleed but at this time can be monitored. CAT scan currently pending of abdomen Patient denies active chest pain at this moment, nausea, vomiting, diarrhea. Physical Exam Vital signs: Last Vital Signs Temp 98.5 F 04/28/18 08:02 Pulse 81 04/28/18 08:30 Resp 16 04/28/18 08:30 BP 143/78 H 04/28/18 08:30 Pulse Ox 99 04/28/18 08:30 Intake & Output 04/26/18 04/27/18 04/28/18 04/29/18 06:59 06:59 06:59 06:59 Intake Total 2805 / 2805 960 / 960 1160 / 1160 200 / 200 Output Total 450 / 450 1601 / 1601 720 / 720 Balance 2355 / 2355 -641 / -641 440 / 440 200 / 200 Weight 59.1 kg 57.6 kg 57 kg General: No acute distress, conversational Cardia vascular: S1 4/S2 Respiratory: Clear to auscultation anterior and posteriorly without wheezing, rales, rhonchi Muscular skeletal: Chronic fat soft tissue mass on back Gastrointestinal: Soft, nontender, nondistended, no guarding or rebound Extremity: 2+ dorsalis pedis pulse, no calf tenderness Results Labs CBC & Chem 7: 04/28/18 05:35 04/28/18 05:35 Labs: Microbiology 04/24/18 22:15 Blood - Peripheral Aerobic Blood Culture - Preliminary No growth in 3 days 04/24/18 22:15 Blood - Peripheral Anaerobic Blood Culture - Preliminary No growth in 3 days 04/24/18 22:00 Blood - Peripheral Aerobic Blood Culture - Preliminary No growth in 3 days 04/24/18 22:00 Blood - Peripheral Anaerobic Blood Culture - Preliminary No growth in 3 days Assessment and Plan (1) Diabetes: Code(s): E11.9 - Type 2 diabetes mellitus without complications Status: Acute (2) NSTEMI (non-ST elevated myocardial infarction): Code(s): I21.4 - Non-ST elevation (NSTEMI) myocardial infarction Status: Acute (3) Nausea & vomiting: Code(s): R11.2 - Nausea with vomiting, unspecified Status: Acute (4) DKA (diabetic ketoacidoses): Code(s): E13.10 - Other specified diabetes mellitus with ketoacidosis without coma Status: Acute Endocrine: DKA (resolved), DM2, hypothyrodism - source of DKA i suspect is infection patient reports being ill prior to development of nausea/vomiting and reduced PO intake concerning for infection. CXR negative. Suspect patient may have had a viral infection and is doing well. - levemir 19 units ( qAM) and 5 units pre-meal. - medium dose correction scale - zofran prn nausea - continue levothyroxine 88mcg - A1c as per patient outpatient was > 11. explained that nausea may be reflective of likely gastroparesis which will need to be managed with tighter glucose control. Gastroenterology: Diverticulosis, internal hemorrhoids EGD colonoscopy - Avoid NSAIDs. PPI therapy. Patient to follow-up outpatient for biopsy results with gastroenterology service Cardiology: NSTEMI - suspect troponemia secondary to cardiac stress while in DKA. - EKG reviewed - Cardiology consultation appreciated. Patient does NOT want any intervention and prefers to follow-up with her primary doctor for referral if needed. - Trend troponin level until peaking - coreg 3.25mg BID, atorvastatin 40mg qd Nephrology: MORGAN -Resolved. DVT ppx: SCDs Code: FC Diet: Diabetic Dispo: MedSurg Progress Note: Quality VTE Deep Vein Thrombosis/Pulmonary Embolism Present on Admission: No
--- NOTE | 2018-04-28 20:46 | CT ---
EXAM DATE: 04/28/2018 8:38 PM EST AGE/SEX: 77 years / Female INDICATIONS: GI bleeding. Nausea. Status post EGD and colonscopy. CLINICAL DATA: This is the patient's initial encounter. Patient reports that signs and symptoms have been present for 1 week and indicates a pain score of 7/10. MEDICAL/SURGICAL HISTORY: Diabetes. Hypothyroidism. Hysterectomy. Tonsillectomy. RADIATION DOSE: 8.30 CTDI (mGy) COMPARISON: No prior exams available for comparison. TECHNIQUE: Multiple contiguous axial images were obtained through the abdomen. Images were obtained using multiple row detector helical technique. Using automated exposure control and adjustment of the mA and/or kV according to patient size, radiation dose was kept as low as reasonably achievable to o btain optimal diagnostic quality images. DICOM format image data is available electronically for rev iew and comparison. FINDINGS: Lower Lungs: 67 mm nodule in the right lower lobe anteriorly. Tiny pleural effusions bilaterally. Liver: The liver has a homogeneous density without space-occupying lesion. There is no dilation of th e biliary tree. Spleen: Homogeneous density without enlargement. Pancreas: Unremarkable without mass or calcification. Kidneys: Normal in size and shape. No evidence of mass or hydronephrosis. Adrenal Glands: Unremarkable. Aorta: The aorta and proximal iliac vessels are grossly unremarkable without aneurysmal dilation. Bowel/Mesentery: Diverticulosis colon without diverticulitis. Abdominal Wall: Intact. Retroperitoneum: No evidence of adenopathy in the retrocrural, para-aortic, or deep pelvic regions. Bladder: Contours are smooth. Reproductive Organs: No abnormal masses or calcifications seen. The uterus is absent. Inguinal: The inguinal region is unremarkable without evidence of adenopathy. Bony Structures: Scoliosis and degenerative changes lumbar spine. CONCLUSION: 1. A 6-7 mm nodule right lower lobe. Follow-up CT chest in 3 months recommended for stability. 2. No acute inflammatory process. 3. Scattered diverticulosis without diverticulitis. Electronically signed by: Nomi Vargas MD 04/28/2018 8:44 PM EST
[2018-04-29] MEDS: Chlorhexidine Gluconate 2% 1 Pack (2 Cloths) TOPICAL SCH (06:46)
[2018-04-29 09:01] LABS: Potassium 4.2 meq/L (3.5-5.1)
[2018-04-29 09:06] LABS: Calcium 8.7 mg/dL (8.5-10.1); Carbon Dioxide 33.6 meq/L (21.0-32.0)
[2018-04-29 09:12] LABS: Phosphorus 3.9 mg/dL (2.5-4.9)
[2018-04-29] MEDS: Senna/Docusate Sodium 8.6/50 MG Tablet PO SCH (09:23)
[2018-04-29 09:30] VITALS: RESP 20
[2018-04-29] MEDS: Insulin Detemir Inj 1,000 UNIT/10 ML Vial SQ SCH (10:03)
[2018-04-29] MEDS: Insulin NovoLIN Regular Correctional Sugar Inj SQ SCH ×3 (10:04→18:05)
[2018-04-29] MEDS: Aspirin 325 MG Tablet PO SCH (10:09)
[2018-04-29] MEDS: Polyethylene Glycol 3350 17 GM Packet PO SCH (10:09)
[2018-04-29 13:00] VITALS: PULSE 98
--- NOTE | 2018-04-29 17:08 | P.PNGI ---
Subjective Interval history: N/V improved, still with some upper abdominal cramps Physical Exam Vital signs: Vital Signs 04/28/18 20:00 04/29/18 00:00 04/29/18 04:00 Temperature 97.5 F L 95.5 F L 97.8 F Pulse Rate 87 91 H 80 Respiratory Rate 18 18 14 Blood Pressure 133/62 155/69 H Pulse Oximetry 98 96 97 04/29/18 08:00 04/29/18 09:00 04/29/18 12:00 Temperature 98.6 F 97.5 F L Pulse Rate 101 H 98 H 98 H Respiratory Rate 20 20 Blood Pressure 137/73 148/69 H Pulse Oximetry 97 99 Intake & Output 04/28/18 04/29/18 04/29/18 18:59 06:59 18:59 Intake Total 1145 / 1145 90 / 90 Output Total 200 / 200 400 / 400 Balance 945 / 945 -310 / -310 Weight 59 kg Intake: Oral 945 / 945 90 / 90 Anesthesia Amount 200 / 200 Output: Urine 200 / 200 400 / 400 Other: Date of Last Bowel Movement 04/28/18 04/28/18 - Constitutional no acute distress - Routine HEENT Exam Head: Present: normocephalic - Routine Respiratory Exam Present: CTA bilaterally - Routine Cardiovascular Exam Present: RRR - Routine Abdominal Exam Present: soft, normoactive bowel sounds Results - Labs CBC & Chem 7: 04/28/18 05:35 04/29/18 08:30 Laboratory Results - last 24 hr 04/28/18 04/29/18 04/29/18 21:50 08:17 08:30 Sodium 139 Potassium 4.2 Chloride 100 Carbon Dioxide 33.6 H Anion Gap 5 BUN 16 Creatinine 0.74 Estimated GFR 76 L POC Glucose 286 H 181 H Random Glucose 200 H Calcium 8.7 Phosphorus 3.9 D Magnesium 2.0 04/29/18 04/29/18 04/29/18 12:03 15:43 16:47 Sodium Potassium Chloride Carbon Dioxide Anion Gap BUN Creatinine Estimated GFR POC Glucose 516 H* 127 H 57 L Random Glucose Calcium Phosphorus Magnesium Microbiology 04/24/18 22:15 Blood - Peripheral Aerobic Blood Culture - Final No growth in 5 days 04/24/18 22:15 Blood - Peripheral Anaerobic Blood Culture - Final No growth in 5 days 04/24/18 22:00 Blood - Peripheral Aerobic Blood Culture - Final No growth in 5 days 04/24/18 22:00 Blood - Peripheral Anaerobic Blood Culture - Final No growth in 5 days - Imaging Impressions Abdomen/Pelvis CT 04/28/18 00:00 CONCLUSION: 1. A 6-7 mm nodule right lower lobe. Follow-up CT chest in 3 months recommended for stability. 2. No acute inflammatory process. 3. Scattered diverticulosis without diverticulitis. Assessment and Plan - Plan Seen and examined, over all improved. Discussed results of endoscopies and CT with her. Recommend outpatient Gastric emptying scan. Patient being dced home today. GI fu upon dc. Thank you
[2018-04-29 17:20] VITALS: BP 130/70; TEMP 97.4; O2SAT 98
== END 2018-04-29 18:46 | disposition home or self-care (01) ==
LOC: PHED 19:44 → PHEDA 21:46 → PHEDH 04-25 02:41 → PHICU 04-25 07:30 → PH3 04-27 17:19
PROVIDERS: ADMIT Internal Medicine; ATTEND Internal Medicine
PROC: COLONOS (2018-04-28 07:32)
PROC: PANENDO (2018-04-28 07:32)
DX: K57.90 Diverticulosis of intestine, part unspecified, without perforation or abscess without bleeding; E11.10 Type 2 diabetes mellitus with ketoacidosis without coma; Z79.899 Other long term (current) drug therapy; K64.8 Other hemorrhoids; K29.80 Duodenitis without bleeding; Z59.0 Homelessness; K22.2 Esophageal obstruction; N17.9 Acute kidney failure, unspecified; R13.10 Dysphagia, unspecified; K64.4 Residual hemorrhoidal skin tags; Z79.890 Hormone replacement therapy; Z79.4 Long term (current) use of insulin; R19.5 Other fecal abnormalities; R00.0 Tachycardia, unspecified; R11.2 Nausea with vomiting, unspecified; K29.70 Gastritis, unspecified, without bleeding; I21.A1 Myocardial infarction type 2; E03.9 Hypothyroidism, unspecified; Z90.710 Acquired absence of both cervix and uterus; E86.0 Dehydration; K44.9 Diaphragmatic hernia without obstruction or gangrene